=== PATIENT | female | born 1935 | race Caucasian/White ===

== ENCOUNTER 2022-05-11 13:31 | Outpatient (CLI) | payer MEDICARE, SELFPAY ==
--- NOTE | ~2022-05-11 | MR_ITS ---
EXAMINATION: MR hip RT wo con DATE: 05/11/2022 15:08 INDICATION: Right hip pain TECHNIQUE: Magnetic resonance imaging (MRI) of the right hip was performed without intravenous contr ast. Sequences included full-field axial PD-weighted FS FSE, fluid sensitive FSE STIR and T1-weighted FSE, coronal of the pelvis with PD-weighted FS FSE, T2-weighted FSE, fluid sensitive FSE STIR and T1 -weighted FSE, small field of view of the right hip with axial PD-weighted FS FSE, sagittal PD-weigh beba FS FSE, coronal PD-weighted FS FSE and coronal T2 weighted FSE. Additional radial T1-weighted FG R oriented orthogonal to the acetabular rim were obtained for evaluation of the labrum. COMPARISON: None FINDINGS: Bones/labrum/cartilage: Metallic magnetic field artifact surrounding a left total hip arthroplasty which obscures the adjacen t bone and soft tissues about the left hip and proximal femur. Mild lumbar levocurvature with mild taiwo mbar spondylosis including severe lower lumbar facet osteoarthritis. No fracture, avascular necrosis or pathologic marrow replacing process. Severe osteoarthritis at the right hip with severe joint spac e narrowing with essentially [id number] apposition and prominent subarticular cystic changes at bot h sides of the joint space posterior superior medially and posteriorly. Moderate to large marginal os teophytes about the right femoral head. Linear tear at the base of the superolateral right acetabular labrum with more irregular degenerative tearing of the anterosuperior and anterior labrum. Fluid: Likely reactive small right hip joint effusion. Soft tissues: Intramuscular lipoma along the superficial margin of the distal right gluteus medius muscle which last sures 5.4 cm craniocaudally, 6.5 cm AP and 1.9 cm maximal medial to lateral thickness. Relatively sym metric likely age-related mild muscular atrophy in the pelvis and proximal thighs. The iliopsoas, glu teal and proximal hamstring tendons are normal although assessment of the left iliopsoas and gluteal tendons is somewhat limited by the magnetic field artifact related to the left total hip arthroplasty . Mild sigmoid diverticulosis without adjacent inflammatory change to suggest diverticulitis. Limited evaluation of visceral organs of the pelvis is unremarkable. No pathologically enlarged pelvic/ingu inal lymphadenopathy. IMPRESSION: 1. Severe right hip osteoarthritis with associated labral tear and small likely reactive joint effusi on. 2. Mild lumbar levocurvature with mild spondylosis and severe lower lumbar facet osteoarthritis. 3. Incidental 6.5 x 5.4 x 1.9 cm right gluteus medius intramuscular lipoma. Reviewed, dictated and finalized at location B. IMPRESSION: 1. Severe right hip osteoarthritis with associated labral tear and small likely reactive joint effusion. 2. Mild lumbar levocurvature with mild spondylosis and severe lower lumbar face t osteoarthritis. 3. Incidental 6.5 x 5.4 x 1.9 cm right gluteus medius intramuscular lipoma.
== END 2022-05-11 13:32 | disposition home or self-care (01) ==
PROVIDERS: PCP Internal Medicine; Visit Provider Anesthesiology Pain Medicine
DX: M16.11 Unilateral primary osteoarthritis, right hip (principal)
CPT/HCPCS: 73721

== ENCOUNTER 2022-09-26 13:47 | Outpatient (CLI) | payer MEDICARE, SELFPAY ==
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
== END 2022-09-26 13:48 | disposition home or self-care (01) ==
PROVIDERS: PCP Internal Medicine; Visit Provider Internal Medicine
DX: R07.89 Other chest pain (principal)
CPT/HCPCS: 71046

== ENCOUNTER 2024-03-22 08:49 | Emergency (ER) | payer MEDICARE, SELFPAY ==
[2024-03-22] VITALS (11 sets, daily range): BP systolic 156–192; BP diastolic 85–94; PULSE 61–94; RESP 13–23; TEMP 36.6; O2SAT 95–100
--- NOTE | ~2024-03-22 | CT_ITS ---
CT of the Abdomen and Pelvis: Indication: Abdominal pain Technique: 2.5 mm axial scans were obtained through the abdomen and pelvis following intravenous adm inistration of 100 cc of Omnipaque 350. Dose reduction technique was used on this scan by utilizing a utomated exposure control and iterative reconstruction technique. The dose-length product (DLP) was 6 32.14 mGy-cm. Findings: Scans through the lung bases are unremarkable. The liver, spleen, and adrenal glands are within normal limits. Gallbladder absent. There are several small cystic lesions of the pancreas, largest measuring approximately 1 cm in diameter. Bilateral no nobstructing renal stones are present, largest at the right lower pole measuring 8 mm. There is a 2 m m stone at the right UVJ versus just within the urinary bladder. There are probable parapelvic renal cysts bilaterally rather than hydronephrosis. There is a 1.3 cm densely calcified aneurysm probably o f the left renal artery (axial image 61). There is a 0.9 cm densely calcified aneurysm of the right r enal artery (axial image 72). There are atherosclerotic calcifications of the aorta. No lymphadenopa thy. No bowel obstruction or bowel wall thickening. There is no evidence to suggest acute appendicitis. Images through the pelvis are degraded by streak artifact from left hip arthroplasty. Urinary bladder unremarkable. No pelvic mass seen. No ascites. Small amount of left perinephric fluid present, nonsp ecific. Impression: Bilateral nonobstructing renal stones. 2 mm right UVJ stone versus urinary bladder stone. Probable bilateral parapelvic renal cysts rather than hydronephrosis. Small amount of left perinephric fluid, nonspecific. Correlate for pancreatitis or calyceal rupture. Bilateral renal artery aneurysms, densely calcified, as detailed above. Multiple small cystic lesions the pancreas, likely low malignant potential lesions. Consider follow-u p exam in one year to reassess. Reviewed, dictated and finalized at location . Impression: Bilateral nonobstructing renal stones. 2 mm right UVJ stone versus urinary blad mellisa stone. Probable bilateral parapelvic renal cysts rather than hydronephrosis. Small amount of left perinephric fluid, nonspecific. Correlate for pancreatitis or calyceal rupture. Bilateral renal artery aneurysms, densely calcified, as detailed above. Multiple small cystic lesions the pancreas, likely low malignant potential lesi ons. Consider follow-up exam in one year to reassess.
--- NOTE | 2024-03-22 09:11 | ED.GENADULT ---
HPI - General Adult General Chief complaint: Abdominal Pain Stated complaint: n/v, weakness, L flank pain Time Seen by Provider: 03/22/24 08:55 History of Present Illness HPI narrative: Sophia Noramn is an 88 y/o female with PMHx of HTN/ Afib/ Gerd- who presents today with reports of left flank pain that started in the night and now has progressed to her left lower abdomen. She states it feels like a kidney stone but the pain did not pass and now it is in the left lower abdomen. Denies any fevers/chills/ no dysuria/ denies nausea/ vomiting. Reports pain has improved at this time. Related Data Home Medications Medication Instructions Recorded Confirmed ascorbate calcium (vitamin C) 500 500 mg PO DAILY 11/13/20 12/23/23 mg tablet cholecalciferol (vitamin D3) 125 125 mcg PO DAILY 11/13/20 12/23/23 mcg (5,000 unit) capsule coenzyme Q10 75 mg capsule (Ultra 75 mg PO DAILY 11/13/20 12/23/23 CoQ10) magnesium oxide,aspartate,citr mg PO 11/13/20 12/23/23 (Triple Magnesium Complex) vitamin B complex (B 1 tablet PO DAILY 11/13/20 12/23/23 Complex-Vitamin B12 tablet) alpha lipoic acid 600 mg capsule 600 mg PO DAILY 12/23/23 12/23/23 carvedilol 6.25 mg tablet mg PO BID 12/23/23 12/23/23 Allergies Allergy/AdvReac Type Severity Reaction Status Date / Time oxycodone Allergy Severe SEVERE Verified 03/22/24 08:55 ITCHEY hydrocodone Allergy Intermediate Itching Verified 03/22/24 08:55 Review of Systems Review of Systems: CONSTITUTIONAL: Denies fever, chills, or sweats. EYES: Denies visual changes, redness, or discharge. ENT: Denies rhinorrhea, congestion, sore throat, or otalgia. CARDIOVASCULAR: Denies chest pain, palpitations, or edema. RESPIRATORY: Denies cough or dyspnea. GASTROINTESTINAL: Reports of left lower abdominal pain, denies nausea, vomiting, or diarrhea. GENITOURINARY: Denies dysuria or hematuria. SKIN: Denies rash or itching. MUSCULOSKELETAL: Reports of left flank pain earlier that has subsided, no joint pain, or myalgia. NEUROLOGIC: Denies headache, numbness, dizziness, or weakness. PSYCHIATRIC: Denies anxiety or depression. [facility] Past Medical History Medical History Atrial fibrillation Essential (primary) hypertension GERD (gastroesophageal reflux disease) Surgical History Surgical History History of appendectomy History of cholecystectomy History of left hip replacement History of shoulder surgery History of total right knee replacement Hx of tonsillectomy Family History Family History Mother Hypertension Father Hypertension Sibling Parkinson disease Social History Social History Smoking status: Never smoker Alcohol intake: never Substance use: never Substance use type: does not use Lack of Transportation: No Lack of Food: Never True Current Housing: I Have Housing Concerned About Future Housing: No Difficulty Paying Gas/Electric Bills: No Difficulty Paying for Meds: No Currently Unemployed: No Education: High School Diploma/GED Difficulty w/ Childcare or Family Care: No Living arrangements: with family Additional living arrangements comments: has dementia and she is primary caregiver Occupation/Education: retired Gender identity (if verbalized by the patient): Female Sexual Orientation (if Verbalized by the Patient): Straight or Heterosexual Exam Narrative: GENERAL: Well-appearing, well-nourished, and in no acute distress. HEAD: Normocephalic, atraumatic. EYES: PERRLA and EOMI. ENT: Nares clear, no rhinorrhea or epistaxis. Mucous membranes moist. Oropharynx without tonsillar hypertrophy exudate or other lesions. NECK: Supple. No adenopathy or masses. No carotid bruits or JVD C
[2024-03-22 09:22] LABS: Basophils Percent Auto 0.3 % (0.2-1.2); Eosinophils Percent Auto 0.3 % (0-4.4); Hematocrit 45.6 % (37.0-47.0); Immature Granulocyte Absolute 0.04 K/mm3 (0.00-0.031); Immature Granulocyte Percent A 0.4 % (0-0.5); Lymphocytes Absolute Auto 0.75 K/mm3 (0.9-3.2); Lymphocytes Percent Auto 6.6 % (18.3-44.2); Mean Corpuscular HGB Conc 32.9 g/dl (32-36); Mean Corpuscular Hemoglobin 31.3 pg (26-34); Mean Platelet Volume 11.4 fl (7.4-10.4); Monocytes Absolute Auto 0.4 K/mm3 (0.1-0.6); Monocytes Percent Auto 3.5 % (2.6-8.5); Neutrophils Percent Auto 88.9 % (45.5-73.1); Platelet Count Result 190 k/mm3 (150-375); Red Cell Distribution Width 13.2 % (11.5-14.5); White Blood Count 11.3 K/mm3 (4.5-10.0)
[2024-03-22 09:34] LABS: Alanine Aminotransferase 23 U/L (6-35); Albumin Level 4.5 g/dL (3.5-5.1); Alkaline Phosphatase 92 U/L (38-126); Anion Gap 7 mmol/L (4-12); Aspartate Amino Transferase 27 U/L (14-36); Bilirubin,Total 1.1 mg/dL (0.2-1.3); Blood Urea Nitrogen 19 mg/dL (7-17); Calcium 10.3 mg/dL (8.4-10.2); Carbon Dioxide 29 mmol/L (22-30); Chloride 99 mmol/L (98-107); Estimated CRCL calculation 34 ml/min; Estimated Glomerular Filt Rate 52; Glucose 134 mg/dL (65-110); Potassium 3.9 mmol/L (3.4-5.0); Sodium 135 mmol/L (137-145)
[2024-03-22 09:38] LABS: Appearance Urine Cloudy (Clear); Bacteria Urine None Seen /hpf; Bilirubin Urine Negative (Negative); Blood Urine 3+ (Negative); Color Urine Dark Yellow (Yellow); Glucose Urine UA Negative (Negative); Ketones Urine 1+ mg/dL (Negative); Leukocyte Esterase Ur Negative LEU/UL (Negative); Need Manual Microscopic Reviewed; Nitrate Urine Negative (Negative); Protein Urine 1+ mg/dL (Negative); RBC Urine 51-100 /hpf (0-2); Squamous Epithelial Cell Urine None Seen /hpf (Few); Urobilinogen Urine 0.2 mg/dL (<2.0); WBC Urine 0-5 /hpf (0-3); pH Urine 5.5 (5.0-9.0)
[2024-03-22 09:40] LABS: Add Urine Microscopic? YES
--- NOTE | 2024-03-22 10:52 | PC.NURSE ---
Lab called regarding add on lipase.
[2024-03-22 11:11] LABS: Lipase 61 U/L (23-300)
== END 2024-03-22 13:00 | disposition home or self-care (01) ==
PROVIDERS: Emergency Provider Nurse Practitioner Family; PCP Nurse Practitioner Family
DX: N20.0 Calculus of kidney (principal); N28.1 Cyst of kidney, acquired; R31.9 Hematuria, unspecified; I48.91 Unspecified atrial fibrillation; I10 Essential (primary) hypertension; K21.9 Gastro-esophageal reflux disease without esophagitis; Z90.49 Acquired absence of other specified parts of digestive tract; Z96.642 Presence of left artificial hip joint; Z96.651 Presence of right artificial knee joint; Z79.01 Long term (current) use of anticoagulants; K86.9 Disease of pancreas, unspecified; I72.2 Aneurysm of renal artery
CPT/HCPCS: 36415; 74177; 80053; 81001; 83690; 85025; 99284; Q9967

== ENCOUNTER 2024-04-21 12:09 | Outpatient (CLI) | payer MEDICARE, SELFPAY ==
--- NOTE | ~2024-04-21 | US_ITS ---
EXAMINATION: US venous doppler [facility] DATE: 04/21/2024 12:52 INDICATION: Left lower limb pain and edema. Other specified soft tissue disorders. TECHNIQUE: Grayscale ultrasound images without and with compression and Doppler ultrasound images of the left lower extremity veins were obtained. COMPARISON: None. FINDINGS: The visualized portions of left common femoral vein, profunda (deep) femoral vein, femoral vein, phuong donna veins, posterior tibial veins, and greater saphenous vein outflow are patent. There is thrombus in left popliteal vein. IMPRESSION: 1. Deep vein thrombosis involving left popliteal vein. Reviewed, dictated and finalized at location A.
== END 2024-04-21 12:10 | disposition home or self-care (01) ==
LOC: ANHIMG 12:10
PROVIDERS: PCP Nurse Practitioner Family; Visit Provider Nurse Practitioner Family
DX: I82.432 Acute embolism and thrombosis of left popliteal vein (principal); M79.89 Other specified soft tissue disorders
CPT/HCPCS: 93971

== ENCOUNTER 2025-01-27 09:35 | Outpatient (CLI) | payer MEDICARE, OTHER, SELFPAY ==
--- NOTE | ~2025-01-27 | US_ITS ---
EXAMINATION: US venous doppler [facility] DATE: 01/27/2025 10:19 INDICATION: Acute left lower limb deep vein thrombosis. TECHNIQUE: Grayscale ultrasound images without and with compression and Doppler ultrasound images of the left lower extremity veins were obtained. COMPARISON: Ultrasound 04/21/2024 FINDINGS: The visualized portions of left common femoral vein, profunda (deep) femoral vein, femoral vein, popl iteal vein, peroneal veins, posterior tibial veins, and greater saphenous vein outflow are patent. IMPRESSION: 1. No deep venous thrombosis. Reviewed, dictated and finalized at location A. ONAL ENGINEER
--- NOTE | ~2025-01-27 | CT_ITS ---
EXAMINATION: CT abdomen pelvis w con DATE: 01/27/2025 10:26 INDICATION: Pancreatic cyst TECHNIQUE: Computed tomography (CT) of the abdomen and pelvis was performed with 100 mL Omnipaque-350 intravenous contrast. Automated exposure control and iterative reconstruction technique were employe d. The dose-length product was 570.32 mGy-cm. COMPARISON: 03/22/2024 FINDINGS: Mild dependent atelectasis in the bilateral lower lobes. Heart size is normal. No pericardial or pleu ral effusion. Small sliding-type hiatal hernia. Heterogeneous enhancement pattern of the liver likely due to phase of contrast. Gallbladder is nonvisualized and likely surgically absent. Spleen and bila teral adrenal glands are normal. No interval change in several small cystic pancreatic lesions the 2 largest at the head and body of the pancreas and measuring up to 10 mm in maximal diameter. Bilateral renal cysts the largest on the left measuring 4.4 cm. There are 6 nonobstructing right renal stones the largest measuring up to 6 mm in maximal diameter. 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 Moderate amount of stool scattered throughout the colon. No dilated loops of bowel to suggest obstruction. Bladder, uterus and bilateral adnexa are unremarkable. No free intr aperitoneal gas or fluid. No pathologically enlarged abdominal or pelvic lymphadenopathy. Severe righ t hip osteoarthritis. Partially visualized left total hip arthroplasty. Mild lumbar levoscoliosis wit h moderate spondylosis. IMPRESSION: 1. No interval change in a few cystic pancreatic lesions measuring up to 10 mm. Recommend additional 1 year follow-up pre and postcontrast MRI or CT. 2. Nonobstructing right nephrolithiasis. 3. 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 0 cm the right renal hilum. Line 4. Small sliding-type hiatal hernia. Reviewed, dictated and finalized at location B. T PROTECTION PROFESSIONAL IMPRESSION: 1. No interval change in a few cystic pancreatic lesions measuring up to 10 mm. Recommend additional 1 year follow-up pre and postcontrast MRI or CT. 2. Nonobstructing right nephrolithiasis. 3. 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 Line 4. Small sliding-type hiatal hernia.
--- OUTSIDE RECORDS SUMMARY | 2025-01-27 10:15 | XMS_ITS | Clinical Summary ---
Author Organization [facility] Address [address] [place] [id number] Care Team Providers Care Wildlife Officer Name Role Phone Unavailable Primary Care Provider Unavailabl e Social History Tobacco Use Types Packs/Day Years Used Date Smoking Tobacco: Never Assessed Comments Unknown Sex and Gender Information Value Date Recorded Sex Assigned at Not on file Legal Sex Female 8:10 PM CDT Gender Identity Not on file Sexual Orientation Not on file Plan of Treatment Health Maintenance Due Date Last Done Comments DTaP, Tdap and Td Vaccines ( 1 - Tdap) 1955 Zoster Vaccines (1 of 2) 1986 Pneumococcal Vaccine: 65+ Ye ars (1 of 1 - PCV) 2001 RSV Immunization or 60+ Years (1 - 1-dose 75+ series) 2011 COVID-19 Vaccine (2023-2 5 season) 2024 Influenza Adult (#1) 2024 Meningococcal B Vaccine Aged Out No l onger eligible based on patient's age to complete this topic Meningococcal Vaccine Aged Out No beatriz leonel eligible based on patient's age to complete this topic RSV Immunizations Under 20 Months Aged Out No longer eligible based on patient's age to complete this topic
--- OUTSIDE RECORDS SUMMARY | 2025-01-27 10:15 | XMS_ITS | Patient Health Summary ---
Author Organization [facility] Address [address] [place] [address] Care Team Providers Care Police Pilot Name Role Phone Thomas Christina MD Primary Care Provider [phone] Note from [facility] [place],non-owned Affiliates and Associated Physician Practices is amultiple site organization consisting of ambulatory clinics and hospital sitesin [place], [place], [place]. This disclosure is being madepursuant to the Care Everywhere program and may not contain all information available regarding this patient. Last updated 18.[facility] [employer] Allergies No known active allergies Medications * Be aware that medications may not be up to date on this document. Alwaysverify current medications with the patient. * losartan (Cozaar) 100 MG tablet(Started 03/18/2023) Take 1 (one) tablet by mouth once daily * hydroCHLOROthiazide (Hydrodiuril) 25 MG tablet(Started 03/19/2024) Take 1 (one) tablet by mouth once daily * carvedilol (Coreg) 6.25 MG tablet(Started 12/10/2023) Take 1 (one) tablet by mouth 2 times daily * B Complex Vitamins CAPS Take 1 capsule by mouth once daily * coenzyme Q10 100 MG capsule Take 100 (one hundred) mg by mouth once daily * Ascorbic Acid 1000 MG Take 1 (one) tablet by mouth once daily * Eliquis 5 MG tablet(Started 09/28/2023) Take 1 (one) tablet by mouth 2 times daily * tamsulosin (Flomax) 0.4 MG capsule(Started 05/17/2024) Take 1 (one) capsule by mouth once daily for 90 days At the same time every day after a meal. Active Problems Problem Noted Date Diagnosed Date Acute deep vein thrombosis ( DVT) of popliteal vein of left lower extremity 05/08/2024 Paroxysmal atrial fibrillation 05/08/2024 On apixaban therapy 05/08/2024 Resistant hypertension 05/08/2024 Leukocytosis, unspecified type 05/07/2024 Left leg pain 05/07/2024 Cellulitis of left lower extremity 05/07/2024 Social History Tobacco Use Types Packs/Day Years Used Date Smoking Tobacco: Never Smokeless Tobacco: Never Tobacco Cessation:Counseling Given: Not Answered Alcohol Use Standard Drinks/Week Comments Never 0 (1 standard drink = 0.6 oz pur e alcohol) AUDIT-C Answer Date Recorded Q1: How often do you have a drink containing alcohol? Never 05/14/2024 Q2: How many drinks containi ng alcohol do you have on a typical day when you are drinking? Patient does not drink Q3: How often do you have si x or more drinks on one occasion? Never 05/14/2024 Overall Financial Resource Strain (CARDIA) Answe r Date Recorded How hard is it for you to pa y for the very basics like food, housing, medical care, and heating? Not hard at all 05/14/2024 [facility] [employer] [facility] [employer] [facility] - Occupational Stress Questionnaire Answer Date Recorded Do you feel stress - tense, restless, nervous, or anxious, or unable to sleep at night because your mind is troubled all the time - these days? Not at all 05/14/2024 Hunger Vital Sign Answer Date Recorded Within the past 12 months, y ou worried that your food would run out before you got the money to buy more. Never true 05/14/20 24 Within the past 12 months, t he food you bought just didn't last and you didn't have money to get more. Never true 05/14/2024 PRAPARE - Transportation Answer Date Re corded In the past 12 months, has l ack of transportation kept you from medical appointments or from getting medications? No 04/24 In the past 12 months, has l ack of transportation kept you from meetings, work, or from getting things needed for daily living? No 05/14/2024 Housing Stability Vital Sign Answer Dante e Recorded In the last 12 months, was t here a time when you were not able to pay the mortgage or rent on time? No 05/14/2024 In the last 12 months, how many places have you lived? 0 05/14/2024 In the last 12 months, was t here a time when you did not have a steady place to sleep or slept in a assisted (including now)? No 05/14/2024 Sex and Gender Information Value Date Recorded Sex Assigned at Not on file Gender Identity Not on file Sexual Orientation Not on file Last Filed Vital Signs Vital Sign Reading Time Taken Comments Blood Pressure 110/77 05/17/2024 11:28 AM CDT Pulse 87 05/17/2024 11:28 AM CDT Temperature 36.4 C (97.5 F) 05/17/2024 11:28 AM CDT Respiratory Rate 18 05/17/2024 11:28 AM CDT Oxygen Saturation 95% 05/17/2024 11:28 AM CDT Inhaled Oxygen Concentration - - Weight 72.6 kg (160 lb) 05/17/2024 4:00 AM CDT Height 160 cm (5' 2.99 ) 05/09/2024 4:49 PM CDT Body Mass Index 28.35 05/09/2024 4:49 PM CDT Procedures * CARDIAC EKG ORDER(Performed 05/19/2024) * SARS-COV-2 (COVID-19) RAPID(Performed 05/17/2024) * CBC W/O DIFFERENTIAL(Performed 05/17/2024) Performed for Cellulitis of left lower extremity * PHOSPHORUS BLOOD(Performed 05/17/2024) Performed for Cellulitis of left lower extremity * MAGNESIUM BLOOD(Performed 05/17/2024) Performed for Cellulitis of left lower extremity * BASIC METABOLIC PANEL (CALCIUM TOTAL)(Performed 05/17/2024) Performed for Cellulitis of left lower extremity * VANCOMYCIN LEVEL TROUGH(Performed 05/16/2024) * CBC W/O DIFFERENTIAL(Performed 05/16/2024) Performed for Cellulitis of left lower extremity * PHOSPHORUS BLOOD(Performed 05/16/2024) Performed for Cellulitis of left lower extremity * MAGNESIUM BLOOD(Performed 05/16/2024) Performed for Cellulitis of left lower extremity * BASIC METABOLIC PANEL (CALCIUM TOTAL)(Performed 05/16/2024) Performed for Cellulitis of left lower extremity * VANCOMYCIN LEVEL PEAK(Performed 05/15/2024) * CBC W/O DIFFERENTIAL(Performed 05/15/2024) Performed for Cellulitis of left lower extremity * PHOSPHORUS BLOOD(Performed 05/15/2024) Performed for Cellulitis of left lower extremity * MAGNESIUM BLOOD(Performed 05/15/2024) Performed for Cellulitis of left lower extremity * BASIC METABOLIC PANEL (CALCIUM TOTAL)(Performed 05/15/2024) Performed for Cellulitis of left lower extremity * PREPARE RBC LEUKOREDUCED UNIT(Performed 05/15/2024) * CBC W/O DIFFERENTIAL(Performed 05/14/2024) Performed for Cellulitis of left lower extremity * CBC W/O DIFFERENTIAL(Performed 05/14/2024) Performed for Cellulitis of left lower extremity * PHOSPHORUS BLOOD(Performed 05/14/2024) Performed for Cellulitis of left lower extremity * MAGNESIUM BLOOD(Performed 05/14/2024) Performed for Cellulitis of left lower extremity * BASIC METABOLIC PANEL (CALCIUM TOTAL)(Performed 05/14/2024) Performed for Cellulitis of left lower extremity * CBC W/O DIFFERENTIAL(Performed 05/13/2024) Performed for Cellulitis of left lower extremity * CBC W/O DIFFERENTIAL(Performed 05/13/2024) Performed for Cellulitis of left lower extremity * PHOSPHORUS BLOOD(Performed 05/13/2024) Performed for Cellulitis of left lower extremity * MAGNESIUM BLOOD(Performed 05/13/2024) Performed for Cellulitis of left lower extremity * BASIC METABOLIC PANEL (CALCIUM TOTAL)(Performed 05/13/2024) Performed for Cellulitis of left lower extremity * CBC W/O DIFFERENTIAL(Performed 05/12/2024) Performed for Cellulitis of left lower extremity * CULTURE FLUID+GRAM STAIN(Performed 05/12/2024) * CULTURE ANAEROBE(Performed 05/12/2024) * IR US GUIDE NEEDLE PLACEMENT(Performed 05/12/2024) Performed for Leg hematoma, left, sequela * PREPARE RBC LEUKOREDUCED UNIT(Performed 05/12/2024) * VANCOMYCIN LEVEL TROUGH(Performed 05/12/2024) * FOLATE(Performed 05/12/2024) * VITAMIN B12(Performed 05/12/2024) * FERRITIN(Performed 05/12/2024) * IRON + TRANSFERRIN PANEL(Performed 05/12/2024) * CK BLOOD(Performed 05/12/2024) * PHOSPHORUS BLOOD(Performed 05/12/2024) Performed for Cellulitis of left lower extremity * MAGNESIUM BLOOD(Performed 05/12/2024) Performed for Cellulitis of left lower extremity * BASIC METABOLIC PANEL (CALCIUM TOTAL)(Performed 05/12/2024) Performed for Cellulitis of left lower extremity * CBC W/O DIFFERENTIAL(Performed 05/12/2024) Performed for Cellulitis of left lower extremity * BLOOD TYPE VERIFICATION(Performed 05/11/2024) * TYPE + SCREEN PANEL(Performed 05/11/2024) * CBC W/O DIFFERENTIAL(Performed 05/11/2024) * CT ANGIO LOWER EXTREMITY LEFT(Performed 05/11/2024) Performed for Leg hematoma, left, sequela * PHOSPHORUS BLOOD(Performed 05/11/2024) Performed for Cellulitis of left lower extremity * MAGNESIUM BLOOD(Performed 05/11/2024) Performed for Cellulitis of left lower extremity * CBC W/O DIFFERENTIAL(Performed 05/11/2024) Performed for Cellulitis of left lower extremity * BASIC METABOLIC PANEL (CALCIUM TOTAL)(Performed 05/11/2024) Performed for Cellulitis of left lower extremity * CULTURE BLOOD(Performed 05/10/2024) * CULTURE BLOOD(Performed 05/10/2024) * URINALYSIS REFLEX TO MICROSCOPIC NO CULTURE(Performed 05/10/2024) * XR CHEST 1VW PORTABLE(Performed 05/10/2024) Performed for Leukocytosis, unspecified type * PHOSPHORUS BLOOD(Performed 05/10/2024) Performed for Cellulitis of left lower extremity * MAGNESIUM BLOOD(Performed 05/10/2024) Performed for Cellulitis of left lower extremity * CBC W/O DIFFERENTIAL(Performed 05/10/2024) Performed for Cellulitis of left lower extremity * BASIC METABOLIC PANEL (CALCIUM TOTAL)(Performed 05/10/2024) Performed for Cellulitis of left lower extremity * MRI FEMUR LEFT WWO CONTRAST(Performed 05/10/2024) Performed for Left leg pain, Leg mass, left * MRI TIBIA FIBULA LEFT WWO CONT(Performed 05/10/2024) Performed for Left leg pain, Leg mass, left * XR TIBIA FIBULA LEFT 2VW(Performed 05/09/2024) Performed for Left leg pain, Leg mass, left * XR FEMUR LEFT 2VW(Performed 05/09/2024) Performed for Left leg pain, Leg mass, left * CARDIAC EKG ORDER(Performed 05/09/2024) * PHOSPHORUS BLOOD(Performed 05/09/2024) Performed for Cellulitis of left lower extremity * MAGNESIUM BLOOD(Performed 05/09/2024) Performed for Cellulitis of left lower extremity * CBC W/O DIFFERENTIAL(Performed 05/09/2024) Performed for Cellulitis of left lower extremity * BASIC METABOLIC PANEL (CALCIUM TOTAL)(Performed 05/09/2024) Performed for Cellulitis of left lower extremity * VAS LEFT VENOUS DUPLEX LE(Performed 05/09/2024) Performed for Left leg pain * TROPONIN-I HIGH SENSITIVE(Performed 05/08/2024) Performed for Cellulitis of left lower extremity * KAPPA/LAMBDA LITE CHAIN FREE PANEL(Performed 05/08/2024) Performed for Hypercalcemia * PROTEIN ELECTROPHORESIS BLOOD(Performed 05/08/2024) Performed for Hypercalcemia * PHOSPHORUS BLOOD(Performed 05/08/2024) Performed for Cellulitis of left lower extremity * MAGNESIUM BLOOD(Performed 05/08/2024) Performed for Cellulitis of left lower extremity * CBC W/O DIFFERENTIAL(Performed 05/08/2024) Performed for Cellulitis of left lower extremity * BASIC METABOLIC PANEL (CALCIUM TOTAL)(Performed 05/08/2024) Performed for Cellulitis of left lower extremity * TROPONIN-I HIGH SENSITIVE REFLEX 1HOUR(Performed 05/07/2024) * EKG 12-LEAD(Performed 05/07/2024) Performed for Left leg pain * C-REACTIVE PROTEIN(Performed 05/07/2024) * ERYTHROCYTE SEDIMENTATION RATE(Performed 05/07/2024) * B-TYPE NATRIURETIC PEPTIDE(Performed 05/07/2024) * PT-INR SLH(Performed 05/07/2024) * TROPONIN-I HIGH SENSITIVE BASELINE + 1HR(Performed 05/07/2024) * LACTIC ACID BLOOD REFLEX TO REPEAT(Performed 05/07/2024) * COMPREHENSIVE METABOLIC PANEL(Performed 05/07/2024) * CBC W AUTO DIFFERENTIAL(Performed 05/07/2024) * URINE MICROSCOPIC ONLY REFLEX TO CULTURE(Performed 05/07/2024) * URINALYSIS REFLEX MICROSCOPIC REFLEX CULTURE(Performed 05/07/2024) * CULTURE URINE(Performed 05/07/2024) * XR CHEST 1VW PORTABLE(Performed 05/07/2024) Performed for Left leg pain * CULTURE AEROBIC(Performed 10/05/2014) * CULTURE AEROBIC + GRAM STAIN(Performed 05/31/2014) * CULTURE AEROBIC(Performed 05/31/2014) * GRAM STAIN SMEAR(Performed 05/31/2014) Results * CARDIAC EKG ORDER (05/19/2024 12:12 PM CDT) Only the most recent of2 resultswithin the time period is included. Narrative 05/19/2024 12:12 PM CDT Ordered by an unspecified provider. Scanned Document CARDIAC SERVICES ORD ERABLES * SARS-COV-2 (COVID-19) RAPID (05/17/2024 11:30 AM CDT) COVID-19 PCR Not detected Not detected 05/17/20 12:36 PM CDT [facility] Microbiology SPECIMEN FROM NASOPHARYNGEAL STRUCTURE / Unknown Collection / Unknown 05/17/2024 11:30 AM CDT 05/17/2024 11:35 AM CDT Narrative [facility] - 05/17/2024 12:36 PM CDT The Cepheid Xpert Xpress SARS-COV-2 has been authorized by the Food and Drug Administration (FDA) under an Emergency Use Authorization (EUA). This test has been validated in accordance with the FDA's guidance document Policy for Diagnostic Testing in Laboratories Certified to perform High Complexity Testing under CLIA prior to Emergency Use Authorization for Coronavirus Disease-2019 during the Public Health Emergency issued on January 21, 2020. FDA independent review of this validation is pending. This test is only authorized for the duration of the time the declaration that circumstances exist justifying the authorization of emergency use of in vitro diagnostic tests for detection of SARS-COV-2 virus and/or diagnosis of COVID-19 infection under 564(b) (1) of the Act. 21 U.S.C. 360bbb-3 (b) (1), unless the authorization is terminated or revoked sooner. Fact Sheets for this EUA assay are available upon request. Randall Noguera MD LAB - MICROBIOLOGY [place] [address] [address], [facility] [phone] * (ABNORMAL) CBC W/O DIFFERENTIAL (05/17/2024 10:43 AM CDT) Only the most recent of14 resultswithin the time period is included. WBC 11.3(H) 4.0 - 10.7 x10E9/L 05/17/2024 11:05 AM [facility] RBC Count 2.99(L) 3.90 - 5.20 x10E12/L 05/17/2024 11:05 AM [facility] Hemoglobin 9.1(L) 11.9 - 15.8 g/dL 05/17/2024 11:05 AM [facility] Hematocrit 28.0(L) 34.8 - 46.1 % 05/17/2024 11:05 AM [facility] MCV 93.6 80.0 - 98.0 fL 05/17/2024 11:05 AM [facility] MCH 30.4 26.7 - 33.6 pg 05/17/2024 11:05 AM [facility] MCHC 32.5 31.7 - 36.3 g/dL 05/17/2024 11:05 AM [facility] RDW-CV 14.4 11.3 - 14.8 % 05/17/2024 11:05 AM [facility] Platelet Count 444(H) 150 - 420 x10E9/L 05/17/2024 11:05 AM [facility] MPV 10.3 7.8 - 11.4 fL 05/17/2024 11:05 AM [facility] NRBC 0.3(H) <=0.0 /100 WBC 05/17/2024 11:05 AM [facility] Blood BLOOD SPECIMEN / Unknown Lab Venipuncture / Unknown 05/17/2024 10:43 AM CDT 05/17/2024 10:57 AM CDT Sheila Lopez MD LAB - HEMATOLOGY ORD ERABLES [facility] [address] [place] [address], [facility] [phone] * (ABNORMAL) BASIC METABOLIC PANEL (CALCIUM TOTAL) (05/17/2024 10:43 AM CDT) Only the most recent of10 resultswithin the time period is included. BUN 12 7 - 26 mg/dL 05/17/2024 11:27 AM [facility] Creatinine 0.61 0.56 - 0.96 mg/dL 05/17/2024 11:27 AM [facility] Sodium 140 136 - 145 mmol/L 05/17/2024 11:27 AM [facility] Potassium 3.6 3.5 - 4.5 mmol/L 05/17/2024 11:27 AM [facility] Chloride 106 98 - 107 mmol/L 05/17/2024 11:27 AM [facility] CO2 27 22 - 29 mmol/L 05/17/2024 11:27 AM [facility] Glucose 140(H) 70 - 115 mg/dL 05/17/2024 11:27 AM [facility] Calcium 9.2 8.4 - 10.2 mg/dL 05/17/2024 11:27 AM [facility] Anion Gap 7 6 - 16 05/17/2024 11:27 AM [facility] BUN/Creatinine Ratio 20 7 - 23 05/17/2024 11:27 AM [facility] Osmolality Calculated 292 275 - 295 mOsm/kg 05/17/2024 11:27 AM [facility] eGFR by CKD-EPI 86(L) >=90 mL/min/1.7 3 m2 05/17/2024 11:27 AM [facility] Blood BLOOD SPECIMEN / Unknown Lab Venipuncture / Unknown 05/17/2024 10:43 AM CDT 05/17/2024 10:58 AM T Leland Webber MD LAB - CHEMISTRY [place] Organization Address City/State/ZIP Co de Phone Number [facility] [address] [place] [address], [facility] [phone] * PHOSPHORUS BLOOD (05/17/2024 10:43 AM CDT) Only the most recent of10 resultswithin the time period is included. Phosphorus 2.9 2.9 - 5.1 mg/dL 05/17/2024 11:27 AM CDT [facility] Blood BLOOD SPECIMEN / Unknown Lab Venipuncture / Unknown 05/17/2024 10:43 AM CDT 05/17/2024 10:58 AM CDT Leland Webber MD LAB - CHEMISTRY [place] [address] [address], [facility] [phone] * MAGNESIUM BLOOD (05/17/2024 10:43 AM CDT) Only the most recent of10 resultswithin the time period is included. Magnesium 1.7 1.6 - 2.6 mg/dL 05/17/2024 11:27 AM CDT [facility] Blood BLOOD SPECIMEN / Unknown Lab Venipuncture / Unknown 05/17/2024 10:43 AM CDT 05/17/2024 10:58 AM CDT Leland Webber MD LAB - CHEMISTRY [place] [address] [address], [facility] [phone] * VANCOMYCIN LEVEL TROUGH (05/16/2024 1:34 PM CDT) Only the most recent of2 resultswithin the time period is included. Vancomycin Trough 10.5 10.0 - 20.0 ug/mL 05/16/2024 2:07 PM CDT [facility] Blood BLOOD SPECIMEN / Unknown Lab Venipuncture / Unknown 05/16/2024 1:34 PM CDT 05/16/2024 1:42 PM CDT Narrative [facility] - 05/16/2024 2:07 PM CDT See institution protocol. Sheila Lopez MD LAB - CHEMISTRY [place] Performing Organization Address City/[facility]/ZIP Co de Phone Number [address] [address], [facility] [phone] * VANCOMYCIN LEVEL PEAK (05/15/2024 4:47 PM CDT) [facility] Vancomycin Peak 30.8 25.0 - 40.0 ug/mL 05/15/2024 5:34 PM CDT [facility] Blood BLOOD SPECIMEN / Unknown Lab Venipuncture / Unknown 05/15/2024 4:47 PM CDT 05/15/2024 5:24 PM CDT Narrative [facility] - 05/15/2024 5:34 PM CDT See institution protocol. Data does not support the use of vancomycin peak concentration for efficacy. Sheila Lopez MD LAB - CHEMISTRY [place] Performing Organization Address [facility]/[employer] Co de Phone Number [address] [address], [facility] [phone] * PREPARE (CROSSMATCH) RBC UNIT(S), 1 Units (05/15/2024 1:17 AM CDT) Only the most recent of2 resultswithin the time period is included. [facility] Unit Description AS1 LR PRBC [facility] Unit ABO O [facility] Unit Rh POS [facility] Product Number [id number] [facility] B LOOD [facility] LAB Unit Donor # [id number] [facility] Unit Status released [facility] BLOO D B[facility] LAB Product Code [id number] [facility] BLO OD [facility] LAB Blood Type Barcode 5100 [facility] Expiration Date [id number] S BLOOD BANK LAB Blood Bank BLOOD SPECIMEN / Unknown 05/11/2024 12:42 PM CDT Sheila Lopez MD LAB - BLOOD BANK ORD CECY [facility] [address] [place] [address], [facility] [phone] * CULTURE FLUID+GRAM STAIN (05/12/2024 2:57 PM CDT) Culture No growth GALE 05/15/2024 7:33 PM CDT [facility] MICRO[facility] Gram Stain Light Polymorphonuclear cells 05/15/2024 7:33 PM CDT [facility]CRO[facility] Gram Stain No organisms seen 024 7:33 PM CDT [facility]CRO[facility] Fluid BODY FLUID SPECIMEN / Unknown Collection / Unknown 05/12/2024 2:57 PM CDT 05/12/2024 2:57 PM CDT Sheila Lopez MD LAB - MICROBIOLOGY O RDERABLES Performing Organization Address City/[facility]/[employer] Co de Phone Number [facility] MICROBI[facility] [address] [place] [address], [facility] [phone] * TRANSFUSE RED BLOOD CELL LEUKOREDUCED UNIT(S) (05/12/2024 2:36 PM CDT) Sheila Lopez MD NURSING - BLOOD PROD TRANSFUSION * CULTURE ANAEROBE (05/12/2024 1:35 PM CDT) Culture No anaerobic organisms isolated GALE 05/17/2024 11:50 AM CDT [facility] MICROBIOLOG[facility] Microbiology ENTIRE LOWER LIMB / Unknown Collection / Unknown 05/12/2024 1:35 PM CDT 05/12/2024 2:57 PM CDT Sheila Lopez MD LAB - MICROBIOLOGY O RDERABLES Performing Organization Address City/[facility]/ZIP Co de Phone Number [facility] MICROBIOLOG[facility] [address] [place] [address], [facility] [phone] * IR US GUIDE NEEDLE PLACEMENT (05/12/2024 1:34 PM CDT) Anatomical Region Laterality Modality Abdomen, Lung, Chest, Breast X-R ay Angiography 05/12/2024 1:04 PM CDT Impressions 05/12/2024 1:42 PM CDT Impression: Ultrasound-guided aspiration of left thigh hematoma. No fluid could be obtained due to its thick nature. The collection was irrigated with saline which was sent for culture. I, Dr. Bauer, was present and performed/supervised the entire procedure. > Interpreting Provider: Yolanda Bauer MD on 05/12/2024 1:42 PM Narrative 05/12/2024 1:42 PM CDT History: Left thigh hematoma and leukocytosis. Concern for infection. Operators: 1.Attending - Yolanda Bauer MD 2.Resident - None Anesthesia: 1.Local anesthesia - 5 mL of 1% lidocaine Procedure: 1.Limited ultrasound evaluation of the left thigh. 2.Ultrasound-guided aspiration of left medial thigh fluid collection. Procedure in detail: The procedure, risks, and possible complications were explained to the patient and her son in detail, and informed consent was obtained from both. The patient was placed in a supine position on the procedure table and a limited ultrasound evaluation of the left thigh was performed, demonstrating a hypoechoic collection in the medial aspect of the left mid thigh. Pre procedure timeout was performed. The marked site and skin around the region of interest was prepped and draped in sterile fashion. Local anesthesia was provided with 1% Lidocaine. A 5 [place] coaxial needle system was advanced in stages under real time ultrasound guidance. Despite correct needle position confirmed on ultrasound, no fluid was aspirated due to thick nature of known hematoma. Next, the procedure was repeated using an 18 gauge needle. Under real time ultrasound guidance, the 18 gauge needle was advanced into the fluid collection. Again, despite correct needle position confirmed on ultrasound, no fluid was aspirated due to thick nature of known hematoma. The collection was irrigated with saline and 2 mL of serosanguinous aspirate was sent for ordered studies. The patient tolerated the procedure well and was transferred to inpatient floor in stable condition. There were no immediate complications associated with the procedure. Procedure Note Yolanda Bauer MD - 05/12/2024 History: Left thigh hematoma and leukocytosis. Concern for infection. Operators: 1.Attending - Yloanda Bauer MD 2.Resident - None Anesthesia: 1.Local anesthesia - 5 mL of 1% lidocaine Procedure: 1.Limited ultrasound evaluation of the left thigh. 2.Ultrasound-guided aspiration of left medial thigh fluid collection. Procedure in detail: The procedure, risks, and possible complications were explained to the patient and her son in detail, and informed consent was obtained fromboth. The patient was placed in a supine position on the procedure table and a limited ultrasound evaluation of the left thigh was performed, demonstrating a hypoechoic collection in the medial aspect of the leftmid thigh. Pre procedure timeout was performed. The marked site and skin around the region of interest was prepped and draped in sterile fashion. Local anesthesia was provided with 1% Lidocaine. A 5 [place] coaxial needle system was advanced in stagesunder real time ultrasound guidance. Despite correct needle position confirmedon ultrasound, no fluid was aspirated due to thick nature of knownhematoma. Next, the procedure was repeated using an 18 gauge needle. Under realtime ultrasound guidance, the 18 gauge needle was advanced into the fluid collection. Again, despite correct needle position confirmed onultrasound, no fluid was aspirated due to thick nature of known hematoma. The collection was irrigated with saline and 2 mL of serosanguinous aspirate was sent for ordered studies. The patient tolerated the procedure well and was transferred toinpatient floor in stable condition. There were no immediate complicationsassociated with the procedure. Impression: Ultrasound-guided aspiration of left thigh hematoma. Nofluid could be obtained due to its thick nature. The collection was irrigated with saline which was sent for culture. I, Dr. Bauer, was present and performed/supervised the entireprocedure. > Interpreting Provider: Yolanda Bauer MD on 05/12/2024 1:42 PM Samantha MAN IR ORDERABLES * FOLATE (05/12/2024 10:57 AM CDT) Folate 14.1 7.0 - 31.4 ng/mL 05/12/2024 12:22 PM CDT [facility] Blood BLOOD SPECIMEN / Unknown Lab Venipuncture / Unknown 05/12/2024 10:57 AM CDT 05/12/2024 11:06 AM CDT Sheila Lopez MD LAB - CHEMISTRY [place] [facility] [address] [place] [address], [place] [phone] * (ABNORMAL) VITAMIN B12 (05/12/2024 10:57 AM CDT) Vitamin B12 >2,000(H) 213 - 816 pg/mL 05/12/2024 12:18 PM CDT [facility] Blood BLOOD SPECIMEN / Unknown Lab Venipuncture / Unknown 05/12/2024 10:57 AM CDT 05/12/2024 11:06 AM CDT Sheila Lopez MD LAB - CHEMISTRY [place] Performing Organization Address City/[facility]/ZIP Co de Phone Number [address] [address], [place] [phone] * (ABNORMAL) IRON + TRANSFERRIN PANEL (05/12/2024 10:57 AM CDT) Pathologist [facility] Iron 18(L) 40 - 150 ug/dL 05/12/2024 11:47 AM CDT [facility] Transferrin 138(L) 174 - 382 mg/dL 05/12/2024 11:47 AM CDT [facility] Transferrin Saturation % 10(L) 16 - 50 % 05/12/2024 11:47 AM CDT [facility] TIBC Calculated 173(L) 240 - 450 ug/dL 05/12/2024 11:47 AM CDT [facility] Blood BLOOD SPECIMEN / Unknown Lab Venipuncture / Unknown 05/12/2024 10:57 AM CDT 05/12/2024 11:06 AM CDT Sheila Lopez MD LAB - CHEMISTRY [place] [address] [address], [place] [phone] * (ABNORMAL) FERRITIN (05/12/2024 10:57 AM CDT) Ferritin 243(H) 13 - 204 ng/mL 05/12/2024 12:02 PM CDT [facility] Blood BLOOD SPECIMEN / Unknown Lab Venipuncture / Unknown 05/12/2024 10:57 AM CDT 05/12/2024 11:06 AM CDT Sheila Lopez MD LAB - CHEMISTRY [place] [address] [address], [place] [phone] * (ABNORMAL) CK BLOOD (05/12/2024 8:14 AM CDT) CK Total 652(H) 30 - 200 U/L 05/12/2024 9:00 AM CDT [facility] Blood BLOOD SPECIMEN / Unknown Lab Venipuncture / Unknown 05/12/2024 8:14 AM CDT 05/12/2024 8:27 AM CDT Sheila Lopez MD LAB - CHEMISTRY [place] Performing Organization Address City/[facility]/ZIP Co de Phone Number [address] [address], [place] [phone] * BLOOD TYPE VERIFICATION (05/11/2024 5:26 PM CDT) ABO Rh O POS 05/11/2024 6:0 5 PM CDT [facility] Blood Bank BLOOD SPECIMEN / Unknown Lab Venipuncture / Unknown 05/11/2024 5:26 PM CDT 05/11/2024 5:37 PM CDT Sheila Lopez MD LAB - BLOOD BANK ORD CECY [facility] [address] [place] [address], [place] [phone] * TYPE + SCREEN PANEL (05/11/2024 12:31 PM CDT) Antibody Screen NEG 1:53 PM CDT [facility] ABO Rh O POS 05/11/2024 1:53 PM CDT [facility] Blood Bank BLOOD SPECIMEN / Unknown Venipuncture / Unknown 05/11/2024 12:31 PM CDT 05/11/2024 12:42 PM CDT Sheila Lopez MD LAB - BLOOD BANK ORD ERABLES [facility] [address] [place] [address], [facility] [phone] * CT ANGIO LOWER EXTREMITY LEFT (05/11/2024 10:16 AM CDT) Anatomical Region Laterality Modality Lower Extremity Computed Tomogra phy 05/11/2024 11:3 2 AM CDT Impressions 05/11/2024 12:33 PM CDT IMPRESSION: 1.Redemonstrated 6 x 4.4 x 25 cm heterogeneous collection within the anterior compartment musculature of the thigh most compatible with hematoma, better characterize and grossly unchanged in size compared to prior MRI. No evidence of active arterial hemorrhage. 2.Subcutaneous edema throughout the left lower extremity. 3.Redemonstrated 0.9 cm mildly sclerotic lesion in the distal femur, indeterminate. Consider radiographic follow-up in 3 months. The report was drafted by Berkley Champion MD (Typing Element Machine Operator). I, Juana Dixon MD have personally reviewed and interpreted this examination/study. > Interpreting Provider: Juana Dixon MD on 05/11/2024 12:33 PM Narrative 05/11/2024 12:33 PM CDT PROCEDURE: CT ANGIO LOWER EXTREMITY LEFT DATE/TIME OF EXAM: 05/11/2024 10:16 AM CLINICAL INFORMATION: None relevant/not provided if blank. Indication: S80.12XS: Leg hematoma, left, sequela Additional History: COMPARISON: MRI of the femur and tibia/fibula on 04/09/2024. TECHNIQUE: CT CT angiogram of the left lower extremity was performed utilizing standard protocol. 3D reconstructions were performed on an independent workstation. CT dose reduction technique was used, including Automated Exposure Control. IV CONTRAST: IOPAMIDOL 76 % IV SOLN:100 mL FINDINGS: Left common iliac artery: Atherosclerotic with mild multifocal stenoses. Left internal iliac artery: Atherosclerotic with mild multifocal stenoses. Left external iliac artery: Patent without significant focal stenosis. Left common femoral artery: Patent without significant focal stenosis. Left profunda femoris artery: Patent without significant focal stenosis. Left superficial femoral artery: Atherosclerotic but patent without significant focal stenosis. Left popliteal artery: Patent without significant focal stenosis. Left anterior tibial artery: Atherosclerotic but patent without significant focal stenosis. This vessel crosses the ankle and supplies the dorsalis pedis artery. Left tibioperoneal trunk: Patent without significant focal stenosis. Left posterior tibial artery: Atherosclerotic but patent without significant focal stenosis. This vessel crosses the ankle and supplies the plantar artery. Left peroneal artery: Patent without significant focal stenosis. Postoperative changes of left hip arthroplasty is seen. Redemonstrated heterogeneous collection in the anterior compartment musculature of the thigh measuring approximately 6 x 4.4 cm in axial dimension and 25 cm craniocaudally (series 5 image 130 and series 12 image 50) which is grossly unchanged compared to prior MRI and likely represents a large hematoma. No evidence of active arterial hemorrhage. Subcutaneous edema throughout the left lower extremity is seen. Otherwise there is no acute fracture or dislocation. Postsurgical changes of left hip arthroplasty. Moderate degenerative disease of the knee joint is seen. Small knee joint effusion. Redemonstrated 0.9 cm mildly sclerotic lesion in the distal femoral diaphysis (series 11 image 960). Procedure Note Juana Dixon MD - 05/11/2024 PROCEDURE: CT ANGIO LOWER EXTREMITY LEFT DATE/TIME OF EXAM: 05/11/2024 10:16 AM CLINICAL INFORMATION: None relevant/not provided if blank. Indication: S80.12XS: Leg hematoma, left, sequela Additional History: COMPARISON: MRI of the femur and tibia/fibula on 04/09/2024. TECHNIQUE: CT CT angiogram of the left lower extremity was performed utilizing standard protocol. 3D reconstructions were performed on an independent workstation. CT dose reduction technique was used, including Automated ExposureControl. IV CONTRAST: IOPAMIDOL 76 % IV SOLN:100 mL FINDINGS: Left common iliac artery: Atherosclerotic with mild multifocal stenoses. Left internal iliac artery: Atherosclerotic with mild multifocalstenoses. Left external iliac artery: Patent without significant focal stenosis. Left common femoral artery: Patent without significant focal stenosis. Left profunda femoris artery: Patent without significant focal stenosis. Left superficial femoral artery: Atherosclerotic but patent without significant focal stenosis. Left popliteal artery: Patent without significant focal stenosis. Left anterior tibial artery: Atherosclerotic but patent withoutsignificant focal stenosis. This vessel crosses the ankle and supplies the dorsalis pedis artery. Left tibioperoneal trunk: Patent without significant focal stenosis. Left posterior tibial artery: Atherosclerotic but patent without significant focal stenosis. This vessel crosses the ankle and suppliesthe plantar artery. Left peroneal artery: Patent without significant focal stenosis. Postoperative changes of left hip arthroplasty is seen. Redemonstrated heterogeneous collection in the anterior compartment musculature of the thigh measuring approximately 6 x 4.4 cm in axial dimension and 25 cm craniocaudally (series 5 image 130 and series 12image 50) which is grossly unchanged compared to prior MRI and likelyrepresents a large hematoma. No evidence of active arterial hemorrhage. Subcutaneous edema throughout the left lower extremity is seen.Otherwise there is no acute fracture or dislocation. Postsurgical changes of lefthip arthroplasty. Moderate degenerative disease of the knee joint is seen. Small knee joint effusion. Redemonstrated 0.9 cm mildly sclerotic lesion in the distal femoral diaphysis (series 11 image 960). IMPRESSION: 1.Redemonstrated 6 x 4.4 x 25 cm heterogeneous collection within the anterior compartment musculature of the thigh most compatible with hematoma, better characterize and grossly unchanged in size compared to prior MRI. No evidence of active arterial hemorrhage. 2.Subcutaneous edema throughout the left lower extremity. 3.Redemonstrated 0.9 cm mildly sclerotic lesion in the distal femur, indeterminate. Consider radiographic follow-up in 3 months. The report was drafted by Berkley Champion MD (Typing Element Machine Operator). I, Juana Dixon MD have personally reviewed and interpreted this examination/study. > Interpreting Provider: Juana Dixon MD on 05/11/2024 12:33 PM Sheila Lopez MD CT ORDERABLES * CULTURE BLOOD (05/10/2024 6:07 PM CDT) Only the most recent of2 resultswithin the time period is included. Culture No growth day 5 [place] 05/15/2024 11:01 PM CDT [facility] Blood PERIPHERAL BLOOD / Unknown Lab Venipuncture / Unknown 05/10/2024 6:07 PM CDT 05/10/2024 6:12 PM CDT Sheila Lopez MD LAB - MICROBIOLOGY O RDERABLES [facility] [address] [place] [address], [facility] [phone] * (ABNORMAL) URINALYSIS REFLEX TO MICROSCOPIC NO CULTURE (05/10/2024 4:04 PM CDT) Color UA Yellow Straw, Yellow 05/10/2024 4:33 PM T [facility] Clarity UA Clear Clear 05/10/2024 4:33 PM [facility] Specific [place] UA 1.016 1.005 - 1.030 05/10/2024 4:33 PM [facility] pH UA 5.0 5.0 - 8.0 pH 05/10/2024 4:33 PM [facility] Protein UA Negative Negative 05/10/2024 4:33 PM [facility] Glucose UA Negative Negative 05/10/2024 4:33 PM [facility] Ketone UA Negative Negative 05/10/2024 4:33 PM [facility] Bilirubin UA Negative Negative 05/10/2024 4:33 PM [facility] Blood UA Negative Negative 05/10/2024 4:33 PM [facility] Nitrite UA Negative Negative 05/10/2024 4:33 PM [facility] Leukocyte Esterase Trace(A) Negative 05/10/2024 4:33 PM [facility] Urobilinogen UA Negative Negative mg/dL 05/10/2024 4:33 PM [facility] RBC UA 6-10(A) None Seen, 0-2, 3-5 /HPF 05/10/2024 4:33 PM [facility] WBC UA 6-10(A) None Seen, 0-5 /HPF 05/10/2024 4:33 PM CDT [facility] Squamous Epithelial Cells UA 0-2 None Seen, 0-2, 3-5 /HPF 05/10/2024 4:33 PM CDT [facility] Mucus UA 1+ /LPF 05/10/2024 4:33 PM CDT [facility] Urine URINE SPECIMEN OBTAINED BY CLEAN CATCH PROCEDURE / Unknown Collection / Unknown 05/10/2024 4:04 PM CDT 05/10/2024 4:19 PM CDT Narrative [facility] - 05/10/2024 4:33 PM CDT Sheila Lopez MD LAB - URINALYSIS ORD ERABLES [facility] [address] [place] [address], [facility] [phone] * XR CHEST 1VW PORTABLE (05/10/2024 1:33 PM CDT) Only the most recent of2 resultswithin the time period is included. Anatomical Region Laterality Modality Chest Radiographic Kezia ging 05/11/2024 1:37 AM CDT Impressions 05/11/2024 1:38 AM CDT IMPRESSION: No acute cardiopulmonary abnormalities. > Interpreting Provider: Mao Monge MD on 05/11/2024 1:38 AM Narrative 05/11/2024 1:38 AM CDT PROCEDURE: XR CHEST 1VW PORTABLE DATE/TIME OF EXAM: 05/10/2024 1:33 PM CLINICAL INFORMATION: None relevant/not provided if blank. Indication: D72.829: Leukocytosis, unspecified type Additional History: COMPARISON: 05/07/2024. FINDINGS: Single frontal view of the chest demonstrates a normal sized heart and pulmonary vasculature. No focal consolidation, pleural effusion or pneumothorax. No acute osseous abnormalities. Procedure Note Mao Monge MD - 05/11/2024 PROCEDURE: XR CHEST 1VW PORTABLE DATE/TIME OF EXAM: 05/10/2024 1:33 PM CLINICAL INFORMATION: None relevant/not provided if blank. Indication: D72.829: Leukocytosis, unspecified type Additional History: COMPARISON: 05/07/2024. FINDINGS: Single frontal view of the chest demonstrates a normal sized heart and pulmonary vasculature. No focal consolidation, pleural effusion or pneumothorax. No acute osseous abnormalities. IMPRESSION: No acute cardiopulmonary abnormalities. > Interpreting Provider: Mao Monge MD on 05/11/2024 1:38 AM Sheila Lopez MD DIAGNOSTIC IMAGING O RDERABLES * MRI TIBIA FIBULA LEFT WWO CONT (05/10/2024 2:10 AM CDT) Anatomical Region Laterality Modality Lower Extremity Magnetic Resonan ce 05/10/2024 7:25 AM CDT Impressions 05/10/2024 7:52 AM CDT Impression: 1. A 6.5 x 4.8 x 26.1 cm heterogeneous collection within the anterior compartment of the thigh. The MRI appearance is most compatible with a hematoma. An infected hematoma or abscess is in the differential. Hemorrhagic mass is less likely. Recommend clinical follow-up and consider imaging follow-up. 2. Extensive soft tissue edema throughout the thigh and to a lesser extent leg. 3. A 1.0 cm nonspecific bone lesion in the distal femoral diaphysis. Differential includes focal red marrow or bone lesion of benign or malignant etiology. Recommend clinical correlation and consider follow-up. > Interpreting Provider: Elgin Subramanian MD on 05/10/2024 7:52 AM Narrative 05/10/2024 7:52 AM CDT PROCEDURE: MRI FEMUR LEFT WWO CONTRAST, MRI TIBIA FIBULA LEFT WWO CONT DATE/TIME OF EXAM: 05/10/2024 2:56 AM CLINICAL INFORMATION: None relevant/not provided if blank. Indication: M79.605: Left leg pain R22.42: Leg mass, left Additional History: COMPARISON: Left femur and left tibia-fibula x-rays dated 05/09/2024. TECHNIQUE: MRI of the left femur was performed utilizing multiple pulse sequences in multiple planes with and without gadolinium. MRI of the left tibia and fibula was performed utilizing multiple pulse sequences in multiple planes with and without gadolinium. CONTRAST: GADOBUTROL 1 MMOL/ML IV SSM SO:6 mL FINDINGS: Left femur: Total hip arthroplasty is present. There is associated metallic artifact. There is a multilobulated structure within the anterior compartment musculature of the thigh. The central well-defined area measures 6.5 x 4.8 cm axially and 26.1 cm proximal-distal (series 14 image 38 of series 9 image 23). On T2-weighted images there are fluid-fluid levels with hyperintense signal nondependent leg and intermediate signal intensity dependently. The signal is isointense to hypointense on T1-weighted images, also with a fluid fluid level. On postcontrast images, there is no significant central enhancement. There are areas of mild peripheral enhancement. There is greater enhancement around the distal aspect of the collection although this is near the knee and could reflect synovitis of the knee. There is extensive surrounding muscle edema in the anterior compartment. There is also muscle edema and fascial fluid in the medial and posterior compartments. There is subcutaneous edema. No fracture of the femur is visualized. There is a 1.0 cm T1 hypointense, T2 hyperintense lesion in the distal femoral diaphysis with mild enhancement (series 10 image 21). Left tibia-fibula: No tibial or fibular fracture is visualized. Bone marrow signal is normal. There is arthritis at the knee with a small effusion and synovitis. There is mild to moderate muscle, fascial, and subcutaneous edema. No mass or fluid collection is visualized. Procedure Note Elgin Subramanian MD - 05/10/2024 PROCEDURE: MRI FEMUR LEFT WWO CONTRAST, MRI TIBIA FIBULA LEFT WWO CONT DATE/TIME OF EXAM: 05/10/2024 2:56 AM CLINICAL INFORMATION: None relevant/not provided if blank. Indication: M79.605: Left leg pain R22.42: Leg mass, left Additional History: COMPARISON: Left femur and left tibia-fibula x-rays dated 05/09/2024. TECHNIQUE: MRI of the left femur was performed utilizing multiple pulse sequencesin multiple planes with and without gadolinium. MRI of the left tibia and fibula was performed utilizing multiple pulse sequences in multiple planes with and without gadolinium. CONTRAST: GADOBUTROL 1 MMOL/ML IV SSM SO:6 mL FINDINGS: Left femur: Total hip arthroplasty is present. There is associated metallic artifact. There is a multilobulated structure within the anterior compartment musculature of the thigh. The central well-defined area measures 6.5 x4.8 cm axially and 26.1 cm proximal-distal (series 14 image 38 of series 9 image 23). On T2-weighted images there are fluid-fluid levels with hyperintense signal nondependent leg and intermediate signal intensity dependently. The signal is isointense to hypointense on T1-weightedimages, also with a fluid fluid level. On postcontrast images, there is no significant central enhancement. There are areas of mild peripheral enhancement. There is greater enhancement around the distal aspect ofthe collection although this is near the knee and could reflect synovitis of the knee. There is extensive surrounding muscle edema in the anterior compartment. There is also muscle edema and fascial fluid in the medialand posterior compartments. There is subcutaneous edema. No fracture of the femur is visualized. There is a 1.0 cm [id number], T2 hyperintense lesion in the distal femoral diaphysis with mild enhancement (series 10 image 21). Left tibia-fibula: No tibial or fibular fracture is visualized. Bone marrow signal isnormal. There is arthritis at the knee with a small effusion and synovitis.There is mild to moderate muscle, fascial, and subcutaneous edema. No mass or fluid collection is visualized. Impression: 1. A 6.5 x 4.8 x 26.1 cm heterogeneous collection within the anterior compartment of the thigh. The MRI appearance is most compatible with a hematoma. An infected hematoma or abscess is in the differential. Hemorrhagic mass is less likely. Recommend clinical follow-up andconsider imaging follow-up. 2. Extensive soft tissue edema throughout the thigh and to a lesserextent leg. 3. A 1.0 cm nonspecific bone lesion in the distal femoral diaphysis. Differential includes focal red marrow or bone lesion of benign or malignant etiology. Recommend clinical correlation and considerfollow-up. > Interpreting Provider: Elgin Subramanian MD on 05/10/2024 7:52 AM Kiera Giles MD MR ORDERABLES * MRI FEMUR LEFT WWO CONTRAST (05/10/2024 2:10 AM CDT) Anatomical Region Laterality Modality Lower Extremity Magnetic Resonan ce 05/10/2024 7:25 AM CDT Impressions 05/10/2024 7:52 AM CDT Impression: 1. A 6.5 x 4.8 x 26.1 cm heterogeneous collection within the anterior compartment of the thigh. The MRI appearance is most compatible with a hematoma. An infected hematoma or abscess is in the differential. Hemorrhagic mass is less likely. Recommend clinical follow-up and consider imaging follow-up. 2. Extensive soft tissue edema throughout the thigh and to a lesser extent leg. 3. A 1.0 cm nonspecific bone lesion in the distal femoral diaphysis. Differential includes focal red marrow or bone lesion of benign or malignant etiology. Recommend clinical correlation and consider follow-up. > Interpreting Provider: Elgin Subramanian MD on 05/10/2024 7:52 AM Narrative 05/10/2024 7:52 AM CDT PROCEDURE: MRI FEMUR LEFT WWO CONTRAST, MRI TIBIA FIBULA LEFT WWO CONT DATE/TIME OF EXAM: 05/10/2024 2:56 AM CLINICAL INFORMATION: None relevant/not provided if blank. Indication: M79.605: Left leg pain R22.42: Leg mass, left Additional History: COMPARISON: Left femur and left tibia-fibula x-rays dated 05/09/2024. TECHNIQUE: MRI of the left femur was performed utilizing multiple pulse sequences in multiple planes with and without gadolinium. MRI of the left tibia and fibula was performed utilizing multiple pulse sequences in multiple planes with and without gadolinium. CONTRAST: GADOBUTROL 1 MMOL/ML IV SSM SO:6 mL FINDINGS: Left femur: Total hip arthroplasty is present. There is associated metallic artifact. There is a multilobulated structure within the anterior compartment musculature of the thigh. The central well-defined area measures 6.5 x 4.8 cm axially and 26.1 cm proximal-distal (series 14 image 38 of series 9 image 23). On T2-weighted images there are fluid-fluid levels with hyperintense signal nondependent leg and intermediate signal intensity dependently. The signal is isointense to hypointense on T1-weighted images, also with a fluid fluid level. On postcontrast images, there is no significant central enhancement. There are areas of mild peripheral enhancement. There is greater enhancement around the distal aspect of the collection although this is near the knee and could reflect synovitis of the knee. There is extensive surrounding muscle edema in the anterior compartment. There is also muscle edema and fascial fluid in the medial and posterior compartments. There is subcutaneous edema. No fracture of the femur is visualized. There is a 1.0 cm T1 hypointense, T2 hyperintense lesion in the distal femoral diaphysis with mild enhancement (series 10 image 21). Left tibia-fibula: No tibial or fibular fracture is visualized. Bone marrow signal is normal. There is arthritis at the knee with a small effusion and synovitis. There is mild to moderate muscle, fascial, and subcutaneous edema. No mass or fluid collection is visualized. Procedure Note Elgin Subramanian MD - 05/10/2024 PROCEDURE: MRI FEMUR LEFT WWO CONTRAST, MRI TIBIA FIBULA LEFT WWO CONT DATE/TIME OF EXAM: 05/10/2024 2:56 AM CLINICAL INFORMATION: None relevant/not provided if blank. Indication: M79.605: Left leg pain R22.42: Leg mass, left Additional History: COMPARISON: Left femur and left tibia-fibula x-rays dated 05/09/2024. TECHNIQUE: MRI of the left femur was performed utilizing multiple pulse sequencesin multiple planes with and without gadolinium. MRI of the left tibia and fibula was performed utilizing multiple pulse sequences in multiple planes with and without gadolinium. CONTRAST: GADOBUTROL 1 MMOL/ML IV SSM SO:6 mL FINDINGS: Left femur: Total hip arthroplasty is present. There is associated metallic artifact. There is a multilobulated structure within the anterior compartment musculature of the thigh. The central well-defined area measures 6.5 x4.8 cm axially and 26.1 cm proximal-distal (series 14 image 38 of series 9 image 23). On T2-weighted images there are fluid-fluid levels with hyperintense signal nondependent leg and intermediate signal intensity dependently. The signal is isointense to hypointense on T1-weightedimages, also with a fluid fluid level. On postcontrast images, there is no significant central enhancement. There are areas of mild peripheral enhancement. There is greater enhancement around the distal aspect ofthe collection although this is near the knee and could reflect synovitis of the knee. There is extensive surrounding muscle edema in the anterior compartment. There is also muscle edema and fascial fluid in the medialand posterior compartments. There is subcutaneous edema. No fracture of the femur is visualized. There is a 1.0 cm [id number], T2 hyperintense lesion in the distal femoral diaphysis with mild enhancement (series 10 image 21). Left tibia-fibula: No tibial or fibular fracture is visualized. Bone marrow signal isnormal. There is arthritis at the knee with a small effusion and synovitis.There is mild to moderate muscle, fascial, and subcutaneous edema. No mass or fluid collection is visualized. Impression: 1. A 6.5 x 4.8 x 26.1 cm heterogeneous collection within the anterior compartment of the thigh. The MRI appearance is most compatible with a hematoma. An infected hematoma or abscess is in the differential. Hemorrhagic mass is less likely. Recommend clinical follow-up andconsider imaging follow-up. 2. Extensive soft tissue edema throughout the thigh and to a lesserextent leg. 3. A 1.0 cm nonspecific bone lesion in the distal femoral diaphysis. Differential includes focal red marrow or bone lesion of benign or malignant etiology. Recommend clinical correlation and considerfollow-up. > Interpreting Provider: Elgin Subramanian MD on 05/10/2024 7:52 AM Kiera Giles MD MR ORDERABLES * XR TIBIA FIBULA LEFT 2VW (05/09/2024 5:08 PM CDT) Anatomical Region Laterality Modality Lower Extremity Radiographic Kezia ging 05/10/2024 11:3 5 PM CDT Impressions 05/10/2024 11:35 PM CDT IMPRESSION: There is mild tricompartmental left knee osteoarthritis. No acute fracture of the left tibia or fibula. No osseous lesion. > Interpreting Provider: Mao Monge MD on 05/10/2024 11:35 PM Narrative 05/10/2024 11:35 PM CDT PROCEDURE: XR TIBIA FIBULA LEFT 2VW DATE/TIME OF EXAM: 05/09/2024 5:08 PM CLINICAL INFORMATION: None relevant/not provided if blank. Indication: M79.605: Left leg pain R22.42: Leg mass, left Additional History: COMPARISON: None. Procedure Note Mao Monge MD - 05/10/2024 PROCEDURE: XR TIBIA FIBULA LEFT 2VW DATE/TIME OF EXAM: 05/09/2024 5:08 PM CLINICAL INFORMATION: None relevant/not provided if blank. Indication: M79.605: Left leg pain R22.42: Leg mass, left Additional History: COMPARISON: None. IMPRESSION: There is mild tricompartmental left knee osteoarthritis. No acutefracture of the left tibia or fibula. No osseous lesion. 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 There is no periprosthetic fracture or osteolysis. > Interpreting Provider: Mao Monge MD on 05/10/2024 11:35 PM Narrative 05/10/2024 11:35 PM CDT PROCEDURE: XR FEMUR LEFT 2VW DATE/TIME OF EXAM: 05/09/2024 5:08 PM CLINICAL INFORMATION: None relevant/not provided if blank. Indication: M79.605: Left leg pain R22.42: Leg mass, left Additional History: COMPARISON: None. Procedure Note Mao Monge MD - 05/10/2024 PROCEDURE: XR FEMUR LEFT 2VW DATE/TIME OF EXAM: 05/09/2024 5:08 PM CLINICAL INFORMATION: None relevant/not provided if blank. Indication: M79.605: Left leg pain R22.42: Leg mass, left Additional History: COMPARISON: None. IMPRESSION: Changes of left femoral head resection and a total left hip arthroplastyin near-anatomic alignment. There is no periprosthetic fracture orosteolysis. > Interpreting Provider: Mao Monge MD on 05/10/2024 11:35 PM Kiera Giles MD DIAGNOSTIC IMAGING O RDERABLES * VAS LEFT VENOUS DUPLEX LE (05/09/2024 10:10 AM CDT) Anatomical Region Laterality Modality Lower Extremity, Upper Extremity Intravascular Ultrasound 05/09/2024 9:47 AM CDT Narrative Procedure Note Thom Guy MD - 05/09/2024 Kiera Giles MD VASCULAR LAB ORDERAB LES * TROPONIN-I HIGH SENSITIVE (05/08/2024 5:22 AM CDT) Pathologist [facility] Troponin I High Sensitive 11 <=14 ng/L 05/08/2024 6:04 AM CDT [facility] Blood BLOOD SPECIMEN / Unknown Venipuncture / Unknown 05/08/2024 5:22 AM CDT 05/08/2024 5:29 AM CDT Dominguez Tapia MD LAB - CHEMISTRY O RDERABLES [address] [address], [facility] [phone] * KAPPA/LAMBDA LITE CHAIN FREE PANEL (05/08/2024 5:22 AM CDT) Pathologist [facility] [place] Quant Free Light Chain 6.11 3.30 - 19.40 mg/L 05/10/2024 2:23 PM CDT [employer] ([facility]) Comment: INTERPRETIVE INFORMATION: [place] Qnt Free Light Chains Undetected antigen excess is a rare event but cannot be excluded. Free light chain results should always be interpreted in conjunction with other clinical and laboratory findings. Lambda Free Light Chain Quantitative 7.63 5.71 - 26.30 mg/L 05/10/2024 2:23 PM CDT [employer] ([facility]) Comment: INTERPRETIVE INFORMATION: L[place] Qnt Free Light Chains Undetected antigen excess is a rare event but cannot be excluded. Free light chain results should always be interpreted in conjunction with other clinical and laboratory findings. [place]/Lambda Free Light Chain ratio 0.80 0.26 - 1.65 05/10/2024 2:23 PM CDT [employer] ([facility]) Comment: Performed By: [employer] [address] [place] [id number] Promotional Representative: Tej Esquivel MD, PhD CLIA Number: [id number] Blood BLOOD SPECIMEN / Unknown Venipuncture / Unknown 05/08/2024 5:22 AM CDT 05/08/2024 5:28 AM CDT Leland Webber MD LAB - CHEMISTRY [place] Organization Address City/State/ZIP Co de Phone Number [facility]) [address] [place] [phone], [facility] * (ABNORMAL) PROTEIN ELECTROPHORESIS BLOOD (05/08/2024 5:22 AM CDT) Interpretation Serum PE See Comment Normal Pattern 05/17/2024 10:03 AM T [facility] Comment: Serum capillary electrophoresis shows characteristic bands corresponding to albumin, alpha and beta globulins and polyclonal immunoglobulins. No monoclonal immunoglobulin detected. Non-secretory myeloma (NSM) and light chain only myeloma cannot be excluded based on this result. Recommend serum free light chain measurements for complete evaluation of plasma cell disorders. Fabricio Dorantes PhD, [facility] Clinical Beam Sealer sterile processing manager Protein Total 5.4(L) 6.0 - 8.3 g/dL 05/17/2024 10:03 AM [facility] Albumin 3.0(L) 3.3 - 5.6 g/dL 05/17/2024 10:03 AM [facility] Alpha-1 Globulins 0.4 0.2 - 0.4 g/dL 05/17/2024 10:03 AM [facility] Alpha-2 Globulins 1.0 0.5 - 1.0 g/dL 05/17/2024 10:03 AM [facility] Beta Globulins 0.6 0.6 - 1.1 g/dL 05/17/2024 10:03 AM [facility] Gamma Globulins 0.4(L) 0.6 - 1.6 g/dL 05/17/2024 10:03 AM [facility] Blood BLOOD SPECIMEN / Unknown Venipuncture / Unknown 05/08/2024 5:22 AM CDT 05/08/2024 5:28 AM CDT Leland Webber MD LAB - CHEMISTRY [place] Performing Organization Address [facility]/ZIP Co de Phone Number [address] [address], [facility] [phone] * TROPONIN-I HIGH SENSITIVE REFLEX 1HOUR (05/07/2024 8:33 PM CDT) Pathologist [facility] Troponin I High Sensitive 9 <=14 ng/L 05/07/2024 9:25 PM CDT [facility] Delta Troponin I HS 05/07/2024 9:25 PM CDT [facility] Comment:Delta value intentio alvarado not calculated. Baseline to 1 hour specimen collection interval exceeded. Blood BLOOD SPECIMEN / Unknown Venipuncture / Unknown 05/07/2024 8:33 PM CDT 05/07/2024 8:42 PM CDT Leland Webber MD LAB - CHEMISTRY [place] Performing Organization Address [facility] Co de Phone Number [address] [address], [facility] [phone] * EKG 12-LEAD (05/07/2024 6:33 PM CDT) [facility] Ventricular Rate 91 BPM [facility] MUSE Atrial Rate 396 BPM [facility] MUSE QRS Duration ms 82 ms [facility] MUSE Q-T Interval ms 364 ms [facility] MUSE QTC Calculation (Bezet) 447 ms [facility] MUSE Calculated P [place] 69 degrees SL MUSE Calculated R [place] -13 degrees [facility] MUSE Calculated T [place] 16 degrees [facility] MUSE Interpretation EKG ATRIAL FLUTTER WITH VARIABLE A-V BLOCK MINIMAL VOLTAGE CRITERIA FOR LVH, MAY BE NORMAL VARIANT ( R in aVL ) NONSPECIFIC T WAVE ABNORMALITY ABNORMAL ECG NO PREVIOUS ECGS AVAILABLE Confirmed by CHERYL HOLLY MD ([id number]) on 05/08/2024 6:59:28 AM [facility] MUSE 05/07/2024 6:33 PM CDT 05/08/2024 6:59 AM CDT Leland Webber MD ECG ORDERABLES Performing Organization Address [facility]/State/ZIP Co de Phone Number [facility] MUSE * (ABNORMAL) PT-INR [facility] (05/07/2024 6:17 PM CDT) PT 16.2(H) 12.1 - 14.8 Seconds 05/07/2024 6:43 PM CDT [facility] INR 1.3 See Comment 05/07/2024 6:43 PM CDT [facility] Comment:The suggested therap eutic range for standard coumadin (warfarin) therapy is an INR of 2.0-3.0. For high-risk patients (Mechanical Mitral Valve Prosthesis, etc.), the suggested prophylactic therapeutic range is an INR of 2.5-3.5. Blood BLOOD SPECIMEN / Unknown Venipuncture / Unknown 05/07/2024 6:17 PM CDT 05/07/2024 6:20 PM CDT Leland Webber MD LAB - COAGULATION OR DERABLES [address] [address], [facility] [phone] * LACTIC ACID BLOOD REFLEX TO REPEAT (05/07/2024 6:17 PM CDT) Pathologist [facility] Lactic Acid-Stat 1.2 <=2.0 mmol/L 05/07/2024 6:44 PM CDT [facility] Blood BLOOD SPECIMEN / Unknown Venipuncture / Unknown 05/07/2024 6:17 PM CDT 05/07/2024 6:20 PM CDT Leland Webber MD LAB - CHEMISTRY ORDE RABLES [address] [address], [facility] [phone] * TROPONIN-I HIGH SENSITIVE BASELINE + 1HR (05/07/2024 6:17 PM CDT) Pathologist [facility] Troponin I High Sensitive 8 <=14 ng/L 05/07/2024 6:53 PM CDT [facility] Blood BLOOD SPECIMEN / Unknown Venipuncture / Unknown 05/07/2024 6:17 PM CDT 05/07/2024 6:20 PM CDT Leland Webber MD LAB - CHEMISTRY NIXON MONT[place]A [facility] [address] [place] [address], [place] [phone] * (ABNORMAL) C-REACTIVE PROTEIN (05/07/2024 6:17 PM CDT) C-Reactive Protein 2.5(H) <=0.5 mg/dL 05/07/2024 6:50 PM CDT [facility] Blood BLOOD SPECIMEN / Unknown Venipuncture / Unknown 05/07/2024 6:17 PM CDT 05/07/2024 6:20 PM CDT Leland Webber MD LAB - CHEMISTRY [place] Performing Organization Address City/[facility]/ZIP Co de Phone Number [address] [address], [place] [phone] * ERYTHROCYTE SEDIMENTATION RATE (05/07/2024 6:17 PM CDT) [facility] Erythrocyte Sedimentation Rate [place] 25 0 - 30 MM/HR 05/07/2024 6:29 PM CDT [facility] Blood BLOOD SPECIMEN / Unknown Venipuncture / Unknown 05/07/2024 6:17 PM CDT 05/07/2024 6:20 PM CDT Leland Webber MD LAB - HEMATOLOGY CORINNA SAM [address] [address], [place] [phone] * (ABNORMAL) CBC W AUTO DIFFERENTIAL (05/07/2024 6:17 PM CDT) WBC 12.7(H) 4.0 - 10.7 x10E9/L 05/07/2024 6:24 PM CDT [facility] RBC Count 4.15 3.90 - 5.20 x10E12/L 05/07/2024 6:24 PM [facility] Hemoglobin 12.6 11.9 - 15.8 g/dL 05/07/2024 6:24 PM [facility] Hematocrit 38.2 34.8 - 46.1 % 05/07/2024 6:24 PM [facility] MCV 92.0 80.0 - 98.0 fL 05/07/2024 6:24 PM [facility] MCH 30.4 26.7 - 33.6 pg 05/07/2024 6:24 PM [facility] MCHC 33.0 31.7 - 36.3 g/dL 05/07/2024 6:24 PM [facility] RDW-CV 14.2 11.3 - 14.8 % 05/07/2024 6:24 PM [facility] Platelet Count 374 150 - 420 x10E9/L 05/07/2024 6:24 PM [facility] MPV 10.4 7.8 - 11.4 fL 05/07/2024 6:24 PM [facility] Neutrophil % 75.2(H) 41.0 - 74.0 % 05/07/2024 6:24 PM [facility] Lymphocyte % 13.9(L) 17.0 - 47.0 % 05/07/2024 6:24 PM [facility] Monocyte % 8.8 3.0 - 11.0 % 05/07/2024 6:24 PM [facility] Eosinophil % 1.3 0.0 - 7.0 % 05/07/2024 6:24 PM [facility] Basophil % 0.5 0.0 - 1.6 % 05/07/2024 6:24 PM [facility] Immature Granulocytes % 0.3 0.0 - 1.0 % 05/07/2024 6:24 PM [facility] Neutrophil Absolute 9.56(H) 1.60 - 7.50 x10E9/L 05/07/2024 6:24 PM [facility] Lymphocyte Absolute 1.77 1.00 - 4.40 x10E9/L 05/07/2024 6:24 PM CDT [facility] Monocyte Absolute 1.12(H) 0.15 - 1.00 x10E9/L 05/07/2024 6:24 PM CDT [facility] Eosinophil Absolute 0.17 0.00 - 0.60 x10E9/L 05/07/2024 6:24 PM CDT [facility] Basophil Absolute 0.06 0.00 - 0.13 x10E9/L 05/07/2024 6:24 PM CDT [facility] Blood BLOOD SPECIMEN / Unknown Venipuncture / Unknown 05/07/2024 6:17 PM CDT 05/07/2024 6:20 PM CDT Leland Webber MD LAB - HEMATOLOGY ORD CECY [facility] [address] [place] [address], [facility] [phone] * (ABNORMAL) B-TYPE NATRIURETIC PEPTIDE (05/07/2024 6:17 PM CDT) BNP 262(H) <100 pg/mL 05/07/2024 6:59 PM CDT [facility] Comment: A decision threshold of 100 pg/mL has been demonstrated to provide the maximal combination of sensitivity, specificity and predictive value for the diagnosis of congestive heart failure (CHF). Virtually all patients with no evidence of CHF have BNP values less than 100 pg/mL. A BNP value greater than 100 pg/mL is consistent with the diagnosis of CHF in the appropriate clinical setting. In a study of 693 patients (male and female) with diagnosed CHF, the following values were determined based on the NYHA functional classification system: NYHA Functional Class Mean Valule (pg/mL) % >100 pg/mL I 320 58.1 II 432 73.0 III 656 79.0 IV 1635 98.3 Blood BLOOD SPECIMEN / Unknown Venipuncture / Unknown 05/07/2024 6:17 PM CDT 05/07/2024 6:20 PM CDT Leland Webber MD LAB - CHEMISTRY NIXON MONTILLA [facility] [address] [place] [address], [facility] [phone] * (ABNORMAL) COMPREHENSIVE METABOLIC PANEL (05/07/2024 6:17 PM [facility]) BUN 17 7 - 26 mg/dL 05/07/2024 6:50 PM [facility] Creatinine 0.72 0.56 - 0.96 mg/dL 05/07/2024 6:50 PM [facility] Sodium 142 136 - 145 mmol/L 05/07/2024 6:50 PM [facility] Potassium 3.8 3.5 - 4.5 mmol/L 05/07/2024 6:50 PM [facility] Chloride 104 98 - 107 mmol/L 05/07/2024 6:50 PM [facility] CO2 25 22 - 29 mmol/L 05/07/2024 6:50 PM [facility] Glucose 105 70 - 115 mg/dL 05/07/2024 6:50 PM [facility] Calcium 10.4(H) 8.4 - 10.2 mg/dL 05/07/2024 6:50 PM [facility] Protein Total 6.1 6.0 - 8.3 g/dL 05/07/2024 6:50 PM [facility] Albumin 3.4 3.4 - 5.0 g/dL 05/07/2024 6:50 PM [facility] Bilirubin Total 0.7 0.2 - 1.2 mg/dL 05/07/2024 6:50 PM [facility] Alkaline Phosphatase 92 40 - 150 U/L 05/07/2024 6:50 PM [facility] ALT 20 5 - 55 U/L 05/07/2024 6:50 PM [facility] AST 21 5 - 34 U/L 05/07/2024 6:50 PM [facility] Anion Gap 13 6 - 16 05/07/2024 6:50 PM [facility] BUN/Creatinine Ratio 24(H) 7 - 23 05/07/2024 6:50 PM [facility] Osmolality Calculated 296(H) 275 - 295 mOsm/kg 05/07/2024 6:50 PM CDT [facility] Albumin/Globulin Ratio 1.3 1.1 - 2.3 05/07/2024 6:50 PM CDT [facility] eGFR by CKD-EPI 80(L) >=90 mL/min/1.7 3 m2 05/07/2024 6:50 PM CDT [facility] Blood BLOOD SPECIMEN / Unknown Venipuncture / Unknown 05/07/2024 6:17 PM CDT 05/07/2024 6:20 PM CDT Leland Webber MD LAB - CHEMISTRY ORDE RABLES [address] [address], [place] [phone] * (ABNORMAL) URINE MICROSCOPIC ONLY REFLEX TO CULTURE (05/07/2024 6:04 PM CDT) Reflex Status Culture to follow 05/07/2024 6:19 PM CDT [facility] WBC UA 6-10(A) None Seen, 0-5 /HPF 05/07/2024 6:19 PM CDT [facility] Squamous Epithelial Cells UA 0-2 None Seen, 0-2, 3-5 /HPF 05/07/2024 6:19 PM CDT [facility] Mucus UA 1+ /LPF 05/07/2024 6:19 PM CDT [facility] Urine URINE SPECIMEN OBTAINED BY CLEAN CATCH PROCEDURE / Unknown Collection / Unknown 05/07/2024 6:04 PM CDT 05/07/2024 6:08 PM CDT Narrative [facility] - 05/07/2024 6:19 PM CDT Leland Webber MD LAB - URINALYSIS ORD ERABLES [address] [address], [place] [phone] * (ABNORMAL) URINALYSIS REFLEX MICROSCOPIC REFLEX CULTURE (05/07/2024 6:04 PM CDT) Color UA Yellow Straw, Yellow 05/07/2024 6:16 PM CDT [facility] Clarity UA Slt Cloudy(A) Clear 05/07/2024 6:16 PM CDT [facility] Specific [place] UA 1.015 1.005 - 1.030 05/07/2024 6:16 PM CDT [facility] pH UA 7.0 5.0 - 8.0 pH 05/07/2024 6:16 PM CDT [facility] Protein UA Negative Negative 05/07/2024 6:16 PM CDT [facility] Glucose UA Negative Negative 05/07/2024 6:16 PM CDT [facility] Ketone UA Negative Negative 05/07/2024 6:16 PM CDT [facility] Bilirubin UA Negative Negative 05/07/2024 6:16 PM CDT [facility] Blood UA Negative Negative 05/07/2024 6:16 PM CDT [facility] Nitrite UA Negative Negative 05/07/2024 6:16 PM T [facility] Leukocyte Esterase Trace(A) Negative 05/07/2024 6:16 PM T [facility] Urobilinogen UA Negative Negative mg/dL 05/07/2024 6:16 PM CDT [facility] Urine URINE SPECIMEN OBTAINED BY CLEAN CATCH PROCEDURE / Unknown Collection / Unknown 05/07/2024 6:04 PM CDT 05/07/2024 6:08 PM CDT Narrative [facility] - 05/07/2024 6:16 PM CDT Leland Webber MD LAB - URINALYSIS ORD ERABLES [facility] [address] [place] [phone] [phone] * CULTURE URINE (05/07/2024 6:04 PM CDT) Culture Urine <10,000 CFU/mL urogenital ash GALE 05/09/2024 3:38 AM CDT [facility] Urine URINE SPECIMEN OBTAINED BY CLEAN CATCH PROCEDURE / Unknown Collection / Unknown 05/07/2024 6:04 PM CDT 05/07/2024 6:19 PM CDT Leland Webber MD LAB - MICROBIOLOGY O RDERABLES [facility] [address] [place] [address], [facility] [phone] * (ABNORMAL) CULTURE AEROBIC (10/05/2014 10:55 AM LICENSED PHYSICAL THERAPIST ASSISTANT) Only the most recent of2 resultswithin the time period is included. Culture Aerobic COAG NEG STAPH SPECIES(A) [facility] Comment:Moderate Growth Coag ulase Neg Staph Species Culture Aerobic DIPHTHEROIDS (A) [facility] Comment:Moderate Growth Diph theroids Gram Stain Few Gram positive cocci in pairs [facility] Gram Stain Few Gram Positive bacilli [facility] Nasopharyngeal 10/05/2014 10 :55 AM LICENSED PHYSICAL THERAPIST ASSISTANT 10/05/2014 2:46 PM LICENSED PHYSICAL THERAPIST ASSISTANT Narrative [facility] - 10/07/2014 11:10 AM LICENSED PHYSICAL THERAPIST ASSISTANT AndersonSpecimen#[id number] Kenneth Loc/Rm/Bed: OP SGPREOP// Gram Stains are routinely screened for the presence of Polymorphonuclear Cells. Historical Provider LAB - MICROBIOLOG Y ORDERABLES Performing Organization Address [facility] Co de Phone Number [address] [phone] * CULTURE AEROBIC + GRAM STAIN (05/31/2014 11:25 AM CDT) Culture Aerobic Growth at 24 hours [facility] Comment:Growth of normal res piratory ash. Nasopharyngeal 05/31/2014 11 :25 AM CDT 05/31/2014 1:54 PM CDT Narrative [facility] - 06/02/2014 1:34 PM CDT AndersonSpecimen#[id number] Kenneth Loc/Rm/Bed: OP SGPREOP// Historical Provider LAB - MICROBIOLOG Y ORDERABLES Performing Organization Address [facility] Co de Phone Number [address] [phone] * GRAM STAIN SMEAR (05/31/2014 11:25 AM CDT) Gram Stain Few Polymorphonuclear Cells [facility] Gram Stain Rare Gram positive cocci in pairs [facility] Nasopharyngeal 05/31/2014 11 :25 AM CDT 05/31/2014 1:54 PM CDT Narrative [facility] - 05/31/2014 3:59 PM CDT AndersonSpecimen#[id number] Kenneth Loc/Rm/Bed: OP SGPREOP// Gram Stains are routinely screened for the presence of Polymorphonuclear Cells. Historical Provider LAB - MICROBIOLOG Y ORDERABLES [address] [phone] Care Teams Police Pilot Relationship Specialty Start Date End Date Thomas Christina MD [address] [place] [address] PCP - General 04/10/11
--- OUTSIDE RECORDS SUMMARY | 2025-01-27 10:15 | XMS_ITS | Clinical Summary ---
Author Organization [facility] Address [address] [place] [address] Care Team Providers Care Sustainable Communities Designer Name Role Phone Thomas Christina MD Primary Care Provider [phone] Source Comments [facility],non-owned Affiliates and Associated Physician Practices is amultiple site organization consisting of ambulatory clinics and hospital sitesin [place], [place], [place] and [place]. This disclosure is being madepursuant to the Care Everywhere program and may not contain all information available regarding this patient. Last updated 18.[facility] Allergies No known active allergies Medications * Be aware that medications may not be up to date on this document. Alwaysverify current medications with the patient. Medication Sig Dispensed Refills Start Date End Date Status losartan (Cozaar) 100 MG tablet Take 1 (one) tablet by mouth once daily 03/18/2023 Active hydroCHLOROthiazide (Hydrodiuril) 25 MG tablet Take 1 (one) tablet by mouth once daily 03/19/2024 Active carvedilol (Coreg) 6.25 MG tablet Take 1 (one) tablet by mouth 2 times daily 12/10/2023 Active B Complex Vitamins CAPS Take 1 capsule by mouth once daily Active coenzyme Q10 100 MG capsule Take 100 (one hundred) mg by mouth once daily Active Ascorbic Acid 1000 MG Take 1 (one) tablet by mouth once daily Active Eliquis 5 MG tablet Take 1 (one) tablet by mouth 2 times daily 09/28/2023 Active tamsulosin (Flomax) 0.4 MG capsule Take 1 (one) capsule by mouth once daily for 90 days At the same time every day after a meal. 05/17/2024 Active Active Problems Problem Noted Date Diagnosed Date [...] and heating? Not hard at all 05/14/2024 [facility] [place] [facility] - Occupational Stress [...] place to sleep or slept in a intermediate (including now)? No 05/14/2024 Sex and Gender [...] Mass Index 28.35 05/09/2024 4:49 PM CDT Plan of Treatment Health Maintenance Due Date Last Done Comments BONE DENSITY TESTING 1936 MEDICARE AWV 12 MONTHS 1936 DTAP/TDAP/TD VACCINES (1 - Tdap) 1955 PNEUMOCOCCAL VACCINE 50+ (1 of 1 - PCV) 1986 ZOSTER VACCINE (1 of 2) 1986 Respiratory Syncytial Virus (RSV) Vaccine Pt: or over 60 yrs (1 - 1-dose 75+ series) 2011 COVID-19 VACCINE ( - 2023-2 5 season) 2024 INFLUENZA VACCINE (#1) 2024 2, 09/28/2018 DEPRESSION SCREENING 11/23/2024 HEPATITIS B VACCINE Aged Out No longe r eligible based on patient's age to complete this topic HIB VACCINE Aged Out No longer eligi ble based on patient's age to complete this topic HPV VACCINE Aged Out No longer eligi ble based on patient's age to complete this topic MENINGOCOCCAL (Group B) VACCINE Aged Out No longer eligible b ased on patient's age to complete this topic MENINGOCOCCAL VACCINE Aged Out No beatriz leonel eligible based on patient's age to complete this topic Advance Directives * LIMITED RESUSCITATION-PRIOR AND AFTER ARREST (Latest Code Status on File) Date Activated Date Inactivated Comments 05/07/2024 8:24 PM 05/17/2024 1:47 PM Question Answer Comments Limited Resuscitation: No Chest Compress ionNo Intubation, No Invasive Ventilation Care Teams Sustainable Communities Designer Relationship Specialty Start Date End Date Thomas Christina MD [address] [place] [id number] PCP - General 04/10/11
--- OUTSIDE RECORDS SUMMARY | 2025-01-27 10:15 | XMS_ITS | Clinical Summary ---
Author Organization [facility] Mandy matos Phyllis Address [address] [place] [address] Care Team Providers Care Captain Assistant Name Role Phone Unavailable Primary Care Provider Unavailabl e Allergies Active Allergy Reactions Criticality Noted Date Comments Oxycodone Itching Low 01/16/2025 Medications Eliquis 5 mg tablet Take 5 mg by mouth 2 times daily. 09/19/2024 Active losartan (COZAAR) 100 mg tablet Take 100 mg by mouth daily. 03/18/2023 Active carvediloL (COREG) 6.25 mg tablet Take 1 Tablet by mouth 2 times daily with meals. 12/21/2024 Active hydroCHLOROthia zide 25 mg tablet Take 25 mg by mouth daily. Active VITAMIN B COMPLEX ORAL Take 1 Capsule by mouth daily. Active coenzyme Q10 100 mg Capsule Take 100 mg by mouth daily. Active Magnesium 200 mg Tablet Take 200 mg by mouth daily. Active ascorbic acid, vitamin C, (VITAMIN C) 1,000 mg Tablet Take 1,000 mg by mouth daily. Active Active Problems No known active problems Encounters Date Type Department Care Team Description 01/17/2025 External Device Data STL ABSTRACTION Provider, Abstract 01/17/2025 External Device Data STL ABSTRACTION Provider, Abstract 01/17/2025 External Device Data STL ABSTRACTION Provider, Abstract 01/16/2025 3:00 PM COMMERCIAL LAWN SPECIALIST Office Visit [facility] Oncology and Hematology - Kenneth [address] [place] [address] Edmond Adame MD Acute deep vein thrombosis (DVT) of proximal vein of left lower extremity (CMS/HCC) (Primary Dx); Pancreatic cyst from Last 3 Months Family History Medical History Relation Name Comments No Known Problems Brother No Known Problems Child 1 No Known Problems Child 2 No Known Problems Child 3 No Known Problems Child 4 Pancreatic Cancer Child 5 No Known Problems Father Heart Attack Mother Relation Name Status Comments Brother Child 1 Alive Child 2 Alive Child 3 Alive Child 4 Alive Child 5 Father Mother Social History Tobacco Use Types Packs/Day Years Used Date Smoking Tobacco: Never Smokeless Tobacco: Never Alcohol Use Standard Drinks/Week Comments Never 0 (1 standard drink = 0.6 oz pur e alcohol) Comments Unknown Sex and Gender Information Value Date Recorded Sex Assigned at Not on file Legal Sex Female 10:17 AM COMMERCIAL LAWN SPECIALIST Gender Identity Not on file Sexual Orientation Not on file Last Filed Vital Signs Vital Sign Reading Time Taken Comments Blood Pressure 168/94 01/16/2025 3:12 PM COMMERCIAL LAWN SPECIALIST Pulse 75 01/16/2025 3:07 PM COMMERCIAL LAWN SPECIALIST Temperature 36.4 C (97.5 F) 01/16/2025 3:07 PM COMMERCIAL LAWN SPECIALIST Respiratory Rate 15 01/16/2025 3:07 PM COMMERCIAL LAWN SPECIALIST Oxygen Saturation 97% 01/16/2025 3:07 PM COMMERCIAL LAWN SPECIALIST Inhaled Oxygen Concentration - - Weight 73.4 kg (161 lb 12.8 oz) 01/16/2025 3:07 PM COMMERCIAL LAWN SPECIALIST Height 160 cm (5' 3 ) 01/16/2025 3:07 PM COMMERCIAL LAWN SPECIALIST Body Mass Index 28.66 01/16/2025 3:07 PM COMMERCIAL LAWN SPECIALIST Plan of Treatment Upcoming Encounters Date Type Department Care Team (Late st Contact Info) Description 01/30/2025 4:30 PM CDT Telephone Check Up [facility] Oncology and Hematology - Kenneth [address] [facility] [address] [place] [address] Edmond Admae MD [address] [facility] [address] [place] [address] Health Maintenance Due Date Last Done Comments DTAP/TDAP/TD VACCINES (1 - Tdap) 1954 Traditional Medicare (ACO) Annual Wellness Visit 05/05 PNEUMOCOCCAL VACCINE 50+ YEARS (1 of 1 - PCV) 05/05/19 86 ZOSTER VACCINE (1 of 2) 1986 OSTEOPOROSIS SCREENING 2001 RSV VACCINE (60+ or ) (1 - 1-dose 75+ series) 2011 INFLUENZA VACCINE (#1) 2024 Insurance MEDICARE PART A AND B [facility]
--- OUTSIDE RECORDS SUMMARY | 2025-01-27 10:15 | XMS_ITS | Referral Summary ---
Author Organization [email or web address] Address [address] [place] [address] Care Team Providers Care Pamphlet Distributor Name Role Phone Thomas Christina MD Primary Care Provider [phone] Source Comments [email or web address],non-owned Affiliates and Associated Physician Practices is amultiple site organization consisting of ambulatory clinics and hospital sitesin [place], [place], [place] and [place]. This disclosure is being madepursuant to the Care Everywhere program and may not contain all information available regarding this patient. Last updated 18.[email or web address] Allergies No known active allergies Medications * [...] and heating? Not hard at all 05/14/2024 [facility] Occupat ional Health - Occupational Stress [...] place to sleep or slept in a skilled nursing (including now)? No 05/14/2024 Sex and Gender [...] Mass Index 28.35 05/09/2024 4:49 PM CDT Functional Status Functional Status Response Date of Assess ment Is person deaf or have serious hearing difficult y? No 05/14/2024 Is person blind or have serious difficulty seein g? No 05/14/2024 Does person have serious dif ficulty walking/climbing stairs? Yes 05/14/2024 Does person have difficulty dressing/bathing? Ye s 05/14/2024 Does person have difficulty doing errands alone? Yes 05/14/2024 Cognitive Status Response Date of Assessm ent Does person have difficulty concentrating/remembering/making decisions? No 05/14/2024 Plan of Treatment Not on file Advance Directives * LIMITED RESUSCITATION-PRIOR AND AFTER ARREST (Latest Code Status on File) Date Activated Date Inactivated Comments 05/07/2024 8:24 PM 05/17/2024 1:47 PM Question Answer Comments Limited Resuscitation: No Chest Compress ionNo Intubation, No Invasive Ventilation Care Teams Pamphlet Distributor Relationship Specialty Start Date End Date Thomas Christina MD [address] [place] [address] [phone] PCP - General 04/10/11
--- OUTSIDE RECORDS SUMMARY | 2025-01-27 10:15 | XMS_ITS | Clinical Summary ---
Author Organization [facility] [address] Address [address] [place] [address] Care Team Providers Care Terrazzo Finisher Name Role Phone Delma Whitmore NP Primary Care Provider [phone] Allergies Active Allergy Reactions Criticality Noted Date Comments Hydrocodone Oxycodone Medications losartan (COZAAR) 100 mg tablet Take 1 tablet (100 mg total) by mouth daily 03/18/2023 Active multivit-minera ls/folic acid (CENTRUM ADULT 50 PLUS ORAL) Take by mouth Active coenzyme Q10 100 mg capsule Take 1 capsule (100 mg total) by mouth daily Active magnesium gluconate 200 mg tabletIndicatio ns:hypomagnesem ia 1 tablet (200 mg total) Active vitamin B complex capsule Take 1 capsule by mouth daily Active ascorbic acid (vitamin C) 1,000 mg tablet Take 1 tablet (1,000 mg total) by mouth daily Active hydroCHLOROthia zide (HYDRODIURIL) 25 mg tablet Take 1 tablet (25 mg total) by mouth daily 03/19/2024 Active apixaban (Eliquis) 5 mg tablet Take 1 tablet by mouth twice daily 180 tablet 2 09/19/2024 Active carvediloL (COREG) 6.25 mg tablet TAKE 1 TABLET BY MOUTH TWICE DAILY WITH MEALS 180 tablet 2 12/21/2024 Active Active Problems Problem Noted Date Diagnosed Date DVT (deep venous thrombosis) 04/29/2024 Atrial fibrillation 05/15/2023 Chronic anticoagulation 05/15/2023 Essential hypertension 10/17/2014 Overview (02/27/2017): Essential hypertension Resolved Problems Problem Noted Date Diagnosed Date Resolved Date 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 05/15/20 Medical History Medical History Date Comments Hx Other Medical HTN, obese, sin usitis, remote history of anemia, o; [place] [facility] [place] - Hx Other Medical right total kne e replacement, left shoulder surger; Comments[place] [facility] [place] - Chronic kidney disease Social History Tobacco Use Types Packs/Day Years Used Date Smoking Tobacco: Never Tobacco Cessation:Counseling Given: Not Answered Alcohol Use Standard Drinks/Week Comments No 0 (1 standard drink = 0.6 oz pur e alcohol) Comments Unknown Sex and Gender Information Value Date Recorded Sex Assigned at Not on file Legal Sex Female 3:29 AM LIQUID NATURAL GAS PLANT OPERATOR Gender Identity Not on file Sexual Orientation Not on file Obstetrics History Last Filed Vital Signs Vital Sign Reading Time Taken Comments Blood Pressure 140/70 10/28/2024 11:49 AM LIQUID NATURAL GAS PLANT OPERATOR Pulse 80 10/28/2024 11:49 AM LIQUID NATURAL GAS PLANT OPERATOR Temperature - - Respiratory Rate - - Oxygen Saturation 95% 10/28/2024 11:29 AM LIQUID NATURAL GAS PLANT OPERATOR Inhaled Oxygen Concentration - - Weight 71.2 kg (157 lb) 10/28/2024 11:29 AM LIQUID NATURAL GAS PLANT OPERATOR Height 160 cm (5' 3 ) 10/28/2024 11:29 AM LIQUID NATURAL GAS PLANT OPERATOR Body Mass Index 27.81 10/28/2024 11:29 AM LIQUID NATURAL GAS PLANT OPERATOR Plan of Treatment Health Maintenance Due Date Last Done Comments Depression Screening 1936 Fall Risk Assessment 1936 DTaP/Tdap/Td Vaccine (1 - Tdap) 1947 Hepatitis B Screening 1954 Zoster Vaccine (1 of 2) 1986 Well Visit 65+ 2001 Pneumococcal vaccine 65+ (2 of 2 - PPSV23) 12/11/2018 12/11/2017 Influenza Vaccine (#1) 2024 09/22/2022, 2017 Insurance [id number] [place] [address] MEDICARE [address] [place] [address] MEDICARE [facility]UAL [facility] Care Teams Terrazzo Finisher Relationship Specialty Start Date End Date Delma Whitmore NP [address] [place] [address] PCP - General Nurse Practitioner 10/27/23
--- OUTSIDE RECORDS SUMMARY | 2025-01-27 10:15 | XMS_ITS | Continuity of Care Document ---
Author Name Auto Generated, Auto Generated Organization [facility] Support Name Relationship Address Phone Brandonjosué Abdi Emergency Contact 1 Unknown [phone] AlethealubnaAbdi lima Son Unknown Linda Smith Daughter Unknown Unavailable Madison Araiza Daughter Unknown Unavailable Martha Zayas Daughter Unknown Unavailabl e Sophia Norman Financial Responsi ble Libertarian [address] [place] [address] Sophia Norman Self [address] [place] [address] AletheaAbdi madrid [facility] Unknown [phone] Linda Smith Emergency Contact 2 Unknown Unavaila ble Madison Araiza Emergency Contact 3 Unknown Unavai lable Emerson, Nellie Piofhkce-az-Tqt Unknown Unavai lable Summary Purpose Consult/Referral Allergies, Adverse Reactions, Alerts Type Description/Agent Code Date Allergy Active Date Allergy Inactivated Date of Last Reaction Adverse Reactions Severity Status Comments Source of Information [employer] No Known Allergies Active Patient History Medications No Known Medications Conditions/Problems Problem/Diagnosis Awareness of Diagnosis Code (ICD-10) Onset Date (Start Date) Resolution Date (End Date) Status Source Comments ACUTE POSTHEMORRHAGIC ANEMIA D62 05/24/20 24 Active Quyen nevarez MD [facility] ABNORMAL RESULTS OF LIVER FUNCTION STUDIES R94.5 05/17/20 24 Active Quyen nevarez MD [facility] ANEMIA, UNSPECIFIED D64.9 05/17/20 24 06/06/2024 Resolved Quyen nevarez MD [facility] ESSENTIAL (PRIMARY) HYPERTENSION I10 05/17/20 24 06/06/2024 Resolved Quyen nevarez MD [facility] PAROXYSMAL ATRIAL FIBRILLATION I48.0 05/17/20 Active Quyen nevarez MD [facility] (CURRENT) USE OF ANTICOAGULANTS Z79.01 05/17/20 Active Quyen nevarez MD [facility] RESISTANT HYPERTENSION I1A.0 05/17/20 Active Quyen nevarez MD [facility] 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
--- OUTSIDE RECORDS SUMMARY | 2025-01-27 10:15 | XMS_ITS | Continuity of Care Document ---
Author Organization [facility] Address [address] [place] [address] Phone Care Team Providers Care Monument Letterer Name Role Phone Keith Del Rosario Unavailable Unavailable Advance Directives Directive Yes / No Effective Date File Name No Information Encounters Encounter Description Practice Location Reason(s) For Visit Diagnoses Date Provider Providers Copied on Encounter [facility], [address], [place], [place], [id number], [place] tel:[phone] [facility] No Information [phone] Doisy Edward. [address] , [address], [place], [address], [place]. tel:[phone] Referring Provider: Timi Chaves, [address] [facility], [place], [address]. tel:[phone] Family History Family Member Type Diagnosis Age At Onset No Information Payers Payer name Insurance type Covered constitution party ID Authoriza tion(s) No Information Social History Type Description Quantity Date Captured Comments Sex Female Smoking Status No Information Chief Complaint And Reason For Visit No Information Reason For Referral Reason For Referral No Information History Of Present Illness Encounter Date Complaint History Of Prese nt Illness No Information Functional Status Date Functional Assessmen t No Information Instructions Date Instruction Additional Infor mation No Information Assessments Type Assessment Date No Information Patient Care Teams Name Effective Dates (start - stop) Status Members No Information
--- OUTSIDE RECORDS SUMMARY | 2025-01-27 10:15 | XMS_ITS | Referral Summary ---
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 05/15/20 Social History Tobacco Use Types Packs/Day Years Used Date Smoking Tobacco: Never Tobacco Cessation:Counseling Given: Not Answered Alcohol Use Standard Drinks/Week Comments No 0 (1 standard drink = 0.6 oz pur e alcohol) Comments Unknown Sex and Gender Information Value Date Recorded Sex Assigned at Not on file Legal Sex Female 3:29 AM SALES CONSULTANT RESIDENTIAL MANAGER Gender Identity Not on file Sexual Orientation Not on file Last Filed Vital Signs Vital Sign Reading Time Taken Comments Blood Pressure 140/70 10/28/2024 11:49 AM SALES CONSULTANT RESIDENTIAL MANAGER Pulse 80 10/28/2024 11:49 AM SALES CONSULTANT RESIDENTIAL MANAGER Temperature - - Respiratory Rate - - Oxygen Saturation 95% 10/28/2024 11:29 AM SALES CONSULTANT RESIDENTIAL MANAGER Inhaled Oxygen Concentration - - Weight 71.2 kg (157 lb) 10/28/2024 11:29 AM SALES CONSULTANT RESIDENTIAL MANAGER Height 160 cm (5' 3 ) 10/28/2024 11:29 AM SALES CONSULTANT RESIDENTIAL MANAGER Body Mass Index 27.81 10/28/2024 11:29 AM SALES CONSULTANT RESIDENTIAL MANAGER Plan of Treatment Not on file Insurance [address] [place], [place] [id number] MEDICARE [address] [place] [id number] MEDICARE [facility] [place] [address] Care Teams Ornament Stitcher Relationship Specialty Start Date End Date Delma Whitmore NP [address] [place] [address] PCP - General Nurse Practitioner 10/27/23
[2025-01-27 10:23] LABS: Estimated Glomerular Filt Rate > 60
== END 2025-01-27 09:36 | disposition home or self-care (01) ==
PROVIDERS: PCP Nurse Practitioner Family; Visit Provider Internal Medicine Hematology & Oncology
DX: I82.4Y2 Acute embolism and thrombosis of unspecified deep veins of left proximal lower extremity (principal); N20.0 Calculus of kidney; K44.9 Diaphragmatic hernia without obstruction or gangrene
CPT/HCPCS: 74177; 93971; Q9967

== ENCOUNTER 2025-04-28 15:50 | Outpatient (CLI) | payer MEDICARE, SELFPAY ==
--- NOTE | ~2025-04-28 | US_ITS ---
Thyroid ultrasound. Clinical History: Hypertension Findings: Real-time sonography of the thyroid gland was performed. The right lobe measures 5.1 x 1.9 x 1.9 cm. The left lobe measures 5.3 x 1.7 x 1.8 cm. The isthmus is 3 mm in AP diameter. There is a 1.7 x 1.4 x 1.5 cm spongiform nodule the right midpole. There is a 1.7 x 1.0 x 1.8 cm some what heterogeneous, probably isoechoic nodule at the right lower pole. There is a 1.6 x 1.0 x 1.6 cm hypoechoic somewhat heterogeneous nodule at the left lower pole. There is a 1.1 x 1.0 x 0.7 cm probable spongiform nodule at the left mid to lower pole. There is an additio nal 1.0 cm mixed solid and cystic nodule at the left mid to upper pole. Impression: Multiple thyroid nodules, as detailed above, most likely multinodular goiter. Consider FNA of the 1.6 hypoechoic nodule at the left lower pole. Otherwise annual follow-up advised. Reviewed, dictated and finalized at location M. Impression: Multiple thyroid nodules, as detailed above, most likely multinodular goiter. C onsider FNA of the 1.6 hypoechoic nodule at the left lower pole. Otherwise sb al follow-up advised.
--- OUTSIDE RECORDS SUMMARY | 2025-04-28 15:56 | XMS_ITS | Referral Summary ---
Author Organization [facility] [place] [address] Address [address] [place] [address] Care Team Providers Care Embroiderer Hand Name Role Phone Delma Whitmore NP Primary Care Provider [phone] Encounters Date Type Department Care Team Description 02/08/2025 9:57 AM CDT - 02/08/2025 4:29 PM CDT Emergency [facility] [address] [place] [address] Fall, initial encounter (Primary Dx); Head injury, initial encounter Discharge Disposition: Discharge to fpc facility from Last 3 Months Allergies Active Allergy Reactions Criticality Noted Date [...] drink = 0.6 oz pur e alcohol) Personal Safety Answer Date Recorded Have you ever been in or are you currently in a harmful physical or emotional relationship or is someone making you feel afraid or unsafe? Denies 02/08/2025 Comments Unknown Sex and Gender Information Value Date Recorded Sex Assigned at Not on file Legal Sex Female 3:29 AM [employer] Gender Identity Not on file Sexual Orientation Not on file Last Filed Vital Signs Vital Sign Reading Time Taken Comments Blood Pressure 168/92 02/08/2025 4:20 PM CDT Pulse 81 02/08/2025 4:20 PM CDT Temperature 36.7 C (98 F) 02/08/2025 10:01 AM CDT Respiratory Rate 18 02/08/2025 4:20 PM CDT Oxygen Saturation 98% 02/08/2025 4:20 PM CDT Inhaled Oxygen Concentration - - Weight 74 kg (163 lb 2.3 oz) 02/08/2025 10:01 AM CDT Height 160 cm (5' 3) 02/08/2025 10:01 AM CDT Body Mass Index 28.9 02/08/2025 10:01 AM CDT Plan of Treatment Not on file Procedures Procedure Name Priority Date/Time Associated Diagnosis Comments CT HIP LEFT WO CONTRAST ED 02/08/2025 2:24 PM CDT XR HIP LEFT 2 OR 3 VIEWS ED 02/08/2025 12:[address] CHEST ABDOMEN PELVIS WO CONTRAST ED 02/08/2025 10:[address] CERVICAL SPINE WO CONTRAST ED 02/08/2025 10:[address] HEAD WO CONTRAST ED 02/08/2025 1 0:36 AM CDT EGFR STAT 02/08/2025 10:13 AM CDT DIFFERENTIAL AUTO STAT 02/08/2025 10: 13 AM CDT PROTIME-INR STAT 02/08/2025 10:13 AM CDT APTT STAT 02/08/2025 10:13 AM CDT COMPREHENSIVE METABOLIC PANEL STAT 02/08/2025 10:13 AM CDT CBC WITH AUTO DIFFERENTIAL STAT 02/08/2025 10:13 AM CDT ECG 12-LEAD STAT 02/08/2025 10:09 AM CDT from Last 3 Months Results * CT Hip Left WO Contrast (02/08/2025 2:24 PM CDT) Anatomical Region Laterality Modality Lower Extremities Left Computed Tomog janice 02/08/2025 3:07 PM CDT Narrative 02/08/2025 3:12 PM CDT EXAM DESCRIPTION: CT HIP LEFT WO CONTRAST REASON FOR STUDY: Hip trauma, fracture suspected, xray done Pt came into ED from [facility] assisted living with c/o fall this AM. Per pt, states was getting out of shower and slipped on wet floor causing her to fall backwards and hit her head. Hematoma noted to L posterior upper head, no LOC/no dizziness/FONSECA. Pt denies upper back/neck pain. A/Ox4. Pt takes eliquis for hx Afib. TECHNIQUE: CT scan of the left hip was performed without intravenous contrast. Reconstructed coronal and sagittal MPR images reviewed. Automated exposure control was used as a dose optimization technique for this examination. COMPARISON: X-rays left hip this same day, 02/08/2025. No older exams. FINDINGS: Patient demonstrates artifact as result of prior total left hip arthroplasty. No evidence of a periprosthetic fracture. Prosthesis appears intact with no evidence of loosening or complication. There is heterotopic ossification seen lateral to the greater trochanteric region and superior to the greater trochanteric region. The finding on comparison plain film is favored to reflect the heterotopic ossification. Trivial enthesophyte formation. There is no acute fracture. Adjacent soft tissues demonstrate no focal fluid collection. No prominent hematoma. No adenopathy by size criteria. Limited view of the left hemipelvis demonstrates diverticuli of the sigmoid colon with no acute diverticulitis. Limited view. IMPRESSION: No acute fracture. Total left hip arthroplasty with no evidence of complication. There is heterotopic ossification seen lateral to the greater trochanteric region and superior to the greater trochanteric region. The finding on comparison plain film is favored to reflect the heterotopic ossification. No discrete fracture is seen. There is no evidence of loosening of hardware or periprosthetic fracture. THIS IS AN ELECTRONICALLY VERIFIED FINAL REPORT 02/08/2025 3:12 PM - Electronically signed by Tavares Cervantes M.D. MJ: MICHAEL Report ID: [id number] Reading Location: [place] [id number] Procedure Note Tavares Cervantes MD - 02/08/2025 EXAM DESCRIPTION: CT HIP LEFT WO CONTRAST REASON FOR STUDY: Hip trauma, fracture suspected, xray done Pt came into ED from [facility] assisted living with c/o fall thisAM. Per pt, states was getting out of shower and slipped on wet floor causingher to fall backwards and hit her head. Hematoma noted to L posterior upperhead, no LOC/no dizziness/FONSECA. Pt denies upper back/neck pain. A/Ox4. Pttakes eliquis for hx Afib. TECHNIQUE: CT scan of the left hip was performed without intravenous contrast. Reconstructed coronal and sagittal MPR images reviewed.Automated exposure control was used as a dose optimization technique for this examination. COMPARISON: X-rays left hip this same day, 02/08/2025. No older exams. FINDINGS: Patient demonstrates artifact as result of prior total left hip arthroplasty. No evidence of a periprosthetic fracture. Prosthesisappears intact with no evidence of loosening or complication. There is heterotopic ossification seen lateral to the greater trochanteric region and superior to the greater trochanteric region. The finding on comparison plain film is favored to reflect the heterotopic ossification. Trivial enthesophyte formation. There is no acute fracture. Adjacent soft tissues demonstrate no focal fluid collection. No prominent hematoma. No adenopathy by size criteria. Limited view of the left hemipelvis demonstrates diverticuli of thesigmoid colon with no acute diverticulitis. Limited view. IMPRESSION: No acute fracture. Total left hip arthroplasty with no evidence of complication. There is heterotopic ossification seen lateral to the greatertrochanteric region and superior to the greater trochanteric region. The finding on comparison plain film is favored to reflect the heterotopic ossification.No discrete fracture is seen. There is no evidence of loosening of hardwareor periprosthetic fracture. THIS IS AN ELECTRONICALLY VERIFIED FINAL REPORT 02/08/2025 3:12 PM - Electronically signed by Tavares Cervantes M.D. MJ: MICHAEL Report ID: [id number] Reading Location: [id number] [facility] IM[facility] CT PROCEDURES Final Result * XR Hip Left 2 or 3 Views (02/08/2025 12:14 PM CDT) Anatomical Region Laterality Modality Lower Extremities, Hip, Pelvis Left C omputed Radiography 02/08/2025 1:16 PM CDT Narrative 02/08/2025 1:25 PM CDT EXAM DESCRIPTION: XR HIP LEFT 2 OR 3 VIEWS REASON FOR STUDY: accidental fall Per pt, states was getting out of shower this morning and slipped on wet floor causing her to fall backwards and hit her head. Hematoma noted to L posterior upper thigh. TECHNIQUE: 2 radiographic view(s) of the left hip . COMPARISON: CT same day FINDINGS: BONES/JOINTS: Redemonstration of left total hip arthroplasty components. Hardware components are in near anatomic alignment. No definitive evidence of hardware complication. There are a few heterotopic calcifications noted superior to the greater trochanter. These are chronic in appearance. Along the lateral margin of the greater tuberosity, there is a more linear fragment on the AP view, which is technically age indeterminate. SOFT TISSUES: There is no focal soft tissue abnormality within the limitations of this examination. IMPRESSION: Left total hip arthroplasty components in near anatomic alignment. No definite hardware complication. Linear osseous fragment along the lateral margin of the greater trochanter, technically age indeterminate. Comparison with prior radiographs recommended to assess for stability. CT of the hip can be performed for further evaluation as warranted clinically. THIS IS AN ELECTRONICALLY VERIFIED FINAL REPORT 02/08/2025 1:25 PM - Electronically signed by Akosua Pozo M.D. TW: DIXIE Report ID: [id number] Reading Location: [id number] Procedure Note Akosua Pozo MD - 02/08/2025 EXAM DESCRIPTION: XR HIP LEFT 2 OR 3 VIEWS REASON FOR STUDY: accidental fall Per pt, states was getting out of shower this morning and slipped on wetfloor causing her to fall backwards and hit her head. Hematoma noted to Lposterior upper thigh. TECHNIQUE: 2 radiographic view(s) of the left hip . COMPARISON: CT same day FINDINGS: BONES/JOINTS: Redemonstration of left total hip arthroplasty components. Hardware components are in near anatomic alignment. No definitive evidence of hardware complication. There are a few heterotopic calcifications noted superior to the greater trochanter. These arechronic in appearance. Along the lateral margin of the greater tuberosity, there mile more linear fragment on the AP view, which is technically ageindeterminate. SOFT TISSUES: There is no focal soft tissue abnormality within thelimitations of this examination. IMPRESSION: Left total hip arthroplasty components in near anatomicalignment. No definite hardware complication. Linear osseous fragment along the lateral margin of the greatertrochanter, technically age indeterminate. Comparison with prior radiographsrecommended to assess for stability. CT of the hip can be performed for further evaluation as warranted clinically. THIS IS AN ELECTRONICALLY VERIFIED FINAL REPORT 02/08/2025 1:25 PM - Electronically signed by Akosua Pozo M.D. TW: DIXIE Report ID: [id number] Reading Location: [place] [address] [address] [facility] IMG XR PROCEDURES Final Result * CT Chest Abdomen Pelvis WO Contrast (02/08/2025 10:36 AM CDT) Anatomical Region Laterality Modality Body N/A Computed Tomogra phy 02/08/2025 11:4 4 AM CDT Narrative 02/08/2025 11:58 AM CDT EXAM DESCRIPTION: CT CHEST ABDOMEN PELVIS WO CONTRAST REASON FOR STUDY: Polytrauma, blunt Pt came into ED from [facility] assisted living with c/o fall this AM. Per pt, states was getting out of shower and slipped on wet floor causing her to fall backwards and hit her head. Hematoma noted to L posterior upper head, no LOC/no dizziness/FONSECA. Pt denies upper back/neck pain. A/Ox4. Pt takes eliquis for hx Afib. TECHNIQUE: CT scan of the chest, abdomen, and pelvis performed without intravenous and without oral contrast using helical scanning technique. Reconstructed coronal and sagittal MPR images reviewed. All images stored on PACS. Automated exposure control was used as a dose optimization technique for this examination. COMPARISON: None FINDINGS: The sensitivity for detection of visceral lesions is diminished without the use of intravenous contrast. CHEST LUNGS: No suspicious nodules or masses. An 8 mm calcified granuloma is seen in the left lower lobe. No pneumonia. PLEURA: No effusion. No pneumothorax. MEDIASTINUM/CARRIE: No identified masses or abnormal nodes. HEART: There has no pericardial effusion. CORONARY ARTERY CALCIFICATION: Present VASCULATURE CHEST: No thoracic aortic aneurysm. AXILLA: No adenopathy. CHEST WALL: No masses. No subcutaneous air. HARDWARE/LINES/TUBES: None. MUSCULOSKELETAL CHEST: No significant abnormality. ABDOMEN/PELVIS LIVER: There is no laceration or subcapsular hematoma. GALLBLADDER: Surgically absent. BILE DUCTS: No intrahepatic or extrahepatic ductal dilatation. SPLEEN: No laceration or subcapsular hematoma. PANCREAS: No identified cystic or solid masses. No significant calcifications. No adjacent inflammation or peripancreatic fluid collections. Pancreatic duct not dilated. ADRENALS: Normal. KIDNEYS/URINARY TRACT: No obvious mass or hydronephrosis was seen. Multiple peripelvic cysts on the left simulate hydronephrosis. Benign cysts range in size up to about 5.5 cm. Multiple calcifications probably represent a combination of calculi and vascular calcifications. 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 Urinary bladder is unremarkable. GI: No bowel obstruction or inflammatory bowel disease was seen. Multiple diverticuli are seen in the sigmoid colon. There is no diverticulitis. PERITONEUM: No ascites or free air. RETROPERITONEUM: No mass or adenopathy. REPRODUCTIVE: No significant abnormality. VASCULATURE ABDOMEN: No abdominal aortic aneurysm. MUSCULOSKELETAL ABDOMEN PELVIS: No acute finding. OTHER: No significant abnormality. IMPRESSION: 1. No evidence of significant intra-abdominal injury 2. No evidence of significant thoracic injury. THIS IS AN ELECTRONICALLY VERIFIED FINAL REPORT 02/08/2025 11:58 AM - Electronically signed by Marcos Carvalho M.D. ELISSA: ELISSA Report ID: [id number] Reading Location: [id number] Procedure Note Segundo Carvalho MD - 02/08/2025 EXAM DESCRIPTION: CT CHEST ABDOMEN PELVIS WO CONTRAST REASON FOR STUDY: Polytrauma, blunt Pt came into ED from [facility] assisted living with c/o fall thisAM. Per pt, states was getting out of shower and slipped on wet floor causingher to fall backwards and hit her head. Hematoma noted to L posterior upperhead, no LOC/no dizziness/FONSECA. Pt denies upper back/neck pain. A/Ox4. Pttakes eliquis for hx Afib. TECHNIQUE: CT scan of the chest, abdomen, and pelvis performed without intravenous and without oral contrast using helical scanning technique. Reconstructed coronal and sagittal MPR images reviewed. All images storedon PACS. Automated exposure control was used as a dose optimizationtechnique for this examination. COMPARISON: None FINDINGS: The sensitivity for detection of visceral lesions is diminished without the use of intravenous contrast. CHEST LUNGS: No suspicious nodules or masses. An 8 mm calcified granuloma isseen in the left lower lobe. No pneumonia. PLEURA: No effusion. No pneumothorax. MEDIASTINUM/CARRIE: No identified masses or abnormal nodes. HEART: There has no pericardial effusion. CORONARY ARTERY CALCIFICATION: Present VASCULATURE CHEST: No thoracic aortic aneurysm. AXILLA: No adenopathy. CHEST WALL: No masses. No subcutaneous air. HARDWARE/LINES/TUBES: None. MUSCULOSKELETAL CHEST: No significant abnormality. ABDOMEN/PELVIS LIVER: There is no laceration or subcapsular hematoma. GALLBLADDER: Surgically absent. BILE DUCTS: No intrahepatic or extrahepatic ductal dilatation. SPLEEN: No laceration or subcapsular hematoma. PANCREAS: No identified cystic or solid masses. No significant calcifications. No adjacent inflammation or peripancreatic fluidcollections. Pancreatic duct not dilated. ADRENALS: Normal. KIDNEYS/URINARY TRACT: No obvious mass or hydronephrosis was seen.Multiple peripelvic cysts on the left simulate hydronephrosis. Benign cysts rangein size up to about 5.5 cm. Multiple calcifications probably represent a combination of calculi and vascular calcifications. 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 Urinary bladder is unremarkable. GI: No bowel obstruction or inflammatory bowel disease was seen.Multiple diverticuli are seen in the sigmoid colon. There is no diverticulitis. PERITONEUM: No ascites or free air. RETROPERITONEUM: No mass or adenopathy. REPRODUCTIVE: No significant abnormality. VASCULATURE ABDOMEN: No abdominal aortic aneurysm. MUSCULOSKELETAL ABDOMEN PELVIS: No acute finding. OTHER: No significant abnormality. IMPRESSION: 1. No evidence of significant intra-abdominal injury 2. No evidence of significant thoracic injury. THIS IS AN ELECTRONICALLY VERIFIED FINAL REPORT 02/08/2025 11:58 AM - Electronically signed by Marcos Carvalho M.D. ELISSA: ELISSA Report ID: [id number] Reading Location: [id number] [facility] MAN IMTong CT PROCEDURES Final Result * CT Cervical Spine WO Contrast (02/08/2025 10:36 AM CDT) Anatomical Region Laterality Modality Spine N/A Computed Tomogra phy 02/08/2025 11:3 4 AM CDT Narrative 02/08/2025 11:44 AM CDT EXAM DESCRIPTION: CT HEAD WO CONTRAST; CT CERVICAL SPINE WO CONTRAST REASON FOR STUDY: Polytrauma, blunt Pt came into ED from [facility] assisted living with c/o fall this AM. Per pt, states was getting out of shower and slipped on wet floor causing her to fall backwards and hit her head. Hematoma noted to L posterior upper head, no LOC/no dizziness/FONSECA. Pt denies upper back/neck pain. A/Ox4. Pt takes eliquis for hx Afib. TECHNIQUE: Axial images acquired through the brain without intravenous contrast. Axial images through the cervical spine with sagittal and coronal reformatted images. Images stored on PACS. Automated exposure control was used as a dose optimization technique for this examination. COMPARISON: None FINDINGS: HEAD BRAIN: No hemorrhage, edema or mass effect. No recent infarct. The ventricular system and subarachnoid spaces are slightly enlarged. EXTRA-AXIAL SPACES: No fluid collections. No masses. CALVARIUM: No fracture. A 1.5 cm subcutaneous nodule is seen in the left frontal region. SINUSES/MASTOIDS: No fluid or mucosal thickening. ORBITS: No significant abnormality. CERVICAL SPINE ALIGNMENT: Normal. VERTEBRAE: No fracture. Vertebral body heights well-maintained. DISCS: Disc space narrowing is seen at C4-5 and C7-T1. HARDWARE: None in the spine. INDIVIDUAL DISC LEVELS: There is mild foraminal narrowing at C5-6. There may be mild central acquired spinal stenosis at this level due to diffuse disc bulging UPPER THORACIC: Incompletely imaged. No significant osseous spinal stenosis or osseous neural foraminal stenosis. LUNG APICES: No significant abnormality. NECK SOFT TISSUES: No significant abnormality. OTHER: No other significant findings. IMPRESSION: 1.5 cm subcutaneous nodule in the left frontal region. Whether this is due to a hematoma or other entity is unknown. Correlation with the physical exam is recommended. No acute intracranial findings. No cervical spine fracture. Spondylosis is seen. There is possible mild central acquired spinal stenosis at C5-6. THIS IS AN ELECTRONICALLY VERIFIED FINAL REPORT 02/08/2025 11:44 AM - Electronically signed by Marcos Carvalho M.D. ELISSA: ELISSA Report ID: [id number] Reading Location: [id number] Procedure Note Segundo Carvalho MD - 02/08/2025 EXAM DESCRIPTION: CT HEAD WO CONTRAST; CT CERVICAL SPINE WO CONTRAST REASON FOR STUDY: Polytrauma, blunt Pt came into ED from [facility] assisted living with c/o fall thisAM. Per pt, states was getting out of shower and slipped on wet floor causingher to fall backwards and hit her head. Hematoma noted to L posterior upperhead, no LOC/no dizziness/FONSECA. Pt denies upper back/neck pain. A/Ox4. Pttakes eliquis for hx Afib. TECHNIQUE: Axial images acquired through the brain without intravenous contrast. Axial images through the cervical spine with sagittal andcoronal reformatted images. Images stored on PACS. Automated exposure control was used as a dose optimization technique for this examination. COMPARISON: None FINDINGS: HEAD BRAIN: No hemorrhage, edema or mass effect. No recent infarct. The ventricular system and subarachnoid spaces are slightly enlarged. EXTRA-AXIAL SPACES: No fluid collections. No masses. CALVARIUM: No fracture. A 1.5 cm subcutaneous nodule is seen in theleft frontal region. SINUSES/MASTOIDS: No fluid or mucosal thickening. ORBITS: No significant abnormality. CERVICAL SPINE ALIGNMENT: Normal. VERTEBRAE: No fracture. Vertebral body heights well-maintained. DISCS: Disc space narrowing is seen at C4-5 and C7-T1. HARDWARE: None in the spine. INDIVIDUAL DISC LEVELS: There is mild foraminal narrowing at C5-6.There may be mild central acquired spinal stenosis at this level due to diffusedisc bulging UPPER THORACIC: Incompletely imaged. No significant osseous spinalstenosis or osseous neural foraminal stenosis. LUNG APICES: No significant abnormality. NECK SOFT TISSUES: No significant abnormality. OTHER: No other significant findings. IMPRESSION: 1.5 cm subcutaneous nodule in the left frontal region. Whether this isdue to a hematoma or other entity is unknown. Correlation with the physical examis recommended. No acute intracranial findings. No cervical spine fracture. Spondylosis is seen. There is possible mild central acquired spinal stenosis at C5-6. THIS IS AN ELECTRONICALLY VERIFIED FINAL REPORT 02/08/2025 11:44 AM - Electronically signed by Marcos Carvalho M.D. ELISSA: ELISSA Report ID: [id number] Reading Location: [id number] [facility] IMG CT PROCEDURES Final Result * CT Head WO Contrast (02/08/2025 10:36 AM CDT) Anatomical Region Laterality Modality Head and Neck N/A Computed Tomogra phy 02/08/2025 11:3 4 AM CDT Narrative 02/08/2025 11:44 AM CDT EXAM DESCRIPTION: CT HEAD WO CONTRAST; CT CERVICAL SPINE WO CONTRAST REASON FOR STUDY: Polytrauma, blunt Pt came into ED from [facility] assisted living with c/o fall this AM. Per pt, states was getting out of shower and slipped on wet floor causing her to fall backwards and hit her head. Hematoma noted to L posterior upper head, no LOC/no dizziness/FONSECA. Pt denies upper back/neck pain. A/Ox4. Pt takes eliquis for hx Afib. TECHNIQUE: Axial images acquired through the brain without intravenous contrast. Axial images through the cervical spine with sagittal and coronal reformatted images. Images stored on PACS. Automated exposure control was used as a dose optimization technique for this examination. COMPARISON: None FINDINGS: HEAD BRAIN: No hemorrhage, edema or mass effect. No recent infarct. The ventricular system and subarachnoid spaces are slightly enlarged. EXTRA-AXIAL SPACES: No fluid collections. No masses. CALVARIUM: No fracture. A 1.5 cm subcutaneous nodule is seen in the left frontal region. SINUSES/MASTOIDS: No fluid or mucosal thickening. ORBITS: No significant abnormality. CERVICAL SPINE ALIGNMENT: Normal. VERTEBRAE: No fracture. Vertebral body heights well-maintained. DISCS: Disc space narrowing is seen at C4-5 and C7-T1. HARDWARE: None in the spine. INDIVIDUAL DISC LEVELS: There is mild foraminal narrowing at C5-6. There may be mild central acquired spinal stenosis at this level due to diffuse disc bulging UPPER THORACIC: Incompletely imaged. No significant osseous spinal stenosis or osseous neural foraminal stenosis. LUNG APICES: No significant abnormality. NECK SOFT TISSUES: No significant abnormality. OTHER: No other significant findings. IMPRESSION: 1.5 cm subcutaneous nodule in the left frontal region. Whether this is due to a hematoma or other entity is unknown. Correlation with the physical exam is recommended. No acute intracranial findings. No cervical spine fracture. Spondylosis is seen. There is possible mild central acquired spinal stenosis at C5-6. THIS IS AN ELECTRONICALLY VERIFIED FINAL REPORT 02/08/2025 11:44 AM - Electronically signed by Marcos Carvalho M.D. ELISSA: ELISSA Report ID: [id number] Reading Location: [id number] Procedure Note Segundo Carvalho MD - 02/08/2025 EXAM DESCRIPTION: CT HEAD WO CONTRAST; CT CERVICAL SPINE WO CONTRAST REASON FOR STUDY: Polytrauma, blunt Pt came into ED from [facility] assisted living with c/o fall thisAM. Per pt, states was getting out of shower and slipped on wet floor causingher to fall backwards and hit her head. Hematoma noted to L posterior upperhead, no LOC/no dizziness/FONSECA. Pt denies upper back/neck pain. A/Ox4. Pttakes eliquis for hx Afib. TECHNIQUE: Axial images acquired through the brain without intravenous contrast. Axial images through the cervical spine with sagittal andcoronal reformatted images. Images stored on PACS. Automated exposure control was used as a dose optimization technique for this examination. COMPARISON: None FINDINGS: HEAD BRAIN: No hemorrhage, edema or mass effect. No recent infarct. The ventricular system and subarachnoid spaces are slightly enlarged. EXTRA-AXIAL SPACES: No fluid collections. No masses. CALVARIUM: No fracture. A 1.5 cm subcutaneous nodule is seen in theleft frontal region. SINUSES/MASTOIDS: No fluid or mucosal thickening. ORBITS: No significant abnormality. CERVICAL SPINE ALIGNMENT: Normal. VERTEBRAE: No fracture. Vertebral body heights well-maintained. DISCS: Disc space narrowing is seen at C4-5 and C7-T1. HARDWARE: None in the spine. INDIVIDUAL DISC LEVELS: There is mild foraminal narrowing at C5-6.There may be mild central acquired spinal stenosis at this level due to diffusedisc bulging UPPER THORACIC: Incompletely imaged. No significant osseous spinalstenosis or osseous neural foraminal stenosis. LUNG APICES: No significant abnormality. NECK SOFT TISSUES: No significant abnormality. OTHER: No other significant findings. IMPRESSION: 1.5 cm subcutaneous nodule in the left frontal region. Whether this isdue to a hematoma or other entity is unknown. Correlation with the physical examis recommended. No acute intracranial findings. No cervical spine fracture. Spondylosis is seen. There is possible mild central acquired spinal stenosis at C5-6. THIS IS AN ELECTRONICALLY VERIFIED FINAL REPORT 02/08/2025 11:44 AM - Electronically signed by Marcos Carvalho M.D. ELISSA: ELISSA Report ID: [id number] Reading Location: [id number] Lan MAN IMG CT PROCEDURES Final Result * eGFR (02/08/2025 10:13 AM CDT) eGFR 83 >=60 mL/min/1. 73 m2 Comment: Interpretive Data Reference Interval Normal >/= 90 mL/min/1.73m2 Mildly decreased* 60 - 89 mL/min/1.73m2 Mildly to moderately decreased 45 - 59 mL/min/1.73m2 Moderately to severely decreased 30 - 44 mL/min/1.73m2 Severely decreased 15 - 29 mL/min/1.73m2 Kidney Failure < 15 mL/min/1.73m2 *Relative to young adult level Estimated glomerular filtration rate is determined by the 2020 CKD-EPI equation recommended by the National [employer] (A Unifying Approach to GFR Estimation: Recommendations of the NKF-ASK Task Force on Reassessing the Inclusion of Race in Diagnosing Kidney Disease, JASN 202). The CKD-EPI equation should not be used for patients with unstable renal function and has not been validated in children and those over 70. Current interpretive data was last reviewed 2021. Testing performed by: [facility], [address] [place] [address]., [id number] Blood 02/08/2025 10:1 3 AM CDT 02/08/2025 10:18 AM CDT us Jeff Alexander DO LAB BLOOD ORDERABLES Final Result [facility] [id number] [facility] Department [place] [address] * (ABNORMAL) Differential, auto (02/08/2025 10:13 AM CDT) Neutrophil abs 8.0(H) 1.5 - 6.5 K/cumm Comment:Testing performed by : [address] [address] Imm gran abs 0.0 0.0 - 0.1 K/cumm EDU[facility]O Comment:Testing performed by : [address] [address] Lymphocyte abs 1.2 0.8 - 3.3 K/cumm EDUARDO Comment:Testing performed by : [address] [address] Monocyte abs 0.8 0.2 - 0.8 K/cumm EDUARDO Comment:Testing performed by : [address] [address] Eosinophil abs 0.3 0.0 - 0.5 K/cumm EDU[facility]O Comment:Testing performed by : [address] [address] Basophil abs 0.0 0.0 - 0.1 K/cumm EDUARDO Comment:Testing performed by : [address] [address] Neutrophil pct 78.0 % [facility] Comment: Interpretive Data Percent cell count reference ranges are not reported, since discordance with absolute values may lead to misinterpretation of CBC data. Current Interpretive Data was last revised on 2018. Testing performed by: [address] [address] Imm gran pct 0.3 % [facility] Comment: Interpretive Data Percent cell count reference ranges are not reported, since discordance with absolute values may lead to misinterpretation of CBC data. Current Interpretive Data was last revised on 2018. Testing performed by: [address] [address] Lymphocyte pct 11.4 % [facility] Comment: Interpretive Data Percent cell count reference ranges are not reported, since discordance with absolute values may lead to misinterpretation of CBC data. Current Interpretive Data was last revised on 2018. Testing performed by: [address] [address] Monocyte pct 7.3 % [facility] Comment: Interpretive Data Percent cell count reference ranges are not reported, since discordance with absolute values may lead to misinterpretation of CBC data. Current Interpretive Data was last revised on 2018. Testing performed by: [address] [address] Eosinophil pct 2.6 % [facility] Comment: Interpretive Data Percent cell count reference ranges are not reported, since discordance with absolute values may lead to misinterpretation of CBC data. Current Interpretive Data was last revised on 2018. Testing performed by: [address] [address] Basophil pct 0.4 % [facility] Comment: Interpretive Data Percent cell count reference ranges are not reported, since discordance with absolute values may lead to misinterpretation of CBC data. Current Interpretive Data was last revised on 2018. Testing performed by: [address] [address] Blood 02/08/2025 10:1 3 AM CDT 02/08/2025 10:18 AM CDT us Jeff Alexander DO LAB BLOOD ORDERABLES Final Result [facility] [address] [facility] Department [place] [address] * (ABNORMAL) CBC with auto differential (02/08/2025 10:13 AM CDT) Pathologist [facility] WBC 10.3(H) 3.8 - 9.9 K/cumm Comment:Testing performed by : [address] [address] Hgb 14.8 11.9 - 15.5 g/dL ED[facility] Comment:Testing performed by : [address] [address] Hct 43.8 35.6 - 45.5 % [facility] Comment:Testing performed by : [address] [address] Plt 230 150 - 400 K/cumm ED[facility]O Comment:Testing performed by : [address] [address] MPV 11.6 9.1 - 12.3 fL [facility] Comment:Testing performed by : [address] [address] RBC 4.64 3.90 - 5.20 M/cumm ED[facility]O Comment:Testing performed by : [address] [address] MCV 94.4 81.3 - 96.4 fL [facility] Comment:Testing performed by : [address] [address] MCH 31.9 27.1 - 33.3 pg [facility] Comment:Testing performed by : [address] [address] MCHC 33.8 32.3 - 35.7 g/dL ED[facility] Comment:Testing performed by : [address] [address] RDW CV 13.8 11.1 - 14.9 % [facility] Comment:Testing performed by : [address] [address] RDW SD 47.5 35.7 - 48.1 fL [facility] Comment:Testing performed by : [address] [address] NRBC abs 0.00 0.00 - 0.01 K/cumm ED[facility]O Comment:Testing performed by : [address] [address] Blood 02/08/2025 10:1 3 AM CDT 02/08/2025 10:18 AM CDT Jeff Alexander DO LAB BLOOD ORDERABLES Final Result Performing Organization Address [facility] Co de Phone Number [facility] [place] [address] * aPTT (02/08/2025 10:13 AM CDT) aPTT 30 22 - 37 sec Comment: Interpretive data aPTT test has not been evaluated for monitoring heparin therapy. The anti-Xa is the preferred test. Current interpretive data was last revised on 2019. Testing performed by: [address] [address] Blood 02/08/2025 10:1 3 AM CDT 02/08/2025 10:18 AM CDT Lan Smith PA LAB BLOOD ORDERABL ES Final Result Performing Organization Address [facility] Co de Phone Number ED[facility]O [facility] [place] [address] * (ABNORMAL) Protime-INR (02/08/2025 10:13 AM CDT) PT 16.3(H) 12.0 - 14.6 sec Comment: Ref Range High Testing performed by: [address] [address] INR 1.3(H) 0.9 - 1.2 [facility] Comment: Ref Range High Interpretive data Oral anticoagulant therapeutic ranges: Venous thromboembolism prophylaxis or treatment: 2.0-3.0 CARDIOLOGY Standard range: 2.0-3.0 High-intensity range: 2.5-3.5 Refer to indication-specific guidelines for appropriate target ranges for prosthetic heart valve replacement. Current interpretive data was last revised on 2019. Testing performed by: [address] [address] Blood 02/08/2025 10:1 3 AM CDT 02/08/2025 10:18 AM CDT Lan MAN LAB BLOOD ORDERABL ES Final Result [facility] [address] [facility] Department [place] [address] * (ABNORMAL) Comprehensive metabolic panel (02/08/2025 10:13 AM CDT) Sodium 140 135 - 145 mmol/L Comment:Testing performed by : [address] [address] Potassium, pl 4.5 3.3 - 4.9 mmol/L [facility] Comment: Hemolyzed; Potassium value may be falsely elevated by as much as 1.0 mmol/L. Suggest redraw and reanalysis. Testing performed by: [address] [address] Chloride 102 97 - 110 mmol/L [facility] Comment:Testing performed by : [address] [address] CO2 28 22 - 32 mmol/L [facility] Comment:Testing performed by : [address] [address] Anion gap 10 2 - 15 mmol/L [facility] Comment:Testing performed by : [address] [address] BUN 22 6 - 25 mg/dL [facility] Comment:Testing performed by : [address] [address] Creatinine 0.70 0.60 - 1.10 mg/dL [facility] Comment:Testing performed by : [address] [address] Glucose 116 70 - 199 mg/dL [facility] Comment: Interpretive Data Fasting glucose >/= 126 mg/dl is diagnostic for diabetes. Fasting is defined as no caloric intake for at least 8 hours. Fasting glucose between 100 mg/dl to 125 mg/dl is diagnostic of prediabetes. In a patient with classic symptoms of hyperglycemia or hyperglycemic crisis, a random glucose >/= 200 mg/dl is diagnostic for diabetes. In the absence of unequivocal hyperglycemia, results should be confirmed by repeat testing. The classification and Diagnosis of Diabetes Diabetes Care 2022; 46: S19-S40. Current interpretive data was last revised 2022. Testing performed by: [facility], [address] [place] [address]., [address] Calcium 10.5(H) 8.5 - 10.3 mg/dL ED[facility]O Comment:Testing performed by : [address] [address] Bilirubin, total 0.5 0.1 - 1.2 mg/dL [facility] Comment:Testing performed by : [address] [address] Protein, pl 6.5 6.5 - 8.5 g/dL [facility] Comment:Testing performed by : [address] [address] Albumin 4.2 3.5 - 5.0 g/dL [facility] Comment:Testing performed by : [address] [address] Alk phos 113 40 - 130 Units/L [facility] Comment:Testing performed by : [address] [address] ALT 24 7 - 45 Units/L [facility] Comment:Testing performed by : [address] [address] AST 32 10 - 45 Units/L [facility] Comment: Hemolyzed; result may be falsely elevated Testing performed by: [address] [address] Blood 02/08/2025 10:1 3 AM CDT 02/08/2025 10:18 AM CDT us Jeff Alexander DO LAB BLOOD ORDERABLES Final Result [facility] [address] [facility] [place] [address] * ECG 12 lead (02/08/2025 10:09 AM CDT) Ventricular Rate EKG/Min 77 BPM [facility] Atrial Rate 57 BPM [facility] QRS-Interval (MSEC) 84 ms [facility] QT-Interval (MSEC) 362 ms [facility] QTc 409 ms [facility] R [place] -13 degrees [facility] T [place] 38 degrees [facility] Diagnosis Atrial fibrillation Voltage criteria for left ventricular hypertrophy Abnormal ECG No previous ECGs available Confirmed by MELISSA ROBINS M.D. ([id number]) on 02/08/2025 2:05:53 PM [facility] 02/08/2025 10:0 9 AM CDT 02/08/2025 2:05 PM CDT us Jeff Alexander DO ECG ORDERABLES Final Resul t [facility] [place] from Last 3 Months Insurance [place] [phone] [facility] Care Teams Embroiderer Hand Relationship Specialty Start Date End Date Delma Whitmore NP [address] [facility] [address] [place] [address] PCP - General Nurse Practitioner 10/27/23
--- OUTSIDE RECORDS SUMMARY | 2025-04-28 15:57 | XMS_ITS | Clinical Summary ---
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 Gender Identity Not on file Sexual Orientation [...] 02/08/2025 10:01 AM CDT Plan of Treatment Health Maintenance Due Date Last Done Comments Depression Screening 1936 Fall Risk Assessment 1936 DTaP/Tdap/Td Vaccine (1 - Tdap) 1947 Hepatitis B Screening 1954 Zoster Vaccine (1 of 2) 1986 Well Visit 65+ 2001 Pneumococcal vaccine 65+ (2 of 2 - PPSV23) 12/11/2018 12/11/2017 Influenza Vaccine (Season Ended) 2025 09/22/20 22, 09/28/2018 Procedures Procedure Name Priority Date/Time Associated Diagnosis [...] xray done Pt came into ED from [facility] assisted living with c/o fall this [...] Tavares Cervantes M.D. MJ: MICHAEL Report ID: [id number] Reading Location: [id number] Procedure Note Tavares Cervantes MD - 02/08/2025 EXAM DESCRIPTION: CT HIP LEFT WO CONTRAST REASON FOR STUDY: Hip trauma, fracture suspected, xray done Pt came into ED from [facility] assisted living with c/o fall thisAM. [...] Tavares Cervantes M.D. MJ: MICHAEL Report ID: [id number] Reading Location: [id number] Lan Smith MAGDA IMG CT PROCEDURES Final Result * XR [...] Akosua Pozo M.D. TW: DIXIE Report ID: [id number] Reading Location: [id number] Procedure Note Akosua Pozo MD - 02/08/2025 [...] Akosua Pozo M.D. TW: DIXIE Report ID: [id number] Reading Location: [place] [address] Lan MAN IMG XR PROCEDURES Final Result * CT Chest Abdomen Pelvis WO Contrast (02/08/2025 10:36 AM CDT) Anatomical Region Laterality Modality Body N/A Computed Tomogra phy 02/08/2025 11:4 4 AM CDT Narrative 02/08/2025 11:58 AM CDT EXAM DESCRIPTION: CT CHEST ABDOMEN PELVIS WO CONTRAST REASON FOR STUDY: Polytrauma, blunt Pt came into ED from [facility] assisted living with c/o fall this [...] Marcos Carvalho M.D. ELISSA: ELISSA Report ID: [id number] Reading Location: [id number] Procedure Note Segundo Carvalho MD - 02/08/2025 EXAM DESCRIPTION: CT CHEST ABDOMEN PELVIS WO CONTRAST REASON FOR STUDY: Polytrauma, blunt Pt came into ED from [facility] assisted living with c/o fall thisAM. [...] Marcos Carvalho M.D. ELISSA: ELISSA Report ID: [id number] Reading Location: [id number] Lan MAN IMG CT PROCEDURES Final Result * CT Cervical Spine WO Contrast (02/08/2025 10:36 AM CDT) Anatomical Region Laterality Modality Spine N/A Computed Tomogra phy 02/08/2025 11:3 4 AM CDT Narrative 02/08/2025 11:44 AM CDT EXAM DESCRIPTION: CT HEAD WO CONTRAST; CT CERVICAL SPINE WO CONTRAST REASON FOR STUDY: Polytrauma, blunt Pt came into ED from [facility] assisted living with c/o fall this [...] Marcos Carvalho M.D. ELISSA: ELISSA Report ID: [id number] Reading Location: [id number] Procedure Note Segundo Carvalho MD - 02/08/2025 EXAM DESCRIPTION: CT HEAD WO CONTRAST; CT CERVICAL SPINE WO CONTRAST REASON FOR STUDY: Polytrauma, blunt Pt came into ED from [facility] assisted living with c/o fall thisAM. [...] Marcos Carvalho M.D. ELISSA: ELISSA Report ID: [id number] Reading Location: [id number] Lan MAN IMG CT PROCEDURES Final Result * CT Head WO Contrast (02/08/2025 10:36 AM CDT) Anatomical Region Laterality Modality Head and Neck N/A Computed Tomogra phy 02/08/2025 11:3 4 AM CDT Narrative 02/08/2025 11:44 AM CDT EXAM DESCRIPTION: CT HEAD WO CONTRAST; CT CERVICAL SPINE WO CONTRAST REASON FOR STUDY: Polytrauma, blunt Pt came into ED from [facility] assisted living with c/o fall this [...] Marcos Carvalho M.D. ELISSA: ELISSA Report ID: [id number] Reading Location: [id number] Procedure Note Segundo Carvalho MD - 02/08/2025 EXAM DESCRIPTION: CT HEAD WO CONTRAST; CT CERVICAL SPINE WO CONTRAST REASON FOR STUDY: Polytrauma, blunt Pt came into ED from [facility] assisted living with c/o fall thisAM. [...] Marcos Carvalho M.D. ELISSA: ELISSA Report ID: [id number] Reading Location: [place] [address] PROCEDURES Final Result [...] of Race in Diagnosing Kidney Disease, JASN 2020). The CKD-EPI equation should not be used for patients with unstable renal function and has not been validated in children and those over 70. Current interpretive data was last reviewed 2021. Testing performed by: [address] [address] Blood 02/08/2025 10:1 3 AM CDT 02/08/2025 10:18 AM CDT us Jeff Alexander DO LAB BLOOD ORDERABLES Final Result Performing Organization Address City/State/[facility] Co de Phone Number EDUARDO [address] [facility] Department [place] [address] * (ABNORMAL) Differential, auto (02/08/2025 10:13 AM CDT) Neutrophil abs 8.0(H) 1.5 - 6.5 K/cumm Comment:Testing performed by : [address] [address] Imm gran abs 0.0 0.0 - 0.1 K/cumm EDU[place]O Comment:Testing performed by : [address] [address] Lymphocyte abs 1.2 0.8 - 3.3 K/cumm EDU[place]O Comment:Testing performed by : [address] [address] Monocyte abs 0.8 0.2 - 0.8 K/cumm EDU[place]O Comment:Testing performed by : [address] [address] Eosinophil abs 0.3 0.0 - 0.5 K/cumm ED[place] Comment:Testing performed by : [address] [address] Basophil abs 0.0 0.0 - 0.1 K/cumm [facility] Comment:Testing performed by : [address] [address] Neutrophil pct 78.0 % [facility] Comment: Interpretive Data Percent cell count reference ranges are not reported, since discordance with absolute values may lead to misinterpretation of CBC data. Current Interpretive Data was last revised on 2018. Testing performed by: [address] [address] Imm gran pct 0.3 % [facility] Comment: Interpretive Data Percent cell count reference ranges are not reported, since discordance with absolute values may lead to misinterpretation of CBC data. Current Interpretive Data was last revised on 2018. Testing performed by: [address] [address] Lymphocyte pct 11.4 % [facility] Comment: Interpretive Data Percent cell count reference ranges are not reported, since discordance with absolute values may lead to misinterpretation of CBC data. Current Interpretive Data was last revised on 2018. Testing performed by: [address] [address] Monocyte pct 7.3 % [facility] Comment: Interpretive Data Percent cell count reference ranges are not reported, since discordance with absolute values may lead to misinterpretation of CBC data. Current Interpretive Data was last revised on 2018. Testing performed by: [address] [address] Eosinophil pct 2.6 % [facility] Comment: Interpretive Data Percent cell count reference ranges are not reported, since discordance with absolute values may lead to misinterpretation of CBC data. Current Interpretive Data was last revised on 2018. Testing performed by: [address] [address] Basophil pct 0.4 % [facility] Comment: Interpretive Data Percent cell count reference ranges are not reported, since discordance with absolute values may lead to misinterpretation of CBC data. Current Interpretive Data was last revised on 2018. Testing performed by: [address] [address] Blood 02/08/2025 10:1 3 AM CDT 02/08/2025 10:18 AM CDT us Jeff Alexander DO LAB BLOOD ORDERABLES Final Result [facility] [address] [facility] Department [place] [address] * (ABNORMAL) CBC with auto differential (02/08/2025 10:13 AM CDT) [facility] WBC 10.3(H) 3.8 - 9.9 K/cumm Comment:Testing performed by : [address] [address] Hgb 14.8 11.9 - 15.5 g/dL EDUARDO Comment:Testing performed by : [address] [address] Hct 43.8 35.6 - 45.5 % EDU[place]O Comment:Testing performed by : [address] [address] Plt 230 150 - 400 K/cumm EDUARDO Comment:Testing performed by : [address] [address] MPV 11.6 9.1 - 12.3 fL EDU[place]O Comment:Testing performed by : [address] [address] RBC 4.64 3.90 - 5.20 M/cumm EDUARDO Comment:Testing performed by : [address] [address] MCV 94.4 81.3 - 96.4 fL ED[place]O Comment:Testing performed by : [address] [address] MCH 31.9 27.1 - 33.3 pg EDUARDO QUESADA Comment:Testing performed by : [address] [address] MCHC 33.8 32.3 - 35.7 g/dL EDUARDO Comment:Testing performed by : [address] [address] RDW CV 13.8 11.1 - 14.9 % EDU[place]O Comment:Testing performed by : [address] [address] RDW SD 47.5 35.7 - 48.1 fL ED[place]O Comment:Testing performed by : [address] [address] NRBC abs 0.00 0.00 - 0.01 K/cumm EDU[place]O Comment:Testing performed by : [address] [address] Blood 02/08/2025 10:1 3 AM CDT 02/08/2025 10:18 AM CDT Jeff Alexander DO LAB BLOOD ORDERABLES Final Result Performing Organization Address [facility] Co de Phone Number [address] [place] [address] * aPTT (02/08/2025 10:13 AM CDT) aPTT 30 22 - 37 sec Comment: Interpretive data aPTT test has not been evaluated for monitoring heparin therapy. The anti-Xa is the preferred test. Current interpretive data was last revised on 2019. Testing performed by: [address], [address] Blood 02/08/2025 10:1 3 AM CDT 02/08/2025 10:18 AM CDT Lan Huerta Adesida PA LAB BLOOD ORDERABL ES Final Result Performing Organization Address City/[facility] Co de Phone Number [address] [place] [address] * (ABNORMAL) Protime-INR (02/08/2025 10:13 AM CDT) PT 16.3(H) 12.0 - 14.6 sec Comment: Ref Range High Testing performed by: [address] [place]., [address] INR 1.3(H) 0.9 - 1.2 EDUARDO QUESADA Comment: Ref Range High Interpretive data Oral anticoagulant therapeutic ranges: Venous thromboembolism prophylaxis or treatment: 2.0-3.0 CARDIOLOGY Standard range: 2.0-3.0 High-intensity range: 2.5-3.5 Refer to indication-specific guidelines for appropriate target ranges for prosthetic heart valve replacement. Current interpretive data was last revised on 2019. Testing performed by: [address] [address] Blood 02/08/2025 10:1 3 AM CDT 02/08/2025 10:18 AM CDT Lan MAN LAB BLOOD ORDERABL ES Final Result EDUARDO [facility] Department [place] [address] * (ABNORMAL) Comprehensive metabolic panel (02/08/2025 10:13 AM CDT) Sodium 140 135 - 145 mmol/L Comment:Testing performed by : [address] [address] Potassium, pl 4.5 3.3 - 4.9 mmol/L EDU[place]O QUESADA Comment: Hemolyzed; Potassium value may be falsely elevated by as much as 1.0 mmol/L. Suggest redraw and reanalysis. Testing performed by: [address] [address] Chloride 102 97 - 110 mmol/L EDUARDO Comment:Testing performed by : [address] [address] CO2 28 22 - 32 mmol/L EDUARDO Comment:Testing performed by : [address] [address] Anion gap 10 2 - 15 mmol/L EDUARDO Comment:Testing performed by : [address] [address] BUN 22 6 - 25 mg/dL EDUARDO QUESADA Comment:Testing performed by : [address] [address] Creatinine 0.70 0.60 - 1.10 mg/dL EDUARDO Comment:Testing performed by : [address] [address] Glucose 116 70 - 199 mg/dL EDUARDO [...] classification and Diagnosis of Diabetes Diabetes Care 202; 46: S19-S40. Current interpretive data was last revised 2022. Testing performed by: [address] [address] Calcium 10.5(H) 8.5 - 10.3 mg/dL EDUARDO Comment:Testing performed by : [address] [address] Bilirubin, total 0.5 0.1 - 1.2 mg/dL EDUARDO Comment:Testing performed by : [address] [address] Protein, pl 6.5 6.5 - 8.5 g/dL EDU[place]O Comment:Testing performed by : [address] [address] Albumin 4.2 3.5 - 5.0 g/dL EDUARDO Comment:Testing performed by : [address] [address] Alk phos 113 40 - 130 Units/L EDUARDO Comment:Testing performed by : [address] [address] ALT 24 7 - 45 Units/L EDUARDO Comment:Testing performed by : [address] [address] AST 32 10 - 45 Units/L EDUARDO Comment: Hemolyzed; result may be falsely elevated Testing performed by: [place] [address], [place]., [address] Blood 02/08/2025 10:1 3 AM CDT 02/08/2025 10:18 AM CDT Jeff Alexander DO LAB BLOOD ORDERABLES Final Result ED[place] [address] [facility] Department [place] [address] * ECG 12 lead (02/08/2025 10:09 AM CDT) Pathologist [facility] Ventricular Rate EKG/Min 77 BPM [facility] Atrial Rate 57 BPM [facility] QRS-Interval (MSEC) 84 ms [facility] QT-Interval (MSEC) 362 ms [facility] QTc 409 ms [facility] R Olpe -13 degrees [facility] T Olpe 38 degrees [facility] Diagnosis Atrial fibrillation Voltage criteria for left ventricular hypertrophy Abnormal ECG No previous ECGs available Confirmed by MELISSA ROBINS M.D. ([id number]) on 02/08/2025 2:05:53 PM [facility] 02/08/2025 10:0 9 AM CDT 02/08/2025 2:05 PM CDT us Jeff Alexander DO ECG ORDERABLES Final Resul t Performing Organization Address City/[facility] Co de Phone Number [facility] from Last 3 Months Insurance MEDICARE [employer] [facility] Care Teams House Painting Instructor Relationship Specialty Start Date End Date Delma Whitmore NP [address] [place] [address] PCP - General Nurse Practitioner 10/27/23
--- OUTSIDE RECORDS SUMMARY | 2025-04-28 15:57 | XMS_ITS ---
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 Name Role Phone [place], Anay Yana Unavailable [phone] Angel Lazo Unavailable [phone] Functional Status No Results Mental Status No Results Allergies and Intolerances Name Onset Date Reaction Severity No Known Allergies (Allergy) ThuMay 17 14:41:00 EDT 2023 Encounters Program Name Primary Diagnosis Admission Date/Time Dis charge Date/Time It [facility] Care Facility [facility] Unit ThuMay 17 09:30:00 EDT 2023Jun 07 06:00:00 EDT 2023 Medications Medication Directions Start Date End Date acetaminophen 325 mg tablet 2 tablets TA BLET Oral PRN Every 6 Hours Indication: Pain ThuJun 02 18:37:00 EDT 2023Jun 07 01:00:00 EDT 2023 acetaminophen 325 mg tablet 2 tablets TA BLET Oral Every 6 Hours Indication: pain ThuMay 25 12:42:00 EDT 2023Jun 02 18:38:00 EDT 2023 amoxicillin 875 mg-potassium clavulanate 125 mg tablet 1 tablet TABLET Oral 2 Times Daily for 10 Days Indication: Leukocytosis ThuMay 20 18:00:00 EDT 2023May 30 17:59:00 EDT 2023 TubersoL 5 tub. unit/0.1 mL intradermal injection solution 0.1 ml VIAL (ML) Intradermal 1 Time Weekly for 2 Weeks Indication: TB Test 1st injection on admission, then one week after. Read between 48 and 72 hours ThuMay 18 01:00:00 EDT 2023Jun 01 00:59:00 EDT 2023 TubersoL 5 tub. unit/0.1 mL intradermal injection solution Read Results VIAL (ML) Other 1 Time Weekly for 2 Weeks Indication: TB Test Read results between 48-72 hours after 1st and 2nd (1 week apart). If positive do chest x-ray. ThuMay 18 01:00:00 EDT 2023Jun 01 00:59:00 EDT 2023 tamsulosin 0.4 mg capsule 1 cap CAPSULE Oral 1 Time Daily Indication: Retention ThuMay 17 14:44:00 EDT 2023Jun 07 01:00:00 EDT 2023 ascorbate calcium (vitamin C ) 500 mg tablet 2 tab TABLET Oral 1 Time Daily Indication: Supplement ThuMay 17 14:51:00 EDT 2023Jun 07 01:00:00 EDT 2023 vitamin B complex-vitamin C-folic acid 400 mcg tablet 1 tab TABLET Oral 1 Time Daily Indication: Supplement ThuMay 17 14:52:00 EDT 2023Jun 07 01:00:00 EDT 2023 carvediloL 6.25 mg tablet 1 tab TABLET O ral 2 Times Daily Indication: A-fib ThuMay 17 14:53:00 EDT 2023Jun 07 01:00:00 EDT 2023 coenzyme Q10 100 mg capsule 1 cap CAPSUL E Oral 1 Time Daily Indication: Heart health ThuMay 17 14:54:00 EDT 2023Jun 07 01:00:00 EDT 2023 Eliquis 5 mg tablet 1 tab TABLET Oral 2 Times Daily Indication: a-fib ThuMay 17 14:54:00 EDT 2023Jun 07 01:00:00 EDT 2023 hydroCHLOROthiazide 25 mg tablet 1 tab TABLET Oral 1 Time Daily Indication: HTN ThuMay 17 14:55:00 EDT 2023Jun 07 01:00:00 EDT 2023 losartan 100 mg tablet 1 tab TABLET Oral 1 Time Daily Indication: HTN ThuMay 17 14:56:00 EDT 2023Jun 07 01:00:00 EDT 2023 Problems Active Concerns * Cellulitis of left lower limb* Code: * Start Date: ThuMay 17 00:00:00 EDT 2023 * End Date: * Text: * Acute embolism and thrombosis of unspecified deep veins of left lower extremity* Code: * Start Date: ThuMay 17 00:00:00 EDT 2023 * End Date: * Text: * Paroxysmal atrial fibrillation* Code: * Start Date: ThuMay 17 00:00:00 EDT 2023 * End Date: * Text: * care home (current) use of anticoagulants* Code: * Start Date: ThuMay 17 00:00:00 EDT 2023 * End Date: * Text: * Resistant hypertension* Code: * Start Date: ThuMay 17 00:00:00 EDT 2023 * End Date: * Text: * Retention of urine, unspecified* Code: * Start Date: ThuMay 17 00:00:00 EDT 2023 * End Date: * Text: * Contusion of left thigh, subsequent encounter* Code: * Start Date: ThuMay 17 00:00:00 EDT 2023 * End Date: * Text: * Presence of left artificial hip joint* Code: * Start Date: ThuMay 17 00:00:00 EDT 2023 * End Date: * Text: * Hypercalcemia* Code: * Start Date: ThuMay 17 00:00:00 EDT 2023 * End Date: * Text: * Acute posthemorrhagic anemia* Code: * Start Date: ThuMay 17 00:00:00 EDT 2023 * End Date: * Text: * Abnormal results of liver function studies* Code: * Start Date: ThuMay 17 00:00:00 EDT 2023 * End Date: * Text: * [facility] Services[facility]ber Sophia will be involved in discharge planning.* Code: * Start Date: ThuMay 20 00:00:00 EDT 2023 * End Date: * Text: [facility]- Sophia will be involved in discharge planning. * [facility]- Sophia's mobility level is different than prior level due to current medical condition.* Code: * Start Date: ThuMay 20 00:00:00 EDT 2023 * End Date: * Text: [facility]- Sophia's mobility level is different than prior level due to current medical condition. * [facility]- Sophia has family/friends who are supportive.* Code: * Start Date: ThuMay 20 00:00:00 EDT 2023 * End Date: * Text: Bruce Cortes has family/friends who are supportive. * Bruce Cortes will be involved in goal development to the best of his or her ability.* Code: * Start Date: ThuMay 20 00:00:00 EDT 2023 * End Date: * Text: Bruce Cortes will be involved in goal development to the best of his or her ability. * Bruce Cortes's wishes will be followed (Advanced Directive/Code Status).* Code: * Start Date: ThuMay 20 00:00:00 EDT 2023 * End Date: * Text: Bruce Cortes's wishes will be followed (Advanced Directive/Code Status). Resolved Concerns * Problem Anemia, unspecified* Code: * Start Date: ThuMay 17 00:00:00 EDT 2023 * End Date: ThuJun 06 00:00:00 EDT 2023 * Problem Essential (primary) hypertension* Code: * Start Date: ThuMay 17 00:00:00 EDT 2023 * End Date: ThuJun 06 00:00:00 EDT 2023 Vital Signs Vital Sign Measurement Date Systolic Blood Pressure 153.00 mm[Hg] ThuJun 07 10:39:07 EDT 2023 Diastolic Blood Pressure 79.00 mm[Hg] ThuJun 07 10:39:07 ED2023 Heart Rate 84.00 /min ThuJun 07 10:39 :07 EDT 2023 Body temperature 98.20 [degF] ThuJun 07 10:3 9:07 EDT 2023 Respiratory rate 18.00 /min ThuJun 07 10:3 9:07 EDT 2023 Systolic Blood Pressure 153.00 mm[Hg] ThuJun 07 09:08:25 EDT 2023 Diastolic Blood Pressure 79.00 mm[Hg] ThuJun 07 09:08:25 EDT 2023 Systolic Blood Pressure 153.00 mm[Hg] ThuJun 07 09:08:25 EDT 2023 Diastolic Blood Pressure 79.00 mm[Hg] ThuJun 07 09:08:25 EDT 2023 Systolic Blood Pressure 145.00 mm[Hg] ThuJun 06 23:27:31 EDT 2023 Diastolic Blood Pressure 66.00 mm[Hg] ThuJun 06 23:27:31 EDT 2023 Heart Rate 85.00 /min ThuJun 06 23:27 :31 EDT 2023 Body temperature 97.30 [degF] ThuJun 06 23:2 7:31 EDT 2023 Respiratory rate 18.00 /min ThuJun 06 23:2 7:31 EDT 2023 Body weight 166.00 [lb_av] ThuJun 06 11:36 :48 EDT 2023 Systolic Blood Pressure 147.00 mm[Hg] ThuJun 06 09:11:10 EDT 2023 Diastolic Blood Pressure 71.00 mm[Hg] ThuJun 06 09:11:10 EDT 2023 Systolic Blood Pressure 147.00 mm[Hg] ThuJun 06 09:11:10 EDT 2023 Diastolic Blood Pressure 71.00 mm[Hg] ThuJun 06 09:11:10 EDT 2023 Systolic Blood Pressure 147.00 mm[Hg] ThuJun 06 09:11:10 EDT 2023 Diastolic Blood Pressure 71.00 mm[Hg] ThuJun 06 09:11:10 EDT 2023 Heart Rate 85.00 /min ThuJun 06 09:11 :10 EDT 2023 Body temperature 97.80 [degF] ThuJun 06 09:1 1:10 EDT 2023 Respiratory rate 18.00 /min ThuJun 06 09:1 1:10 EDT 2023 Systolic Blood Pressure 134.00 mm[Hg] ThuJun 05 20:10:53 EDT 2023 Diastolic Blood Pressure 72.00 mm[Hg] ThuJun 05 20:10:53 EDT 2023 Heart Rate 82.00 /min ThuJun 05 20:10 :53 EDT 2023 Body temperature 97.50 [degF] ThuJun 05 20:1 0:53 EDT 2023 Respiratory rate 18.00 /min ThuJun 05 20:1 0:53 EDT 2023 Systolic Blood Pressure 154.00 mm[Hg] ThuJun 05 09:53:57 EDT 2023 Diastolic Blood Pressure 74.00 mm[Hg] ThuJun 05 09:53:57 EDT 2023 Body weight 166.40 [lb_av] ThuJun 05 09:53 :57 EDT 2023 Heart Rate 83.00 /min ThuJun 05 09:53 :57 EDT 2023 Body temperature 97.40 [degF] ThuJun 05 09:5 3:57 EDT 2023 Respiratory rate 22.00 /min ThuJun 05 09:5 3:57 EDT 2023 Systolic Blood Pressure 154.00 mm[Hg] ThuJun 05 08:45:36 EDT 2023 Diastolic Blood Pressure 74.00 mm[Hg] ThuJun 05 08:45:36 EDT 2023 Systolic Blood Pressure 154.00 mm[Hg] ThuJun 05 08:45:36 EDT 2023 Diastolic Blood Pressure 74.00 mm[Hg] ThuJun 05 08:45:36 EDT 2023 Systolic Blood Pressure 122.00 mm[Hg] ThuJun 05 00:05:04 EDT 2023 Diastolic Blood Pressure 64.00 mm[Hg] ThuJun 05 00:05:04 EDT 2023 Heart Rate 71.00 /min ThuJun 05 00:05 :04 EDT 2023 Body temperature 98.40 [degF] ThuJun 05 00:0 5:04 EDT 2023 Respiratory rate 18.00 /min ThuJun 05 00:0 5:04 EDT 2023 Body weight 166.20 [lb_av] Sat Jun 04 13:21 :14 EDT 2023 Systolic Blood Pressure 152.00 mm[Hg] ThuJun 04 08:20:51 EDT 2023 Diastolic Blood Pressure 71.00 mm[Hg] Sat Jun 04 08:20:51 EDT 2023 Systolic Blood Pressure 152.00 mm[Hg] Sat Jun 04 08:20:51 EDT 2023 Diastolic Blood Pressure 71.00 mm[Hg] Sat Jun 04 08:20:51 EDT 2023 Systolic Blood Pressure 152.00 mm[Hg] Sat Jun 04 08:20:51 EDT 2023 Diastolic Blood Pressure 71.00 mm[Hg] Sat Jun 04 08:20:51 EDT 2023 Heart Rate 85.00 /min Sat Jun 04 08:20 :51 EDT 2023 Body temperature 98.00 [degF] Sat Jun 04 08:2 0:51 EDT 2023 Respiratory rate 18.00 /min Sat Jun 04 08:2 0:51 EDT 2023 Systolic Blood Pressure 139.00 mm[Hg] ThuJun 03 20:10:12 EDT 2023 Diastolic Blood Pressure 71.00 mm[Hg] ThuJun 03 20:10:12 EDT 2023 Heart Rate 86.00 /min ThuJun 03 20:10 :12 EDT 2023 Body temperature 98.20 [degF] ThuJun 03 20:1 0:12 EDT 2023 Respiratory rate 18.00 /min ThuJun 03 20:1 0:12 EDT 2023 Body weight 166.60 [lb_av] ThuJun 03 10:35 :01 EDT 2023 Systolic Blood Pressure 133.00 mm[Hg] ThuJun 03 10:30:38 EDT 2023 Diastolic Blood Pressure 68.00 mm[Hg] ThuJun 03 10:30:38 EDT 2023 Body temperature 98.00 [degF] ThuJun 03 10:3 0:38 EDT 2023 Respiratory rate 18.00 /min ThuJun 03 10:3 0:38 EDT 2023 Heart Rate 84.00 /min ThuJun 03 10:30 :38 EDT 2023 Systolic Blood Pressure 133.00 mm[Hg] ThuJun 03 09:38:38 EDT 2023 Diastolic Blood Pressure 68.00 mm[Hg] ThuJun 03 09:38:38 EDT 2023 Systolic Blood Pressure 133.00 mm[Hg] ThuJun 03 09:38:38 EDT 2023 Diastolic Blood Pressure 68.00 mm[Hg] ThuJun 03 09:38:38 EDT 2023 Systolic Blood Pressure 140.00 mm[Hg] ThuJun 02 20:33:40 EDT 2023 Diastolic Blood Pressure 71.00 mm[Hg] ThuJun 02 20:33:40 EDT 2023 Heart Rate 84.00 /min ThuJun 02 20:33 :40 EDT 2023 Body temperature 99.30 [degF] ThuJun 02 20:3 3:40 EDT 2023 Respiratory rate 18.00 /min ThuJun 02 20:3 3:40 EDT 2023 Body weight 166.60 [lb_av] ThuJun 02 10:45 :37 EDT 2023 Systolic Blood Pressure 156.00 mm[Hg] ThuJun 02 10:38:04 EDT 2023 Diastolic Blood Pressure 71.00 mm[Hg] ThuJun 02 10:38:04 EDT 2023 Heart Rate 86.00 /min ThuJun 02 10:38 :04 EDT 2023 Body temperature 97.30 [degF] ThuJun 02 10:3 8:04 EDT 2023 Respiratory rate 18.00 /min ThuJun 02 10:3 8:04 EDT 2023 Systolic Blood Pressure 156.00 mm[Hg] ThuJun 02 09:33:22 EDT 2023 Diastolic Blood Pressure 71.00 mm[Hg] ThuJun 02 09:33:22 EDT 2023 Systolic Blood Pressure 156.00 mm[Hg] ThuJun 02 09:33:22 EDT 2023 Diastolic Blood Pressure 71.00 mm[Hg] ThuJun 02 09:33:22 EDT 2023 Systolic Blood Pressure 149.00 mm[Hg] ThuJun 01 23:05:22 EDT 2023 Diastolic Blood Pressure 65.00 mm[Hg] ThuJun 01 23:05:22 EDT 2023 Heart Rate 90.00 /min ThuJun 01 23:05 :22 EDT 2023 Body temperature 97.50 [degF] ThuJun 01 23:0 5:22 EDT 2023 Respiratory rate 18.00 /min ThuJun 01 23:0 5:22 EDT 2023 Body weight 165.80 [lb_av] ThuJun 01 14:24 :11 EDT 2023 Systolic Blood Pressure 158.00 mm[Hg] ThuJun 01 09:07:20 EDT 2023 Diastolic Blood Pressure 83.00 mm[Hg] ThuJun 01 09:07:20 EDT 2023 Systolic Blood Pressure 158.00 mm[Hg] ThuJun 01 09:07:20 EDT 2023 Diastolic Blood Pressure 83.00 mm[Hg] ThuJun 01 09:07:20 EDT 2023 Systolic Blood Pressure 158.00 mm[Hg] ThuJun 01 09:07:20 EDT 2023 Diastolic Blood Pressure 83.00 mm[Hg] ThuJun 01 09:07:20 EDT 2023 Heart Rate 82.00 /min ThuJun 01 09:07 :20 EDT 2023 Body temperature 98.30 [degF] ThuJun 01 09:0 7:20 EDT 2023 Respiratory rate 18.00 /min ThuJun 01 09:0 7:20 EDT 2023 Systolic Blood Pressure 145.00 mm[Hg] ThuMay 31 21:39:16 EDT 2023 Diastolic Blood Pressure 65.00 mm[Hg] ThuMay 31 21:39:16 EDT 2023 Heart Rate 83.00 /min ThuMay 31 21:39 :16 EDT 2024 Body temperature 97.80 [degF] ThuMay 31 21:3 9:16 EDT 4 Respiratory rate 18.00 /min ThuMay 31 21:3 9:16 EDT 4 Systolic Blood Pressure 159.00 mm[Hg] ThuMay 31 09:10:12 EDT 2023 Diastolic Blood Pressure 86.00 mm[Hg] ThuMay 31 09:10:12 EDT 2023 Systolic Blood Pressure 159.00 mm[Hg] ThuMay 31 09:10:12 EDT 202 Diastolic Blood Pressure 86.00 mm[Hg] ThuMay 31 09:10:12 EDT 2023 Systolic Blood Pressure 159.00 mm[Hg] ThuMay 31 09:05:41 EDT 2023 Diastolic Blood Pressure 86.00 mm[Hg] ThuMay 31 09:05:41 EDT 4 Body weight 165.80 [lb_av] ThuMay 31 09:05 :41 EDT 4 Heart Rate 80.00 /min ThuMay 31 09:05 :41 EDT 4 Body temperature 98.00 [degF] ThuMay 31 09:0 5:41 EDT 4 Respiratory rate 20.00 /min ThuMay 31 09:0 5:41 EDT 4 Systolic Blood Pressure 122.00 mm[Hg] ThuMay 30 23:53:52 EDT 2023 Diastolic Blood Pressure 60.00 mm[Hg] ThuMay 30 23:53:52 EDT 4 Heart Rate 85.00 /min ThuMay 30 23:53 :52 EDT 4 Body temperature 98.20 [degF] ThuMay 30 23:5 3:52 EDT 2023 Respiratory rate 18.00 /min ThuMay 30 23:5 3:52 EDT 2024 Body weight 167.20 [lb_av] ThuMay 30 14:33 :07 EDT 2023 Systolic Blood Pressure 146.00 mm[Hg] ThuMay 30 09:40:08 EDT 2023 Diastolic Blood Pressure 71.00 mm[Hg] ThuMay 30 09:40:08 EDT 4 Systolic Blood Pressure 146.00 mm[Hg] ThuMay 30 09:40:08 EDT 202 Diastolic Blood Pressure 71.00 mm[Hg] ThuMay 30 09:40:08 EDT 202 Systolic Blood Pressure 146.00 mm[Hg] ThuMay 30 09:40:08 EDT 2023 Diastolic Blood Pressure 71.00 mm[Hg] ThuMay 30 09:40:08 EDT 4 Heart Rate 82.00 /min ThuMay 30 09:40 :08 EDT 2023 Body temperature 97.70 [degF] ThuMay 30 09:4 0:08 EDT 2023 Respiratory rate 18.00 /min ThuMay 30 09:4 0:08 EDT 2023 Systolic Blood Pressure 138.00 mm[Hg] ThuMay 30 00:03:23 EDT 202 Diastolic Blood Pressure 71.00 mm[Hg] ThuMay 30 00:03:23 EDT 202 Heart Rate 87.00 /min ThuMay 30 00:03 :23 EDT 202 Body temperature 98.60 [degF] ThuMay 30 00:0 3:23 EDT 2023 Respiratory rate 18.00 /min ThuMay 30 00:0 3:23 EDT 4 Systolic Blood Pressure 150.00 mm[Hg] [place] May 29 09:08:34 EDT 2023 Diastolic Blood Pressure 82.00 mm[Hg] [place] May 29 09:08:34 EDT 202 Systolic Blood Pressure 150.00 mm[Hg] ThuMay 29 09:08:34 EDT 202 Diastolic Blood Pressure 82.00 mm[Hg] [place] May 29 09:08:34 EDT 2023 Systolic Blood Pressure 150.00 mm[Hg] ThuMay 29 09:08:34 EDT 202 Diastolic Blood Pressure 82.00 mm[Hg] [place] May 29 09:08:34 EDT 2023 Body weight 166.00 [lb_av] [place] May 29 09:08 :34 EDT 2023 Heart Rate 83.00 /min ThuMay 29 09:08 :34 EDT 2023 Body temperature 97.70 [degF] [place] May 29 09:0 8:34 EDT 2023 Respiratory rate 20.00 /min [place] May 29 09:0 8:34 EDT 2023 Systolic Blood Pressure 127.00 mm[Hg] [facility] May 28 23:10:35 EDT 2023 Diastolic Blood Pressure 60.00 mm[Hg] [facility] May 28 23:10:35 EDT 2023 Heart Rate 102.00 /min [facility] May 28 23:10 :35 EDT 2023 Body temperature 98.10 [degF] [facility] May 28 23:1 0:35 EDT 2023 Respiratory rate 20.00 /min [facility] May 28 23:1 0:35 EDT 2023 Body weight 168.00 [lb_av] Sat May 06 10:10 :53 EDT 2023 Systolic Blood Pressure 159.00 mm[Hg] Sat May 06 09:34:25 EDT 2023 Diastolic Blood Pressure 80.00 mm[Hg] Sat May 06 09:34:25 EDT 2023 Systolic Blood Pressure 159.00 mm[Hg] Sat May 28 09:34:25 EDT 2023 Diastolic Blood Pressure 80.00 mm[Hg] Sat May 28 09:34:25 EDT 2023 Systolic Blood Pressure 159.00 mm[Hg] Sat May 28 08:47:47 EDT 2023 Diastolic Blood Pressure 80.00 mm[Hg] Sat May 28 08:47:47 EDT 2023 Heart Rate 85.00 /min [facility] May 28 08:47 :47 EDT 2023 Body temperature 97.70 [degF] ThuMay 28 08:4 7:47 EDT 2023 Respiratory rate 20.00 /min ThuMay 28 08:4 7:47 EDT 2023 Systolic Blood Pressure 119.00 mm[Hg] ThuMay 27 20:42:33 EDT 2023 Diastolic Blood Pressure 53.00 mm[Hg] ThuMay 27 20:42:33 EDT 2023 Heart Rate 90.00 /min ThuMay 27 20:42 :33 EDT 2023 Body temperature 97.70 [degF] ThuMay 27 20:4 2:33 EDT 2023 Respiratory rate 20.00 /min ThuMay 27 20:4 2:33 EDT 2023 Body weight 168.00 [lb_av] ThuMay 27 14:21 :12 EDT 2023 Systolic Blood Pressure 142.00 mm[Hg] ThuMay 27 09:19:17 EDT 2023 Diastolic Blood Pressure 65.00 mm[Hg] ThuMay 27 09:19:17 EDT 2023 Systolic Blood Pressure 142.00 mm[Hg] ThuMay 27 09:19:17 EDT 2023 Diastolic Blood Pressure 65.00 mm[Hg] ThuMay 27 09:19:17 EDT 2023 Systolic Blood Pressure 142.00 mm[Hg] ThuMay 27 09:19:17 EDT 2023 Diastolic Blood Pressure 65.00 mm[Hg] ThuMay 27 09:19:17 EDT 2023 Heart Rate 92.00 /min ThuMay 27 09:19 :17 EDT 2023 Body temperature 98.20 [degF] ThuMay 27 09:1 9:17 EDT 2023 Respiratory rate 20.00 /min ThuMay 27 09:1 9:17 EDT 2023 Systolic Blood Pressure 131.00 mm[Hg] ThuMay 26 19:49:40 EDT 2023 Diastolic Blood Pressure 66.00 mm[Hg] ThuMay 26 19:49:40 EDT 2023 Heart Rate 83.00 /min ThuMay 26 19:49 :40 EDT 2023 Body temperature 97.30 [degF] ThuMay 26 19:4 9:40 EDT 2023 Respiratory rate 19.00 /min ThuMay 26 19:4 9:40 EDT 2023 Body weight 167.40 [lb_av] ThuMay 26 12:38 :05 EDT 2023 Systolic Blood Pressure 129.00 mm[Hg] ThuMay 26 09:11:33 EDT 2023 Diastolic Blood Pressure 68.00 mm[Hg] ThuMay 26 09:11:33 EDT 2023 Systolic Blood Pressure 129.00 mm[Hg] ThuMay 26 09:11:33 EDT 2023 Diastolic Blood Pressure 68.00 mm[Hg] ThuMay 26 09:11:33 EDT 2023 Systolic Blood Pressure 129.00 mm[Hg] ThuMay 26 09:11:33 EDT 2023 Diastolic Blood Pressure 68.00 mm[Hg] ThuMay 26 09:11:33 EDT 2023 Heart Rate 87.00 /min ThuMay 26 09:11 :33 EDT 2023 Body temperature 98.40 [degF] ThuMay 26 09:1 1:33 EDT 2023 Respiratory rate 18.00 /min ThuMay 26 09:1 1:33 EDT 2023 Systolic Blood Pressure 121.00 mm[Hg] ThuMay 26 01:56:32 EDT 2023 Diastolic Blood Pressure 71.00 mm[Hg] ThuMay 26 01:56:32 EDT 2023 Heart Rate 86.00 /min ThuMay 26 01:56 :32 EDT 2023 Body temperature 98.40 [degF] ThuMay 26 01:5 6:32 EDT 2023 Respiratory rate 20.00 /min ThuMay 26 01:5 6:32 EDT 2023 Body weight 167.60 [lb_av] ThuMay 25 14:20 :53 EDT 2023 Systolic Blood Pressure 136.00 mm[Hg] ThuMay 25 09:23:10 EDT 2023 Diastolic Blood Pressure 69.00 mm[Hg] ThuMay 25 09:23:10 EDT 2023 Systolic Blood Pressure 136.00 mm[Hg] ThuMay 25 09:23:10 EDT 2023 Diastolic Blood Pressure 69.00 mm[Hg] ThuMay 25 09:23:10 EDT 2023 Systolic Blood Pressure 136.00 mm[Hg] ThuMay 25 08:49:38 EDT 2023 Diastolic Blood Pressure 69.00 mm[Hg] ThuMay 25 08:49:38 EDT 2023 Heart Rate 90.00 /min ThuMay 25 08:49 :38 EDT 2023 Body temperature 97.90 [degF] ThuMay 25 08:4 9:38 EDT 2023 Respiratory rate 20.00 /min ThuMay 25 08:4 9:38 EDT 2023 Systolic Blood Pressure 126.00 mm[Hg] ThuMay 24 23:23:30 EDT 2023 Diastolic Blood Pressure 61.00 mm[Hg] ThuMay 24 23:23:30 EDT 2023 Heart Rate 88.00 /min ThuMay 24 23:23 :30 EDT 2023 Body temperature 96.40 [degF] ThuMay 24 23:2 3:30 EDT 2023 Respiratory rate 20.00 /min ThuMay 24 23:2 3:30 EDT 2023 Body weight 167.80 [lb_av] ThuMay 24 09:53 :25 EDT 2023 Systolic Blood Pressure 147.00 mm[Hg] ThuMay 24 09:15:44 EDT 2023 Diastolic Blood Pressure 67.00 mm[Hg] ThuMay 24 09:15:44 EDT 2023 Systolic Blood Pressure 147.00 mm[Hg] ThuMay 24 09:15:44 EDT 2023 Diastolic Blood Pressure 67.00 mm[Hg] ThuMay 24 09:15:44 EDT 2023 Systolic Blood Pressure 147.00 mm[Hg] ThuMay 24 08:41:33 EDT 2023 Diastolic Blood Pressure 67.00 mm[Hg] ThuMay 24 08:41:33 EDT 2023 Heart Rate 98.00 /min ThuMay 24 08:41 :33 EDT 2024 Body temperature 98.60 [degF] ThuMay 24 08:4 1:33 EDT 4 Respiratory rate 18.00 /min ThuMay 24 08:4 1:33 EDT 4 Systolic Blood Pressure 151.00 mm[Hg] ThuMay 23 23:01:32 EDT 4 Diastolic Blood Pressure 81.00 mm[Hg] ThuMay 23 23:01:32 EDT 4 Heart Rate 82.00 /min ThuMay 23 23:01 :32 EDT 4 Body temperature 98.40 [degF] ThuMay 23 23:0 1:32 EDT 2023 Respiratory rate 17.00 /min ThuMay 23 23:0 1:32 EDT 4 Body weight 167.20 [lb_av] ThuMay 23 10:04 :36 EDT 2023 Systolic Blood Pressure 139.00 mm[Hg] ThuMay 23 09:16:41 EDT 4 Diastolic Blood Pressure 67.00 mm[Hg] ThuMay 23 09:16:41 EDT 4 Systolic Blood Pressure 139.00 mm[Hg] ThuMay 23 09:16:41 EDT 4 Diastolic Blood Pressure 67.00 mm[Hg] ThuMay 23 09:16:41 EDT 4 Systolic Blood Pressure 139.00 mm[Hg] ThuMay 23 09:16:41 EDT 4 Diastolic Blood Pressure 67.00 mm[Hg] ThuMay 23 09:16:41 EDT 4 Heart Rate 97.00 /min ThuMay 23 09:16 :41 EDT 4 Body temperature 97.90 [degF] ThuMay 23 09:1 6:41 EDT 4 Respiratory rate 18.00 /min ThuMay 23 09:1 6:41 EDT 4 Systolic Blood Pressure 128.00 mm[Hg] ThuMay 22 20:36:59 EDT 2023 Diastolic Blood Pressure 56.00 mm[Hg] ThuMay 22 20:36:59 EDT 2023 Heart Rate 92.00 /min ThuMay 22 20:36 :59 EDT 2023 Body temperature 98.00 [degF] ThuMay 22 20:3 6:59 EDT 2023 Respiratory rate 22.00 /min ThuMay 22 20:3 6:59 EDT 2023 Body weight 168.20 [lb_av] ThuMay 22 16:26 :56 EDT 2023 Systolic Blood Pressure 139.00 mm[Hg] ThuMay 22 10:18:14 EDT 2023 Diastolic Blood Pressure 59.00 mm[Hg] [place] 30 10:18:14 EDT 2023 Heart Rate 94.00 /min [place] 30 10:18 :14 EDT 2023 Body temperature 98.10 [degF] [place] 30 10:1 8:14 EDT 2023 Respiratory rate 18.00 /min [place] 30 10:1 8:14 EDT 2023 Systolic Blood Pressure 139.00 mm[Hg] [place] 30 10:17:34 EDT 2023 Diastolic Blood Pressure 59.00 mm[Hg] [place] 30 10:17:34 EDT 2023 Systolic Blood Pressure 139.00 mm[Hg] [place] 30 10:17:34 EDT 2023 Diastolic Blood Pressure 59.00 mm[Hg] [place] 30 10:17:34 EDT 2023 Systolic Blood Pressure 116.00 mm[Hg] Sat [place] 29 22:48:52 EDT 2023 Diastolic Blood Pressure 58.00 mm[Hg] Sat [place] 29 22:48:52 EDT 2023 Heart Rate 92.00 /min Sat [place] 29 22:48 :52 EDT 2023 Body temperature 97.80 [degF] Sat [place] 29 22:4 8:52 EDT 2023 Respiratory rate 18.00 /min Sat [place] 29 22:4 8:52 EDT 2023 Systolic Blood Pressure 116.00 mm[Hg] Sat [place] 29 10:06:09 EDT 2023 Diastolic Blood Pressure 64.00 mm[Hg] Sat [place] 29 10:06:09 EDT 2023 Body weight 166.80 [lb_av] Sat [place] 29 10:06 :09 EDT 2023 Heart Rate 101.00 /min Sat [place] 29 10:06 :09 EDT 2023 Body temperature 98.00 [degF] Sat [place] 29 10:0 6:09 EDT 2023 Respiratory rate 18.00 /min Sat [place] 29 10:0 6:09 EDT 2023 Systolic Blood Pressure 116.00 mm[Hg] Sat [place] 29 09:17:44 EDT 2023 Diastolic Blood Pressure 64.00 mm[Hg] Sat [place] 29 09:17:44 EDT 2023 Systolic Blood Pressure 116.00 mm[Hg] Sat [place] 29 09:17:44 EDT 2023 Diastolic Blood Pressure 64.00 mm[Hg] Sat [place] 29 09:17:44 EDT 2023 Systolic Blood Pressure 110.00 mm[Hg] ThuMay 21 00:34:46 EDT 2023 Diastolic Blood Pressure 54.00 mm[Hg] ThuMay 21 00:34:46 EDT 2023 Heart Rate 93.00 /min ThuMay 21 00:34 :46 EDT 2023 Body temperature 98.70 [degF] ThuMay 21 00:3 4:46 EDT 2023 Respiratory rate 18.00 /min ThuMay 21 00:3 4:46 EDT 2023 Systolic Blood Pressure 134.00 mm[Hg] ThuMay 20 13:24:36 EDT 2023 Diastolic Blood Pressure 68.00 mm[Hg] ThuMay 20 13:24:36 EDT 2023 Body weight 165.40 [lb_av] ThuMay 20 13:24 :36 EDT 2023 Heart Rate 90.00 /min ThuMay 20 13:24 :36 EDT 2023 Body temperature 97.50 [degF] ThuMay 20 13:2 4:36 EDT 2023 Respiratory rate 18.00 /min ThuMay 20 13:2 4:36 EDT 2023 Systolic Blood Pressure 134.00 mm[Hg] ThuMay 20 09:41:24 EDT 2023 Diastolic Blood Pressure 68.00 mm[Hg] ThuMay 20 09:41:24 EDT 2023 Systolic Blood Pressure 134.00 mm[Hg] ThuMay 20 09:41:24 EDT 2023 Diastolic Blood Pressure 68.00 mm[Hg] ThuMay 20 09:41:24 EDT 2023 Systolic Blood Pressure 123.00 mm[Hg] [facility] May 19 20:03:58 EDT 2023 Diastolic Blood Pressure 65.00 mm[Hg] [facility] May 19 20:03:58 EDT 2023 Heart Rate 101.00 /min [facility] May 19 20:03 :58 EDT 2023 Body temperature 99.10 [degF] [facility] May 19 20:0 3:58 EDT 2023 Respiratory rate 18.00 /min [facility] May 19 20:0 3:58 EDT 2023 Systolic Blood Pressure 131.00 mm[Hg] [facility] May 19 11:41:42 EDT 2023 Diastolic Blood Pressure 60.00 mm[Hg] [facility] May 19 11:41:42 EDT 2023 Body weight 164.40 [lb_av] ThuMay 19 11:41 :42 EDT 2023 Heart Rate 87.00 /min ThuMay 19 11:41 :42 EDT 2023 Body temperature 97.90 [degF] ThuMay 19 11:4 1:42 EDT 2023 Respiratory rate 18.00 /min ThuMay 19 11:4 1:42 EDT 2023 Systolic Blood Pressure 131.00 mm[Hg] ThuMay 19 10:00:22 EDT 2023 Diastolic Blood Pressure 60.00 mm[Hg] ThuMay 19 10:00:22 EDT 2023 Systolic Blood Pressure 131.00 mm[Hg] ThuMay 19 10:00:22 EDT 2023 Diastolic Blood Pressure 60.00 mm[Hg] ThuMay 19 10:00:22 EDT 2023 Systolic Blood Pressure 130.00 mm[Hg] ThuMay 18 22:41:27 EDT 2023 Diastolic Blood Pressure 59.00 mm[Hg] ThuMay 18 22:41:27 EDT 2023 Heart Rate 94.00 /min ThuMay 18 22:41 :27 EDT 2023 Body temperature 98.40 [degF] ThuMay 18 22:4 1:27 EDT 2023 Respiratory rate 20.00 /min ThuMay 18 22:4 1:27 EDT 2023 Body weight 162.00 [lb_av] ThuMay 18 12:48 :25 EDT 2023 Systolic Blood Pressure 152.00 mm[Hg] ThuMay 18 09:05:46 EDT 2023 Diastolic Blood Pressure 64.00 mm[Hg] ThuMay 18 09:05:46 EDT 2023 Systolic Blood Pressure 152.00 mm[Hg] ThuMay 18 09:05:46 EDT 2023 Diastolic Blood Pressure 64.00 mm[Hg] ThuMay 18 09:05:46 EDT 2023 Systolic Blood Pressure 152.00 mm[Hg] ThuMay 18 09:05:46 EDT 2023 Diastolic Blood Pressure 64.00 mm[Hg] ThuMay 18 09:05:46 EDT 2023 Heart Rate 67.00 /min ThuMay 18 09:05 :46 EDT 2023 Body temperature 98.70 [degF] ThuMay 18 09:0 5:46 EDT 2023 Respiratory rate 18.00 /min ThuMay 18 09:0 5:46 EDT 2023 Systolic Blood Pressure 123.00 mm[Hg] ThuMay 18 00:07:45 EDT 2023 Diastolic Blood Pressure 64.00 mm[Hg] ThuMay 18 00:07:45 EDT 2023 Heart Rate 89.00 /min ThuMay 18 00:07 :45 EDT 2023 Body temperature 98.20 [degF] ThuMay 18 00:0 7:45 EDT 2023 Respiratory rate 18.00 /min ThuMay 18 00:0 7:45 EDT 2023 Systolic Blood Pressure 123.00 mm[Hg] ThuMay 17 14:49:00 EDT 2023 Diastolic Blood Pressure 64.00 mm[Hg] ThuMay 17 14:49:00 EDT 2023 Heart Rate 89.00 /min ThuMay 17 14:49 :00 EDT 2023 Pulse Oximetry 94.00 % ThuMay 17 14:49 :00 EDT 2023 Body Height 63.00 [in_i] ThuMay 17 14:49 :00 EDT 2023 Body temperature 98.20 [degF] ThuMay 17 14:4 9:00 EDT 2023 Respiratory rate 18.00 /min ThuMay 17 14:4 9:00 EDT 2023 Reason for Referral
--- OUTSIDE RECORDS SUMMARY | 2025-04-28 15:57 | XMS_ITS | Clinical Summary ---
Author Organization [facility] Address [address] [place] [address] Care Team Providers Care Trauma Doctor Name Role Phone Thomas Christina MD Primary Care Provider Source Comments [facility],non-owned Affiliates and Associated Physician Practices is amultiple site organization consisting of ambulatory clinics and hospital sitesin [place], [place], [place] and [place]. This disclosure is being madepursuant to the Care Everywhere program and may not contain all information available regarding this patient. Last updated 18.[facility] Allergies No known active allergies Medications * Be aware that medications may not be up to date on this document. Alwaysverify current medications with the patient. losartan (Cozaar) 100 MG tablet Take 1 (one) tablet by mouth once daily 03/18/2023 Active hydroCHLOROthia zide (Hydrodiuril) 25 MG tablet Take 1 (one) [...] heating? Not hard at all 05/14/2024 [facility] of Occupat ional Health - Occupational Stress [...] place to sleep or slept in a correction (including now)? 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 Gender Identity Not on file Sexual Orientation [...] 4:00 AM CDT Height 160 cm (5' 2.99) 05/09/2024 4:49 PM CDT Body Mass Index [...] VACCINE ( - 2023-2 5 season) 2024 DEPRESSION SCREENING 11/23/2024 INFLUENZA VACCINE (Season Ended) 2025 09/22/2022, 09/28/2018 HEPATITIS B VACCINE Aged Out No longe r eligible based on patient's age to complete this topic HIB VACCINE Aged Out No longer eligi ble based on patient's age to complete this topic HPV VACCINE Aged Out No longer eligi ble based on patient's age to complete this topic MENINGOCOCCAL (Group B) VACCINE SHARED DECISION-MAKING Aged Out No longer eligible based on patient's age to complete this topic MENINGOCOCCAL GROUPS A/C/Y/W VACCINE Aged Out No longer eligible b ased on patient's age to complete this topic Insurance MEDICARE [facility] Advance Directives * LIMITED RESUSCITATION-PRIOR AND AFTER ARREST (Latest Code Status on File) Date Activated Date Inactivated Comments 05/07/2024 8:24 PM 05/17/2024 1:47 PM Question Answer Comments Limited Resuscitation: No Chest Compress ionNo Intubation, No Invasive Ventilation Care Teams Trauma Doctor Relationship Specialty Start Date End Date Thomas Christina MD [address] [place] [id number] PCP - General 04/10/11
--- OUTSIDE RECORDS SUMMARY | 2025-04-28 15:57 | XMS_ITS | Continuity of Care Document ---
Author Organization [facility] Address [address] [place] [address] Phone Care Team Providers Care Rn Emergency Name Role Phone Keith Del Rosario Unavailable Unavailable Advance Directives Directive Yes / No Effective Date File Name No Information Encounters Encounter Description Practice Location Reason(s) For Visit Diagnoses Date Provider Providers Copied on Encounter [facility], [address], [place], [place], [id number], [place] tel:[phone] [facility] No Information [phone] Doisy Edward. [address] , [address], [place], [address], [place]. tel:[phone] Referring Provider: Timi Chaves, [address] [facility] [address], [place], [address]. tel:[phone] Family History Family Member Type Diagnosis Age [...]
--- OUTSIDE RECORDS SUMMARY | 2025-04-28 15:57 | XMS_ITS | Clinical Summary ---
Author Organization [facility] Address [address] [place] [address] Care Team Providers Care Combatant Diver Qualified Name Role Phone Unavailable Primary Care Provider [...] Encounters Date Type Department Care Team Description 04/13/2025 External Device Data ST[facility] ABSTRACTION Provider, Abstract 04/12/2025 External Device Data [facility] ABSTRACTION Provider, Abstract 04/11/2025 External Device Data [facility] ABSTRACTION Provider, Abstract 03/28/2025 External Device Data [facility] ABSTRACTION Provider, Abstract 03/07/2025 External Device Data [facility] ABSTRACTION Provider, Abstract 02/08/2025 External Device Data [facility] ABSTRACTION Provider, Abstract 02/01/2025 3:30 PM CDT Telephone Check Up [facility] Oncology and Hematology - Kenneth [address] [place] [address] Edmond Adame MD Pancreatic cyst (Primary Dx) 01/30/2025 Orders Only [facility] - Kenneth [address] [place] [address] Edmond Adame MD 01/28/2025 External Device Data ST[facility] ABSTRACTION Provider, Abstract 01/27/2025 External Device Data [facility] ABSTRACTION Provider, Abstract 01/27/2025 Orders Only [facility] Oncology [facility] Hematology - Kenneth [address] [place] [phone] Edmond Adame MD from Last 3 Months Family History Medical [...] on file 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 Gender Identity Not on file Sexual Orientation Not on file Last Filed Vital Signs Vital Sign Reading Time Taken Comments Blood Pressure 168/94 01/16/2025 3:12 PM PRESS SETUP OPERATOR Pulse 75 01/16/2025 3:07 PM PRESS SETUP OPERATOR Temperature 36.4 C (97.5 F) 01/16/2025 3:07 PM PRESS SETUP OPERATOR Respiratory Rate 15 01/16/2025 3:07 PM PRESS SETUP OPERATOR Oxygen Saturation 97% 01/16/2025 3:07 PM PRESS SETUP OPERATOR Inhaled Oxygen Concentration - - Weight 73.4 kg (161 lb 12.8 oz) 01/16/2025 3:07 PM PRESS SETUP OPERATOR Height 160 cm (5' 3) 01/16/2025 3:07 PM PRESS SETUP OPERATOR Body Mass Index 28.66 01/16/2025 3:07 PM PRESS SETUP OPERATOR Plan of Treatment Upcoming Encounters Date Type Department Care Team (Late st Contact Info) Description 02/06/2026 10:00 AM CDT Office Visit [facility] Oncology and Hematology - Kenneth [address] [place] [address] Edmond Adame MD [address] [place] [address] Health Maintenance Due Date Last Done Comments DTAP/TDAP/TD VACCINES (1 - Tdap) 1955 PNEUMOCOCCAL VACCINE 50+ YEARS (1 of 1 - PCV) 05/05/19 86 ZOSTER VACCINE (1 of 2) 1986 OSTEOPOROSIS SCREENING 2001 RSV VACCINE (60+ or ) (1 - 1-dose 75+ series) 2011 INFLUENZA VACCINE (#1) 2024 Procedures Procedure Name Priority Date/Time Associated Diagnosis Comments US VENOUS DOPPLER LEG LEFT Routine 01/27/2025 11:[address] ABDOMEN PELVIS W CONTRAST Routine 01/27/2025 11:02 AM PRESS SETUP OPERATOR from Last 3 Months Results * US VENOUS DOPPLER LEG LEFT (01/27/2025 11:03 AM PRESS SETUP OPERATOR) Anatomical Region Laterality Modality Lower Extremity Ultrasound us Edmond Adame MD US ORDERABLES Final Result * CT ABDOMEN PELVIS W CONTRAST (01/27/2025 11:02 AM PRESS SETUP OPERATOR) Anatomical Region Laterality Modality Abdomen Computed Tomogra phy us Edmond Adame MD CT ORDERABLES Final Result from Last 3 Months Insurance MEDICARE PART A AND B [facility]LY [facility] [place] [address]
--- OUTSIDE RECORDS SUMMARY | 2025-04-28 15:57 | XMS_ITS ---
Author Name Auto Generated, Auto Generated Organization 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 * HUGORudy JohnsonHerber Sophia will be involved in goal development to the best of his or her ability.* Code: * Start Date: ThuMay 20 00:00:00 EDT 2023 * End Date: * Text: LIONELSocial JohnsonHerber Cortes will be involved in goal development to the best of his or her ability. * LIONELSocial Johnson Cortes has family/friends who are supportive.* Code: * Start Date: ThuMay 20 00:00:00 EDT 2023 * End Date: * Text: Bruce Cortes has family/friends who are supportive. * Bruce Mckinneys mobility level is different than prior level due to current medical condition.* Code: * Start Date: ThuMay 20 00:00:00 EDT 2023 * End Date: * Text: Bruce Mckinneys mobility level is different than prior level due to current medical condition. * Bruce Cortes will be involved in discharge planning.* Code: * Start Date: ThuMay 20 00:00:00 EDT 2023 * End Date: * Text: Bruce Cortes will be involved in discharge planning. Resolved Concerns * Problem Anemia, unspecified* Code: [...] Blood Pressure 79.00 mm[Hg] ThuJun 07 10:39:07 EDT 2023 Heart Rate 84.00 /min ThuJun 07 10:39 [...] EDT 4 Systolic Blood Pressure 150.00 mm[Hg] [place] May 29 09:08:34 EDT 2023 Diastolic Blood Pressure 82.00 mm[Hg] [place] May 29 09:08:34 EDT 202 Systolic Blood Pressure 150.00 mm[Hg] ThuMay 29 09:08:34 EDT 202 Diastolic Blood Pressure 82.00 mm[Hg] [place] May 29 09:08:34 EDT 2023 Systolic Blood Pressure 150.00 mm[Hg] ThuMay 29 09:08:34 EDT 202 Diastolic Blood Pressure 82.00 mm[Hg] [place] May 29 09:08:34 EDT 2023 Body weight 166.00 [lb_av] [place] May 29 09:08 :34 EDT 2023 Heart Rate 83.00 /min ThuMay 29 09:08 :34 EDT 2023 Body temperature 97.70 [degF] [place] May 29 09:0 8:34 EDT 2023 Respiratory rate 20.00 /min [place] May 29 09:0 8:34 EDT 2023 Systolic Blood Pressure 127.00 mm[Hg] [facility] May 28 23:10:35 EDT 2023 Diastolic Blood Pressure 60.00 mm[Hg] [facility] May 28 23:10:35 EDT 2023 Heart Rate 102.00 /min [facility] May 28 23:10 :35 EDT 2023 Body temperature 98.10 [degF] [facility] May 28 23:1 0:35 EDT 2023 Respiratory rate 20.00 /min [facility] May 28 23:1 0:35 EDT [...] 08:47:47 EDT 2023 Heart Rate 85.00 /min [facility] May 28 08:47 :47 EDT [...] 3:58 EDT 2023 Respiratory rate 18.00 /min [facility] May 19 20:0 3:58 EDT 2023 Systolic Blood Pressure 131.00 mm[Hg] [facility] May 19 11:41:42 EDT 2023 Diastolic Blood Pressure 60.00 mm[Hg] [facility] May 19 11:41:42 EDT 2023 Body weight [...]
== END 2025-04-28 15:51 | disposition home or self-care (01) ==
PROVIDERS: Visit Provider Nurse Practitioner Family
DX: I48.91 Unspecified atrial fibrillation (principal); I10 Essential (primary) hypertension; E55.9 Vitamin D deficiency, unspecified; G62.9 Polyneuropathy, unspecified; Z78.9 Other specified health status; R26.81 Unsteadiness on feet; Z99.89 Dependence on other enabling machines and devices; E04.2 Nontoxic multinodular goiter
CPT/HCPCS: 76536

== ENCOUNTER 2025-05-25 12:05 | Outpatient (CLI) | payer MEDICARE, SELFPAY ==
--- NOTE | ~2025-05-25 | US_ITS ---
EXAMINATION: US THYROID BIOPSY DATE: 05/25/2025 17:12 CDT INDICATION: Nontoxic single thyroid nodule TECHNIQUE: The procedure for biopsy of the indeterminate thyroid nodule and its benefits and risks were explaine d to the patient. Potential risk included were not limited to bleeding, infection, and nondiagnostic specimen. The neck was prepped and draped in the usual sterile manner. 3 cc 1% lidocaine was used for local an esthesia. [7 passes were made with a 25G needle into the left-sided thyroid lesion. Appropriate nee dle location was documented with continuous sonographic guidance. The specimens were passed to the c ytopathologist in the room. All needles were removed and a sterile bandage applied over the biopsy site. The patient tolerated t he procedure without immediate complications or complaints. FINDINGS: Subsequent images demonstrate needles advanced into the lesion for biopsy. IMPRESSION: 1. Successful ultrasound guided biopsy of a left-sided lower lobe thyroid nodule. Pathology pending Reviewed, dictated and finalized at location A. IMPRESSION: 1. Successful ultrasound guided biopsy of a left-sided lower lobe thyroid nodu le. Pathology pending
--- OUTSIDE RECORDS SUMMARY | 2025-05-25 12:10 | XMS_ITS ---
Author Name Auto Generated, Auto Generated Organization [facility] ice Address [address] [place] [address] Phone [phone] Care Team Providers Care Occupational Rehabilitation Aide Name Role Phone Anay Mccann Unavailable Angel Lazo Unavailable [phone] Functional Status Mental Status Allergies and Intolerances Encounters Medications Problems Vital Signs Reason for Referral Past Medical History
--- OUTSIDE RECORDS SUMMARY | 2025-05-25 12:10 | XMS_ITS | Referral Summary ---
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
--- OUTSIDE RECORDS SUMMARY | 2025-05-25 12:10 | XMS_ITS | Clinical Summary ---
Author Organization [facility] Address [facility] [place] [address] Care Team Providers Care Candy Decorator Name Role Phone Unavailable Primary Care Provider [...] Td Vaccines ( 1 - Tdap) 1955 Pneumococcal Vaccine: 50+ Ye ars (1 of 1 - PCV) 1986 Zoster Vaccines (1 of 2) 1986 RSV Immunization or 60+ Years (1 - 1-dose 75+ series) 2011 COVID-19 Vaccine (2023-2 5 season) 2024 Meningococcal B Vaccine Aged Out No l onger eligible based on patient's age to complete this topic Meningococcal Vaccine Aged Out No beatriz leonel eligible based on patient's age to complete this topic RSV Immunizations Under 20 Months Aged Out No longer eligible based on patient's age to complete this topic
--- OUTSIDE RECORDS SUMMARY | 2025-05-25 12:10 | XMS_ITS | Clinical Summary ---
Author Organization [facility]andy [facility] Address [address] [place] [address] Care Team Providers Care Floorhand Name Role Phone Unavailable Primary Care Provider [...] Encounters Date Type Department Care Team Description 05/09/2025 External Device Data ST[facility] ABSTRACTION Provider, Abstract 04/13/2025 External Device Data STL ABSTRACTION Provider, Abstract 04/12/2025 External Device Data [facility] ABSTRACTION Provider, Abstract 04/11/2025 External Device Data [facility] ABSTRACTION Provider, Abstract 03/28/2025 External Device Data ST[facility] ABSTRACTION Provider, Abstract 03/07/2025 External Device Data STL ABSTRACTION Provider, Abstract from Last 3 Months Family History Medical [...] on file Legal Sex Female 10:17 AM 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 PRODUCE 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 Gender Identity Not on file Sexual Orientation Not on file Last Filed Vital Signs Vital Sign Reading Time Taken Comments Blood Pressure 168/94 01/16/2025 3:12 PM 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 PRODUCE SORTER Pulse 75 01/16/2025 3:07 PM 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 PRODUCE SORTER Temperature 36.4 C (97.5 F) 01/16/2025 3:07 PM 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 PRODUCE SORTER Respiratory Rate 15 01/16/2025 3:07 PM 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 PRODUCE SORTER Oxygen Saturation 97% 01/16/2025 3:07 PM 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 PRODUCE SORTER Inhaled Oxygen Concentration - - Weight 73.4 kg (161 lb 12.8 oz) 01/16/2025 3:07 PM 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 PRODUCE SORTER Height 160 cm (5' 3) 01/16/2025 3:07 PM 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 PRODUCE SORTER Body Mass Index 28.66 01/16/2025 3:07 PM 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 PRODUCE SORTER Plan of Treatment Upcoming Encounters Date Type Department Care Team (Late st Contact Info) Description 02/06/2026 10:00 AM CDT Office Visit [facility] Oncology and Hematology - Kenneth [address] [facility] [address] [place] [address] Edmond Adame MD [address] [address] [place] [address] Health Maintenance Due Date Last Done Comments DTAP/TDAP/TD VACCINES (1 - Tdap) 1955 PNEUMOCOCCAL VACCINE 50+ YEARS (1 of 1 - PCV) 05/05/19 86 ZOSTER VACCINE (1 of 2) 1986 OSTEOPOROSIS SCREENING 2001 RSV VACCINE (60+ or ) (1 - 1-dose 75+ series) 2011 INFLUENZA VACCINE (#1) 2024 Insurance MEDICARE PART A AND B [facility]
--- OUTSIDE RECORDS SUMMARY | 2025-05-25 12:10 | XMS_ITS | Clinical Summary ---
Author Organization [facility] [employer] Address [address] [place] [address] Care Team Providers Care Polymerization Engineer Name Role Phone Thomas Christina MD Primary Care Provider [phone] Source Comments [facility] [employer]non-owned Affiliates and Associated Physician Practices is amultiple site organization consisting of ambulatory clinics and hospital sitesin [place], [place], [place] and [place]. This disclosure is being madepursuant to the Care Everywhere program and may not contain all information available regarding this patient. Last updated 18.[facility] [employer] Allergies No known active allergies Medications * [...] and heating? Not hard at all 05/14/2024 [facility] Occupat ional Health - Occupational Stress [...] place to sleep or slept in a [facility] (including now)? 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
--- OUTSIDE RECORDS SUMMARY | 2025-05-25 12:10 | XMS_ITS ---
Author Name Auto Generated, Auto Generated Organization [facility] ices Address [address] [place] [address] Phone [phone] Care Team Providers Care Bisque Kiln Placer Name Role Phone [place], Anay Yana Unavailable Angel Lazo Unavailable [phone] Functional Status No Results Mental Status No Results Allergies and Intolerances Name Onset Date Reaction Severity No Known Allergies (Allergy) ThuMay 17 14:41:00 EDT 2023 Encounters Program Name Primary Diagnosis Admission Date/Time Dis charge Date/Time Industrial Waste Treatment Technician Care Facility [facility] ThuMay 17 09:30:00 EDT [...] 2023 * End Date: * Text: * custom tailor apprentice (current) use of anticoagulants* Code: * Start [...] EDT 2023 * End Date: * Text: Resolved Concerns * Problem Anemia, unspecified* Code: [...] 5:04 EDT 2023 Body weight 166.20 [lb_av] ThuJun 04 13:21 :14 EDT 2023 Systolic Blood Pressure 152.00 mm[Hg] ThuJun 04 08:20:51 EDT 2023 Diastolic Blood Pressure 71.00 mm[Hg] ThuJun 04 08:20:51 EDT 2023 Systolic Blood Pressure 152.00 mm[Hg] ThuJun 04 08:20:51 EDT 2023 Diastolic Blood Pressure 71.00 mm[Hg] Sat Aniket 13 08:20:51 EDT 2023 Systolic Blood Pressure 152.00 mm[Hg] Thu 13 08:20:51 EDT 2023 Diastolic Blood Pressure 71.00 mm[Hg] Thu 13 08:20:51 EDT 2023 Heart Rate 85.00 /min Thu 13 08:20 :51 EDT 2023 Body temperature 98.00 [degF] ThuJun 04 08:2 0:51 EDT 2023 Respiratory rate 18.00 /min ThuJun 04 08:2 0:51 EDT 2023 Systolic Blood [...] 68.00 mm[Hg] ThuJun 03 10:30:38 EDT 2023 Heart Rate 84.00 /min ThuJun 03 10:30 :38 EDT 2023 Body temperature 98.00 [degF] ThuJun 03 10:3 0:38 EDT 2023 Respiratory rate 18.00 /min ThuJun 03 10:3 0:38 EDT 2023 Systolic Blood Pressure 133.00 mm[Hg] [...] 83.00 /min ThuMay 31 21:39 :16 EDT 2023 Body temperature 97.80 [degF] ThuMay 31 21:3 9:16 EDT 2023 Respiratory rate 18.00 /min ThuMay 31 21:3 9:16 EDT 2023 Systolic Blood Pressure 159.00 mm[Hg] ThuMay 31 09:10:12 EDT 2023 Diastolic Blood Pressure 86.00 mm[Hg] ThuMay 31 09:10:12 EDT 2023 Systolic Blood Pressure 159.00 mm[Hg] ThuMay 31 09:10:12 EDT 2023 Diastolic Blood Pressure 86.00 mm[Hg] ThuMay 31 09:10:12 EDT 2023 Systolic Blood Pressure 159.00 mm[Hg] ThuMay 31 09:05:41 EDT 2023 Diastolic Blood Pressure 86.00 mm[Hg] ThuMay 31 09:05:41 EDT 2023 Body weight 165.80 [lb_av] ThuMay 31 09:05 :41 EDT 2023 Heart Rate 80.00 /min ThuMay 31 09:05 :41 EDT 2023 Body temperature 98.00 [degF] ThuMay 31 09:0 5:41 EDT 2023 Respiratory rate 20.00 /min ThuMay 31 09:0 5:41 EDT 2023 Systolic Blood Pressure 122.00 mm[Hg] ThuMay 30 23:53:52 EDT 2023 Diastolic Blood Pressure 60.00 mm[Hg] ThuMay 30 23:53:52 EDT 2023 Heart Rate 85.00 /min ThuMay 30 23:53 :52 EDT 2023 Body temperature 98.20 [degF] ThuMay 30 23:5 3:52 EDT 4 Respiratory rate 18.00 /min ThuMay 30 23:5 3:52 EDT 4 Body weight 167.20 [lb_av] ThuMay 30 14:33 :07 EDT 4 Systolic Blood Pressure 146.00 mm[Hg] ThuMay 30 09:40:08 EDT 4 Diastolic Blood Pressure 71.00 mm[Hg] ThuMay 30 09:40:08 EDT 2023 Systolic Blood Pressure 146.00 mm[Hg] ThuMay 30 09:40:08 EDT 202 Diastolic Blood Pressure 71.00 mm[Hg] ThuMay 30 09:40:08 EDT 2024 Systolic Blood Pressure 146.00 mm[Hg] ThuMay 30 09:40:08 EDT 2023 Diastolic Blood Pressure 71.00 mm[Hg] ThuMay 30 09:40:08 EDT 4 Heart Rate 82.00 /min ThuMay 30 09:40 :08 EDT 4 Body temperature 97.70 [degF] ThuMay 30 09:4 0:08 EDT 4 Respiratory rate 18.00 /min ThuMay 30 09:4 0:08 EDT 2023 Systolic Blood Pressure 138.00 mm[Hg] ThuMay 30 00:03:23 EDT 2023 Diastolic Blood Pressure 71.00 mm[Hg] ThuMay 30 00:03:23 EDT 2023 Heart Rate 87.00 /min ThuMay 30 00:03 :23 EDT 4 Body temperature 98.60 [degF] ThuMay 30 00:0 3:23 EDT 2023 Respiratory rate 18.00 /min ThuMay 30 00:0 3:23 EDT 2023 Systolic Blood Pressure 150.00 mm[Hg] ThuMay 29 09:08:34 EDT 2023 Diastolic Blood Pressure 82.00 mm[Hg] ThuMay 29 09:08:34 EDT 2023 Systolic Blood Pressure 150.00 mm[Hg] ThuMay 29 09:08:34 EDT 2023 Diastolic Blood Pressure 82.00 mm[Hg] ThuMay 29 09:08:34 EDT 2023 Systolic Blood Pressure 150.00 mm[Hg] ThuMay 29 09:08:34 EDT 2023 Diastolic Blood Pressure 82.00 mm[Hg] ThuMay 29 09:08:34 EDT 2023 Body weight 166.00 [lb_av] ThuMay 29 09:08 :34 EDT 202 Heart Rate 83.00 /min Sun May 29 09:08 :34 EDT 2023 Body temperature 97.70 [degF] Sun May 29 09:0 8:34 EDT 2023 Respiratory rate 20.00 /min Sun May 29 09:0 8:34 EDT 2023 Systolic Blood Pressure 127.00 mm[Hg] Sat May 28 23:10:35 EDT 2023 Diastolic Blood Pressure 60.00 mm[Hg] Sat May 28 23:10:35 EDT 2023 Heart Rate 102.00 /min Sat May 28 23:10 :35 EDT 2023 Body temperature 98.10 [degF] Sat May 28 23:1 0:35 EDT 2023 Respiratory rate 20.00 /min Sat May 28 23:1 0:35 EDT 2023 Body weight 168.00 [lb_av] Sat May 28 10:10 :53 EDT 2023 Systolic Blood Pressure [...] 08:47:47 EDT 2023 Heart Rate 85.00 /min Sat May 28 08:47 :47 EDT 2023 Body temperature 97.70 [degF] Sat May 28 08:4 7:47 EDT 2023 Respiratory rate [...] 168.00 [lb_av] ThuMay 27 14:21 :12 EDT 4 Systolic Blood Pressure 142.00 mm[Hg] ThuMay 27 [...] 87.00 /min ThuMay 26 09:11 :33 EDT 2024 Body temperature 98.40 [degF] ThuMay 26 09:1 [...] [lb_av] ThuMay 25 14:20 :53 EDT 2023 Reason for Referral Past Medical History Resolved Concerns * Problem Anemia, unspecified* Code: * Start Date: ThuMay 17 00:00:00 EDT 2023 * End Date: ThuJun 06 00:00:00 EDT 2023 * Problem Essential (primary) hypertension* Code: * Start Date: ThuMay 17 00:00:00 EDT 2023 * End Date: ThuJun 06 00:00:00 EDT 2023
--- OUTSIDE RECORDS SUMMARY | 2025-05-25 12:10 | XMS_ITS | Clinical Summary ---
Author Organization [facility] [address] Address [address] [place] [address] Care Team Providers Care Computer Operations Analyst Name Role Phone Delma Whitmore NP Primary Care Provider [phone] Allergies Active Allergy Reactions Criticality Noted Date [...] usitis, remote history of anemia, o; [place] [facility] [place] [facility] [place] Other Medical right total kne e replacement, left shoulder surger; Comments[place] [facility] [place] Chronic kidney disease Social History [...] on file Legal Sex Female 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 Care Teams Computer Operations Analyst Relationship Specialty Start Date End Date WinterDelma NP [address] [facility] [address] [id number] PCP - General Nurse Practitioner 10/27/23
--- OUTSIDE RECORDS SUMMARY | 2025-05-25 12:10 | XMS_ITS | Continuity of Care Document ---
Author Organization [facility] Address [address] [place] [address] Phone Care Team Providers Care Waist Presser Name Role Phone Keith Del Rosario Unavailable Unavailable Advance Directives Directive Yes / No Effective Date File Name No Information Encounters Encounter Description Practice Location Reason(s) For Visit Diagnoses Date Provider Providers Copied on Encounter [facility], [address], [place], [place], [id number], [place] tel:[phone] [facility] No Information [phone] Doisy Edward. [address] , [address], [place], [address], [place]. tel:[phone] Referring Provider: Timi Chaves, [address], [place], [address]. tel:[phone] Family History Family Member Type Diagnosis Age [...]
--- NOTE | 2025-05-25 13:28 | CY_PTH ---
PATIENT: Sophia Norman LOC: [facility] U#:[id number] AGE/SX: 89/F ROOM: RE05/25/[address]: Delma Whitmore APRN : 1935 BED: DIS: 05/25/2025 SPEC #: [id number] RECD: 05/25/25 14:02 STATUS: ELVIRA REYenny #: [id number] KEELEY: 05/25/25 13:[address]: Delma Whitmore DEPT: [facility] Cytology RECD BY: Lissy Baldwin Tissues: A - FNA Thyroid Procedures: Hematoxylin and Eosin Stain Cell Block Fine Needle Aspiration Evaluation Fine Needle Aspiration Pathologist
== END 2025-05-25 12:06 | disposition home or self-care (01) ==
PROVIDERS: PCP Nurse Practitioner Family; Visit Provider Nurse Practitioner Family
DX: E04.1 Nontoxic single thyroid nodule (principal)
CPT/HCPCS: 10005; 88172; 88173; 88305

== ENCOUNTER 2025-06-08 11:07 | Outpatient (CLI) | payer MEDICARE, SELFPAY ==
--- OUTSIDE RECORDS SUMMARY | 2025-06-08 11:25 | XMS_ITS | Referral Summary ---
Author Organization [facility] [address] Address [address] [place] [address] Care Team Providers Care Regional Trainer Name Role Phone Delma Whitmore NP Primary Care Provider [phone] Allergies Active Allergy Reactions Criticality Noted Date Comments Hydrocodone Oxycodone Medications losartan (COZAAR) 100 mg tablet Take 1 tablet (100 mg total) by mouth daily 3 Active multivit-sock lining examiner als/folic acid (CENTRUM ADULT 50 PLUS ORAL) Take by mouth Active coenzyme Q10 100 mg capsule Take 1 capsule (100 mg total) by mouth daily Active magnesium gluconate 200 mg tabletIndicati ons:hypomagnes emia 1 tablet (200 mg total) Active vitamin B complex capsule Take 1 capsule by mouth daily Active ascorbic acid (vitamin C) 1,000 mg tablet Take 1 tablet (1,000 mg total) by mouth daily Active hydroCHLOROthi azide (HYDRODIURIL) 25 mg tablet Take 1 tablet (25 mg total) by mouth daily 4 Active carvediloL (COREG) 6.25 mg tablet TAKE 1 TABLET BY MOUTH TWICE DAILY WITH MEALS 180 tablet 2 5 Active Eliquis 5 mg tablet Take 1 tablet by mouth twice daily 180 tablet 5 Active apixaban (Eliquis) 5 mg tablet Take 1 tablet by mouth twice daily 180 tablet 2 4 06/05/20 25 Discontinued Active Problems Problem Noted Date Diagnosed Date [...] on file 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
--- OUTSIDE RECORDS SUMMARY | 2025-06-08 11:26 | XMS_ITS | Clinical Summary ---
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 DOOR TECHNICIAN Gender Identity Not on file Sexual Orientation Not on file Last Filed Vital Signs Vital Sign Reading Time Taken Comments Blood Pressure 157/98 06/08/2025 10:04 AM CDT Pulse 81 06/08/2025 10:02 AM CDT Temperature 37 C (98.6 F) 06/08/2025 10:02 AM CDT Respiratory Rate 15 06/08/2025 10:02 AM CDT Oxygen Saturation 96% 06/08/2025 10:02 AM CDT Inhaled Oxygen Concentration - - Weight 77 kg (169 lb 12.8 oz) 06/08/2025 10:02 A M CDT Height 160 cm (5' 3) 01/16/2025 3:07 PM OVERHEAD DOOR TECHNICIAN Body Mass Index 30.08 01/16/2025 3:07 PM OVERHEAD DOOR TECHNICIAN Plan of Treatment Upcoming Encounters Date Type Department Care Team (Late st Contact Info) Description 06/22/2025 4:30 PM CDT Telephone Check Up [facility] Oncology and Hematology - Kenneth [address] [place] [address] Edmond Adame MD [address] [place] [address] 02/06/2026 10:00 AM CDT Office Visit [facility] Oncology and Hematology - Kenneth [address] [place] [address] Edmond Adame MD [facility] [place] [address] Health Maintenance Due Date Last Done Comments DTAP/TDAP/TD VACCINES (1 - Tdap) 1954 Traditional Medicare (ACO) Annual Wellness Visit 05/05 PNEUMOCOCCAL VACCINE 50+ YEARS (1 of 1 - PCV) 05/05/19 86 ZOSTER VACCINE (1 of 2) 1986 OSTEOPOROSIS SCREENING 2001 RSV VACCINE (60+ or ) (1 - 1-dose 75+ series) 2011 INFLUENZA VACCINE (#1) 2025 Insurance MEDICARE PART A AND B [facility] SUPP
--- OUTSIDE RECORDS SUMMARY | 2025-06-08 11:26 | XMS_ITS ---
Author Name Auto Generated, Auto Generated Organization [facility] ices Address [address] [place] [address] Phone [phone] Care Team Providers Care Tire Repair Mechanic Name Role Phone Anay Mccann Yana Unavailable [phone] Angel Lazo Unavailable [phone] Functional Status No Results Mental Status No Results Allergies and Intolerances Name Onset Date Reaction Severity No Known Allergies (Allergy) ThuMay 17 14:41:00 EDT 2023 Medications Medication Directions Start Date [...] 2023 * End Date: * Text: * shelter (current) use of anticoagulants* Code: * Start [...] EDT 2023 * End Date: * Text: Reason for Referral Past Medical History
--- OUTSIDE RECORDS SUMMARY | 2025-06-08 11:26 | XMS_ITS | Encounter Summary ---
Author Organization [facility] Address [address] [place] [address] Care Team Providers Care Ux Consultant Name Role Phone Unavailable Primary Care Provider Unavailabl e Reason for Referral * Eval and Treat (Routine) - Open Specialty Diagnoses / Procedures Referred By Anila leonard Referred To Contact Otolaryngology Diagnoses Follicular neoplasm of thyroid Procedures MO OFFICE/OUTPATIENT ESTABLISHED MOD MDM 30 MIN MO OFFICE/OUTPATIENT NEW MODERATE MDM 45 MINUTES Edmond Adame MD [address] [address] Phone: tel: fax: Referral ID Status Reason Start Date Expiration Date Visits Re quested Visits Authorized [id number] Open 06/08/2025 06/08/2026 1 1 Encounter Details Date Type Department Care Team (Late st Contact Info) Description 06/08/2025 10:15 AM CDT Office Visit [facility] Oncology and Hematology - Kenneth [address] [facility] [address] [place] [address] Edmond Adame MD [address] [place] [address] Follicular neoplasm of thyroid (Primary Dx) Social History Tobacco Use Types Packs/Day Years Used Date Smoking Tobacco: Never Smokeless Tobacco: Never Alcohol Use Standard Drinks/Week Comments Never 0 (1 standard drink = 0.6 oz pur e alcohol) Comments Unknown Sex and Gender Information Value Date Recorded Sex Assigned at Not on file Legal Sex Female 10:17 AM SINGLE WIRE SAW OPERATOR Gender Identity Not on file Sexual Orientation Not on file documented as of this encounter Last Filed Vital Signs Vital Sign Reading [...] oz) 06/08/2025 10:02 A M CDT Height - - Body Mass Index 30.08 01/16/2025 3:07 PM SINGLE WIRE SAW OPERATOR documented in this encounter Plan of Treatment Upcoming Encounters Date Type Department Care Team (Late st Contact Info) Description 06/22/2025 4:30 PM CDT Telephone Check Up [facility] Oncology and [place] [address] [place] [address] Edmond Adame MD [address] [place] [address] [address] [place] [address] 02/06/2026 10:00 AM CDT Office Visit [facility] Oncology and [facility] [address] [place] [address] Edmond Adame MD [address] [place] [address] [address] [place] [phone] Scheduled Orders Name Type Priority Associated Diagnoses Orde r Schedule THYROGLOBULIN ANTIBODY Lab Routine Follicular neoplasm of thyroid Expected: 06/08/2025, Expires: 06/08/2026 THYROGLOBULIN, TUMOR MARKER W/REFLEX Lab Routine Follicular neoplasm of thyroid Expected: 06/08/2025, Expires: 06/08/2026 TSH Lab Routine Follicular neoplasm of thyroid Expected: 06/08/2025, Expires: 06/08/2026 Scheduled Referrals Name Type Priority Associated Diagnoses Orde r Schedule AMB REFERRAL TO ENT Outpatient Referral Routine Follicular neoplasm of thyroid Ordered: 06/08/2025 documented as of this encounter Visit Diagnoses Diagnosis Follicular neoplasm of thyroid- Primary documented in this encounter
--- OUTSIDE RECORDS SUMMARY | 2025-06-08 11:26 | XMS_ITS | Clinical Summary ---
Author Organization [facility] [place] [address] Address [address] [place] [address] Care Team Providers Care Network Coordinator Name Role Phone Delma Whitmore NP Primary Care Provider [phone] Allergies Active Allergy Reactions Criticality Noted Date Comments Hydrocodone Oxycodone Medications losartan (COZAAR) 100 mg tablet Take 1 tablet (100 mg total) by mouth daily 3 Active multivit-hard rock miner blasting als/folic acid (CENTRUM ADULT 50 PLUS ORAL) [...] usitis, remote history of anemia, o; Comments: [facility] [place] - Hx Other Medical right total kne e replacement, left shoulder surger; Comments: [facility] [place] - Chronic kidney disease Social History [...] on file 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
--- OUTSIDE RECORDS SUMMARY | 2025-06-08 11:26 | XMS_ITS | Continuity of Care Document ---
Author Organization [facility] Address [address] [place] [address] Phone Care Team Providers Care Manager Consumer Name Role Phone Keith Del Rosario Unavailable Unavailable Advance Directives Directive Yes / No Effective Date File Name No Information Encounters Encounter Description Practice Location Reason(s) For Visit Diagnoses Date Provider Providers Copied on Encounter [facility], [address], [place], [place], [id number], [place] tel:[phone] [facility] No Information 0 7-200 6 [address] Edward. [address], [place], [address], [place]. tel:[phone] Referring Provider: Timi Chaves, [address] [facility], [place], [address]. tel:[phone] Family History Family Member Type Diagnosis Age [...]
--- OUTSIDE RECORDS SUMMARY | 2025-06-08 11:26 | XMS_ITS | Clinical Summary ---
Author Organization [facility] Address [address] [place] [address] Care Team Providers Care Infrastructure Technician Name Role Phone Thomas Christina MD Primary Care Provider Source Comments [facility],non-owned Affiliates and Associated Physician Practices is amultiple site organization consisting of ambulatory clinics and hospital sitesin [place], [place], [place] and [place]. This disclosure is being madepursuant to the Care Everywhere program and may not contain all information available regarding this patient. Last updated 18.[facility] Allergies No known active allergies Medications * [...] and heating? Not hard at all 05/14/2024 [facility] - Occupational Stress [...] place to sleep or slept in a [place] health care facility (including now)? No 05/14/2024 Comments No Sex and Gender Information Value Date Recorded Sex Assigned at Not on file Legal Sex Female 6:25 PM POST ANESTHESIA NURSE Gender Identity Not on file Sexual Orientation [...] season) 2024 DEPRESSION SCREENING 11/23/2024 INFLUENZA VACCINE (#1) 2025 2, 09/28/2018 HEPATITIS B VACCINE Aged Out No [...] age to complete this topic Insurance MEDICARE [facility] Advance Directives * LIMITED RESUSCITATION-PRIOR AND AFTER ARREST (Latest Code Status on File) Date Activated Date Inactivated Comments 05/07/2024 8:24 PM 05/17/2024 1:47 PM Question Answer Comments Limited Resuscitation: No Chest Compress ionNo Intubation, No Invasive Ventilation Care Teams Infrastructure Technician Relationship Specialty Start Date End Date Thomas Christina MD [address] [place] [id number] PCP - General 04/10/11
[2025-06-08 17:10] LABS: Thyroid Stimulating Hormone 0.996 uIU/mL (0.465-4.680)
== END 2025-06-08 11:08 | disposition home or self-care (01) ==
LOC: ANHLAB 11:09
PROVIDERS: PCP Nurse Practitioner Family; Visit Provider Internal Medicine Hematology & Oncology
DX: D47.9 Neoplasm of uncertain behavior of lymphoid, hematopoietic and related tissue, unspecified (principal)
CPT/HCPCS: 36415; 84432; 84443; 86800